=== PATIENT | male | born 1950 | race Caucasian/White ===

== ENCOUNTER → 2016-08-15 | Outpatient (CLI) | payer BC ==
[~2016-08-15] MED LIST: ALBU1AER9 INH; ALPR-411 PO; ASPI-435 PO; ATRINS NEB; ESOM40GR PO; FLUT50SP14 NAE; IPRA1AER2 INH; LEVA1NEB19 INH; MONT1TAB3 PO; OXGN; PARO1TAB29 PO; PSEU60TA80 PO; SYMIN160 INH; TIOTCAP INH
--- NOTE | 2016-08-15 16:12 | DIAGNOSTIC IMAGING REPORT ---
CHEST 2 VIEWS ROUTINE CLINICAL HISTORY: J44.9 COPD, very [id number] Chronic respiratory [id number] COMPARISON STUDY: 02/02/2016 FINDINGS: Emphysematous change. Mild chronic parenchymal fibrotic change. No acute infiltrate. IMPRESSION: Emphysematous and mild chronic fibrotic change. No acute process. Electronically signed by: Miguel Auguste M.D. 08/15/2016 4:11 PM Dictated Date/Time: 08/15/2016 4:10 PM
== END | disposition home or self-care (01) ==
LOC: C.RAD 15:43
PROVIDERS: ATTEND Physician Assistant
DX: J44.9 Chronic obstructive pulmonary disease, unspecified (principal); J96.10 Chronic respiratory failure, unspecified whether with hypoxia or hypercapnia

== ENCOUNTER → 2016-09-05 | Outpatient (CLI) | payer BC ==
--- NOTE | 2016-09-05 14:10 | DIAGNOSTIC IMAGING REPORT ---
CAROTID DOPPLER NECK ART HISTORY: I65.29 Carotid artery stenosis follow-up exam COMPARISON: Carotid Doppler 08/31/2015 TECHNIQUE: Multiple real time sonographic images of the carotid bifurcations were obtained assessing luong scale, color Doppler and spectral wave form appearance FINDINGS: RIGHT CAROTID: The peak systolic velocity measured 97.5 cm/sec. The end diastolic velocity measured 37.2 cm/sec. The ICA to CCA ratio measured 1.2 which correlates with a stenosis of 0-50%. There is mild degree of mixed plaquing within the right carotid bulb LEFT CAROTID: The peak systolic velocity measured 40.1 cm/sec. The end diastolic velocity measured 19.2 cm/sec. The ICA to CCA ratio measured 0.5 which correlates with a stenosis of 0-50%. There is a mild degree of mixed plaquing within the left carotid bulb. There is normal antegrade vertebral flow bilaterally. IMPRESSION: 1. Mild mixed plaquing of the bilateral carotid bulbs without hemodynamically significant stenosis. 2. Normal antegrade vertebral flow bilaterally. The above report was generated using voice recognition software. It may contain grammatical, syntax or spelling errors. Electronically signed by: Geronimo Hanna M.D. 09/05/2016 2:08 PM Dictated Date/Time: 09/05/2016 2:04 PM
== END | disposition home or self-care (01) ==
LOC: C.ULTR 13:16
PROVIDERS: ATTEND Surgery
DX: I65.23 Occlusion and stenosis of bilateral carotid arteries (principal)

== ENCOUNTER → 2016-11-10 | Outpatient (CLI) | payer BC ==
--- NOTE | 2016-11-10 15:27 | DIAGNOSTIC IMAGING REPORT ---
CT OF THE CHEST WITHOUT IV CONTRAST CLINICAL HISTORY: Pulmonary nodule. COMPARISON STUDY: Chest CT October 31, 2011 and October 04, 2015 and PET/CT December 14, 2014. CT DOSE: 245.51 mGycm TECHNIQUE: Axial images of the chest were obtained without IV contrast. Images were reviewed in the axial, sagittal, and coronal planes. IV contrast was not administered for this examination. A dose lowering technique was utilized adhering to the principles of ALARA. FINDINGS: No enlarged axillary, mediastinal or hilar lymph nodes are present. The size of the heart is normal. There is no pericardial effusion. No pneumothorax or pleural effusion is present. There is severe emphysema. There has been interval development of subpleural irregular opacity within the posterior segment of the right upper lobe and superior segment as well as the posterior basilar segment the right lower lobe since CT of October 04, 2015. A 6 cm noncalcified right lower lobe nodule shown image 191 of 371 is similar to chest CT of August 20, 2014. An adjacent centrally calcified nodule is unchanged and is benign. There are no new pulmonary nodules. The bony thorax and upper abdomen are unremarkable on this examination. There are calcified granulomas within the spleen. IMPRESSION: 1. Interval development of irregular subpleural opacities within the right upper and right lower lobes since chest CT of October 04, 2015. The findings favor an infectious process, possibly resolving. However, a follow-up chest CT in 3 months to ensure resolution is recommended to exclude the less likely possibility of a neoplasm. 2. No significant change in several pulmonary nodules since prior studies. These are likely benign. 3. Severe emphysema. Electronically signed by: Glenn Carrasquillo M.D. 11/10/2016 3:26 PM Dictated Date/Time: 11/10/2016 2:19 PM
== END | disposition home or self-care (01) ==
LOC: C.CTS 13:54
PROVIDERS: ATTEND Physician Assistant
DX: R91.8 Other nonspecific abnormal finding of lung field (principal); J43.9 Emphysema, unspecified

== ENCOUNTER → 2017-02-07 | Outpatient (CLI) | payer BC ==
--- NOTE | 2017-02-07 10:41 | DIAGNOSTIC IMAGING REPORT ---
(CHEST) THORAX WITHOUT CT DOSE: 245.95 mGy.cm HISTORY: Follow-up abnormal chest CT. J44.9 COPD, very [id number] scan TECHNIQUE: Multiaxial CT images of the chest were performed without contrast. A dose lowering technique was utilized adhering to the principles of ALARA. COMPARISON: Chest CT 11/10/2016. FINDINGS: Trace mucoid material within the trachea. The remaining central airways are patent. Severe emphysema is again noted. No pleural effusions. No pneumothorax. Dominant 6.3 cm bleb within the left lower lobe. A few scattered subcentimeter nodular densities remain unchanged and are considered to be benign. Calcified granuloma along the right major fissure remains unchanged. Peripheral airspace opacity seen within the right lower lobe and right upper lobe posteriorly have a most completely resolved in the interval. This is consistent with a resolving pneumonitis. No new focal lung consolidations. No suspicious lytic or blastic osseous lesions. No mediastinal or hilar lymphadenopathy. The heart is normal in size. Calcified granuloma seen within the liver and spleen. Healing right posterior 10th rib fracture. IMPRESSION: 1. Near complete resolution of the right lung peripheral airspace opacities. This is consistent with a resolving pneumonitis. 2. Severe emphysema. 3. Healing right posterior 10th rib fracture. Electronically signed by: Augusto Alcantar M.D. 02/07/2017 10:39 AM Dictated Date/Time: 02/07/2017 10:33 AM
== END | disposition home or self-care (01) ==
LOC: C.CTS 10:07
PROVIDERS: ATTEND Physician Assistant
DX: J44.9 Chronic obstructive pulmonary disease, unspecified (principal); R93.8 Abnormal findings on diagnostic imaging of other specified body structures; J43.9 Emphysema, unspecified; S22.31XD Fracture of one rib, right side, subsequent encounter for fracture with routine healing; X58.XXXD Exposure to other specified factors, subsequent encounter

== ENCOUNTER → 2017-02-14 | Outpatient (CLI) | payer BC ==
--- NOTE | 2017-02-14 11:32 | DIAGNOSTIC IMAGING REPORT ---
CHEST 2 VIEWS ROUTINE CLINICAL HISTORY: J43.9 Pulmonary [id number] dyspnea COMPARISON STUDY: 08/15/2016 FINDINGS: Stable chronic emphysematous and fibrotic change. No well-defined infiltrate. Moderate pulmonary hyperaeration stable. Diaphragmatic flattening also stable. IMPRESSION: Diffuse stable emphysematous change. No acute infiltrate. No change from the prior study. The above report was generated using voice recognition software. It may contain grammatical, syntax or spelling errors. Electronically signed by: Miguel Auguste M.D. 02/14/2017 11:30 AM Dictated Date/Time: 02/14/2017 11:29 AM
== END | disposition home or self-care (01) ==
LOC: C.RAD1850 10:53
PROVIDERS: ATTEND Physician Assistant
DX: J43.9 Emphysema, unspecified (principal)

== ENCOUNTER → 2017-03-21 | Outpatient (CLI) | payer OTHER | END | disposition home or self-care (01) | LOC: C.CPL 14:01 | PROVIDERS: ATTEND Physician Assistant | DX: R00.0 Tachycardia, unspecified (principal) ==

== ENCOUNTER → 2017-09-06 | Outpatient (CLI) | payer OTHER ==
--- NOTE | 2017-09-06 11:51 | DIAGNOSTIC IMAGING REPORT ---
BILATERAL CAROTID DOPPLER STUDY HISTORY: I65.29 Carotid artery stenosis Left carotid endarterectomy COMPARISON: Carotid Doppler 09/05/2016. TECHNIQUE: Real-time, grayscale, and color Doppler sonography of the carotid arteries was performed. Imaging reviewed in the transverse and longitudinal planes. All measurements were calculated based on NASCET criteria. FINDINGS: Antegrade flow is seen in the bilateral vertebral arteries. The brachial pressures are hemodynamically similar. Mild to moderate calcified plaque within the right carotid bifurcation. The peak systolic velocity within the right ICA is 100 cm/s. The right systolic ratio is 1.2. The peak systolic velocity within the left ICA is 48 cm/s. The left systolic ratio is 0.6. IMPRESSION: No hemodynamically significant stenosis seen within the carotid arteries. Electronically signed by: Augusto Alcantar M.D. 09/06/2017 11:50 AM Dictated Date/Time: 09/06/2017 11:49 AM
== END | disposition home or self-care (01) ==
LOC: C.ULTR 11:06
PROVIDERS: ATTEND Surgery
DX: I65.29 Occlusion and stenosis of unspecified carotid artery (principal)

== ENCOUNTER 2018-04-09 07:55 | Inpatient (IN) ==
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
[~2018-04-09 07:55] MED LIST changes: -ALBU1AER9 INH; -ALPR-411 PO; -ASPI-435 PO; -ATRINS NEB; +CEFAZOLIN 1000MG 1,000 MG/7.5 ML SYR IV SCH; -ESOM40GR PO; -FLUT50SP14 NAE; -IPRA1AER2 INH; -LEVA1NEB19 INH; +LR 15ML/HR IV SCH; -MONT1TAB3 PO; -OXGN; -PARO1TAB29 PO; -PSEU60TA80 PO; -SYMIN160 INH; -TIOTCAP INH
[2018-04-09 08:24] LABS: Hematocrit (blood only) 41.8 % (42-52); Hemoglobin 12.9 g/dL (14.0-18.0); Mean Corpuscular Volume 99.1 fL (80-100); Mean Platelet Volume 9.8 fL (7.4-10.4); Platelet Count 218 K/uL (130-400); RDW Coefficient of Variation 14.4 % (11.5-14.5); RDW Standard Deviation 51.7 fL (36.4-46.3); Red Blood Count 4.22 M/uL (4.7-6.1); White Blood Count 10.85 K/uL (4.8-10.8)
[2018-04-09 08:38] LABS: Mean Corpuscular Hgb Conc 30.9 g/dL (32-36)
[2018-04-09 08:39] LABS: BUN Creatinine Ratio 31.8 (10-20); Calcium 8.7 mg/dl (8.5-10.1); Creatinine Clr Calc Pharmacy 75.8 ml/min; Est GFR (Non-African American) 95.7
[2018-04-09] MEDS ORDERED: ALBUTEROL 0.083% NEBU SOLN 3 ML VIAL NEB STA (08:51)
[2018-04-09] MEDS ORDERED: CEFAZOLIN 1,000 MG/7.5 ML IV PUSH IV ONE (10:10)
[2018-04-09] MEDS ORDERED: MIDAZOLAM HCL 1 MG/ML 2ML VIAL ONE (10:39)
[2018-04-09] MEDS ORDERED: fentaNYL citrate 100 MCG/2 ML VIAL ONE (11:47)
[2018-04-09] MEDS ORDERED: KETAMINE HCL INJ 50 MG/ML 10 ML VIAL ONE (11:47)
[2018-04-09] MEDS ORDERED: BUPIVACAINE/EPINEPHRINE 0.5% MPF 1:200,000 30 ML VIAL ONE (12:06)
[2018-04-09] MEDS ORDERED: ALBUMIN HUMAN 5% 12.5 GM/250 ML VIAL IV ONE (12:07)
[2018-04-09] MEDS ORDERED: LIDOCAINE 2% JELLY 5 ML TUBE ONE (12:10)
--- NOTE | 2018-04-09 12:11 | History & Physical Bridge Note ---
Date of Service April 09, 2018 History & Physical Bridge Note I have examined the patient, reviewed the History & Physical and in the interval since the performance of the History & Physical I have noted the following changes of clinical significance: no changes noted
--- NOTE | 2018-04-09 12:37 | Communication Note ---
Date of Service: April 09, 2018 Patient oxygen saturation dropped to the 60s when laying flat due to his COPD. At this point we thought to be better to try and optimize his respiratory status prior to doing the surgery. He will be admitted today for optimization.
--- NOTE | 2018-04-09 13:08 | Anesthesiology Progress Note ---
Date of Service April 09, 2018 Patient case cancelled due to severe hypoxemia. SPO2 % 65% on oxygen. Pt unable to lie supine. Pt panics.D/W Dr Beck, he agrees that the pt should be admitted and optimized to the extent piossible. Pt is too high risk for GETA at this time. He may require postop mechanical ventilation in ICU indefinitely. Physical Exam Vital Signs Last Vital Signs Temp 36.6 C 04/09/18 08:39 Pulse 90 04/09/18 08:59 Resp 26 H 04/09/18 08:59 BP 97/57 L 04/09/18 08:39 Pulse Ox 96 04/09/18 08:59 Results & Data Medications Administered Lactated Ringer's (Lr) 1,000 mls @ 80 mls/hr IV .[id number] LITO Stop: 04/09/18 18:29 Last Infusion: 04/09/18 12:21 Dose: 0 mls/hr Admin: 04/09/18 08:45 Dose: 80 mls/hr
[2018-04-09] MEDS ORDERED: ARFORMOTEROL TART 15MCG/2ML VIAL INH PRN (14:42)
[2018-04-09] MEDS ORDERED: ALPRAZolam 0.25 MG TABLET PO PRN (14:42)
[2018-04-09] MEDS ORDERED: ALBUTEROL HFA 8 GM INHALER INH PRN (14:42)
[2018-04-09] MEDS: IPRATROPIUM BROMIDE/ALBUTEROL respimat INH INH SCH ×2 (16:11→19:12)
--- NOTE | 2018-04-09 17:33 | XRay Report ---
XR chest 2V routine HISTORY: copd, hypoxia COMPARISON: Chest 02/27/2018. FINDINGS: No pneumothorax. No pleural effusions. The heart is normal in size. Severe emphysema persis ts. Improved aeration within the right midlung zone linear density. No new focal lung consolidations. No evidence for edema. IMPRESSION: 1. Severe emphysema. 2. Near complete resolution of the right midlung zone linear density. Electronically signed by: Augusto Alcantar M.D. 04/09/2018 5:31 PM
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
[2018-04-09] MEDS: FLUTICASONE/SALMETEROL (ADVAIR) 500/50 INH 14 PUFF INH SCH (20:49)
[2018-04-09] MEDS: ATORVASTATIN 40 MG TAB PO SCH (20:50)
[2018-04-09] MEDS: guaiFENesin 600 MG TABCR PO SCH (20:50)
[2018-04-09] MEDS: MONTELUKAST SODIUM 10 MG TABLET PO SCH (20:51)
[2018-04-09] MEDS: CETIRIZINE HCL 10 MG TABLET PO SCH (20:52)
[2018-04-09] MEDS: ALBUT/IPRATROP 3MG/0.5MG NEB 3 ML VIAL NEB SCH (20:57)
[2018-04-09] MEDS ORDERED: PSEUDOEPHEDRINE HCL 30 MG TAB PO SCH (21:00)
[2018-04-09] MEDS ORDERED: MUPIROCIN 2% OINT 22 GM TUBE EXT PRN (21:00)
[2018-04-09] MEDS ORDERED: PSEUDOEPHEDRINE GUAIFENESIN PO SCH (21:00)
[2018-04-09] MEDS ORDERED: methylPREDNISolone 20 MG in SYRINGE 0 ML IV SCH (21:00)
[2018-04-09] MEDS: methylPREDNISolone 60 MG in SYRINGE 0 ML IV SCH (21:52)
[2018-04-10] MEDS: methylPREDNISolone 60 MG in SYRINGE 0 ML IV SCH ×3 (04:10→20:18)
[2018-04-10] MEDS: ALBUT/IPRATROP 3MG/0.5MG NEB 3 ML VIAL NEB SCH ×4 (07:21→18:50)
[2018-04-10] MEDS: guaiFENesin 600 MG TABCR PO SCH ×2 (07:59→20:18)
[2018-04-10] MEDS: ASPIRIN 81 MG ECTAB PO SCH (07:59)
[2018-04-10] MEDS: PARoxetine HCl 20 MG TAB PO SCH (07:59)
[2018-04-10] MEDS: FLUTICASONE/SALMETEROL (ADVAIR) 500/50 INH 14 PUFF INH SCH ×2 (08:00→20:17)
[2018-04-10] MEDS: PANTOprazole 40 MG TAB PO SCH (08:00)
[2018-04-10] MEDS: TIOTROPIUM BROMIDE 5 PUFF/90 MCG INH INH SCH (08:01)
--- NOTE | 2018-04-10 12:11 | Surgery Progress Note ---
Date of Service April 10, 2018 Assessment & Plan (1) AAA (abdominal aortic aneurysm) without rupture: We will plan on a endovascular repair of his abdominal aortic aneurysm under local with sedation if his respiratory status improves. (2) COPD (chronic obstructive pulmonary disease): This patient has exacerbation of his chronic obstructive lung disease. He is being seen and managed by medicine and pulmonary medicine. Subjective Patient claims he is feeling a little better today. He is still wheezing but is able to breathe better than what he did yesterday. Physical Exam 2 Vital Signs (Past 24 Hours): Last Vital Signs Temp 36.6 C 04/10/18 11:04 Pulse 91 H 04/10/18 11:04 Resp 18 04/10/18 11:04 BP 133/65 04/10/18 11:04 Pulse Ox 98 04/10/18 11:04 Patient is awake alert oriented x3. He is has bilateral wheezes. He does appear slightly short of breath.
--- NOTE | 2018-04-10 15:52 | Hospitalist Progress Note ---
Date of Service April 10, 2018 Assessment & Plan (1) AAA (abdominal aortic aneurysm) without rupture: No concern for AAA rupture. Planning for OR once pulm status is more situated. - Defer to vascular team for surgical planning (2) COPD (chronic obstructive pulmonary disease): Still wheezing on exam today, but agree with initial hospitalist that it is uncertain if wheezing is baseline. Patient stated he feels this was more of a panic attack, and reports he is pretty much at baseline. Currently breathing comfortably with his home 3L NC. - Continue methylprednisolone - Continue home Advair, Singular, and Spiriva inhalers - Continue DuoNebs standing - From medical standpoint, I think he would likely be stable for surgery in the next 1-2 days, but also defer to pulm as this is his main concern (3) Anxiety: Chronic issue; appears fairly severe. - Continue home meds - Could consider small dose of Ativan prior to going to surgery to help avert a panic attack that might delay surgery further (4) PUD (peptic ulcer disease): Continue home meds (5) Tobacco use disorder: Nicotine patch (6) DVT prophylaxis: As per vas surgery Thank you for the consult. We will follow along with any issues. Subjective 67yo M w/ hx of severe COPD who presented with shortness of breath prior to induction. Patient reports his breathing has improved today. He is still wheezing but is able to breathe better than what he did yesterday. Reports no fevers/chills, chest pain, abdominal pain, nausea, or vomiting. Physical Exam 2 Vital Signs (Past 24 Hours): Last Vital Signs Temp 36.6 C 04/10/18 11:04 Pulse 94 H 04/10/18 15:26 Resp 18 04/10/18 15:26 BP 133/65 04/10/18 11:04 Pulse Ox 97 04/10/18 15:26 Constitutional: WD/WN, vitals as above Eyes: + anicteric sclerae Neck: normal visual inspection and trachea midline Respiratory: normal respiratory effort and + prolonged expiratory phase; no respiratory distress and no labored breathing Auscultation: + wheezes ( expiratory and inspiratory) Cardiovascular: Rate/Rhythm: regular rate and regular rhythm Gastrointestinal (Abdomen): Inspection/Auscultation: abdomen not distended Percussion/Palpation: abdomen soft; abdomen nontender Musculoskeletal: Head/Neck/Chest: normocephalic and head atraumatic Skin: no rashes, warm and dry Neurologic: awake; not confused Speech / Cognition: normal speech Psychiatric: A+Ox3, euthymic affect
--- NOTE | 2018-04-10 19:27 | Pulmonology Progress Note ---
Date of Service April 10, 2018 Assessment & Plan (1) COPD (chronic obstructive pulmonary disease): Impression: 1. Severe COPD, with exacerbation, gold level 3, home O2 dependent. 2. Nicotine addiction. 3. AAA, preop eval for repair from pulmonary standpoint. Plan: 1. This patient with advanced COPD, currently in exacerbation, going for vascular procedure, place the patient at risk greater than 50% for sedation and 100% for general anesthesia by ATS criteria. His risk stratification is very high for intracavitary procedure. 2. Incentive spirometry. 3. Allow the patient adequate time on systemic steroids, which I will increase it to every 6 hours, prior to the procedure. Hopefully in the next 24-48 hours. 4. Oxygen and bronchodilators. Thank you, will follow. Subjective The patient continues to have increasing shortness of breath, persistent wheezing, is nonambulatory due to shortness of breath. No fever. Physical Exam 2 Vital Signs (Past 24 Hours): Last Vital Signs Temp 36.7 C 04/10/18 15:16 Pulse 102 H 04/10/18 18:50 Resp 22 04/10/18 18:50 BP 147/91 H 04/10/18 15:16 Pulse Ox 94 04/10/18 18:50 Physical Exam: Vital signs are stable, no fever, O2 saturation is 94% on 3 L, no JVP, bilateral wheezing, S1-S2, abdomen is benign, no edema. Cachectic. Results & Data Laboratory Results Labs were reviewed from yesterday, are at his baseline. Diagnostic Findings Imaging also were reviewed which showed advanced COPD. PFTs also were reviewed which showed gold level 3 with advanced COPD, space what 212%.
[2018-04-10] MEDS: ATORVASTATIN 40 MG TAB PO SCH (20:18)
[2018-04-10] MEDS: MONTELUKAST SODIUM 10 MG TABLET PO SCH (20:18)
[2018-04-10] MEDS: CETIRIZINE HCL 10 MG TABLET PO SCH (20:18)
[2018-04-11] MEDS: methylPREDNISolone 60 MG in SYRINGE 0 ML IV SCH ×3 (05:23→20:13)
[2018-04-11 06:47] LABS: Hematocrit (blood only) 34.8 % (42-52); Hemoglobin 11.1 g/dL (14.0-18.0); Mean Corpuscular Hgb Conc 31.9 g/dL (32-36); Mean Corpuscular Volume 96.1 fL (80-100); Mean Platelet Volume 9.5 fL (7.4-10.4); Platelet Count 181 K/uL (130-400); RDW Coefficient of Variation 14.1 % (11.5-14.5); RDW Standard Deviation 49.6 fL (36.4-46.3); Red Blood Count 3.62 M/uL (4.7-6.1); White Blood Count 9.69 K/uL (4.8-10.8)
[2018-04-11] MEDS: ALBUT/IPRATROP 3MG/0.5MG NEB 3 ML VIAL NEB SCH ×4 (07:01→19:12)
[2018-04-11 07:25] LABS: BUN Creatinine Ratio 34.5 (10-20); Calcium 8.5 mg/dl (8.5-10.1); Creatinine Clr Calc Pharmacy 110.2 ml/min; Est GFR (African American) 129.7; Est GFR (Non-African American) 111.9; Magnesium 2.2 mg/dl (1.8-2.4); Potassium 4.2 mmol/L (3.5-5.1)
[2018-04-11] MEDS: FLUTICASONE/SALMETEROL (ADVAIR) 500/50 INH 14 PUFF INH SCH ×2 (08:42→20:11)
[2018-04-11] MEDS: ASPIRIN 81 MG ECTAB PO SCH (08:44)
[2018-04-11] MEDS: PARoxetine HCl 20 MG TAB PO SCH (08:44)
[2018-04-11] MEDS: guaiFENesin 600 MG TABCR PO SCH ×2 (08:44→20:12)
[2018-04-11] MEDS: PANTOprazole 40 MG TAB PO SCH (08:45)
[2018-04-11] MEDS: TIOTROPIUM BROMIDE 5 PUFF/90 MCG INH INH SCH (08:45)
[2018-04-11] MEDS: ALBUTEROL HFA 8 GM INHALER INH PRN ×2 (08:49→13:42)
[2018-04-11] MEDS ORDERED: SODIUM CHLORIDE 0.9% 250 ML IV PRN (13:05)
--- NOTE | 2018-04-11 13:14 | Surgery Progress Note ---
Date of Service April 11, 2018 Assessment & Plan (1) AAA (abdominal aortic aneurysm) without rupture: We are planning to have him undergo a percutaneous endovascular repair of his abdominal aortic aneurysm tomorrow under local with sedation. (2) COPD (chronic obstructive pulmonary disease): He appears fairly stable from his COPD at this time on his steroid dose. Subjective Patient claims he is feeling a little better today. He is still wheezing slightly. He is able to lay flat with one pillow without any shortness of breath. Physical Exam 2 Vital Signs (Past 24 Hours): Last Vital Signs Temp 36.9 C 04/11/18 11:45 Pulse 99 H 04/11/18 11:45 Resp 16 04/11/18 11:45 BP 156/75 H 04/11/18 11:45 Pulse Ox 94 04/11/18 11:45 On exam he has distant breath sounds. There is still a small amount of wheezing present in both lung verma.
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
--- NOTE | 2018-04-11 16:27 | Hospitalist Progress Note ---
Date of Service April 11, 2018 Assessment & Plan (1) AAA (abdominal aortic aneurysm) without rupture: No concern for AAA rupture. Planning for OR once pulm status is more situated. - Defer to vascular team for surgical planning - Likely tomorrow (2) COPD (chronic obstructive pulmonary disease): Still wheezing on exam today, but improved. Agree with initial hospitalist that it is uncertain if wheezing is baseline. Patient stated he feels this was more of a panic attack, and reports he is pretty much at baseline. Currently breathing comfortably with his home 3L NC. - Continue methylprednisolone (increased by pulmonology on 04/10) - Continue home Advair, Singular, and Spiriva inhalers - Continue DuoNebs standing - From medical standpoint, I think he would likely be stable for surgery, but defer to pulm (3) COPD exacerbation: (4) Anxiety: Chronic issue; appears fairly severe. - Continue home meds - Could consider small dose of Ativan prior to going to surgery to help avert a panic attack that might delay surgery further (5) PUD (peptic ulcer disease): Continue home meds (6) Tobacco use disorder: Nicotine patch (7) Weight loss: Cachexia/underweight/moderate malnutrition Clinical Indicators: Noted pt with BMI of 17.4. Per carding machine feeder assessment, pt has moderate loss of muscle mass seen in the clavicle bone region. Has had a wt loss of 10 lb (7.6%) in the past 6 months and a reported overall wt loss of 100 lb in the last couple of years. - Provide high kcal/high protein snacks snacks bid btwn meals, liberalize regular diet, monitor oral intake, weights and labs (8) Chronic hypoxemic respiratory failure: Chronic hypoxic respiratory failure Clinical Indicators: 67 yo male presenting for AAA repair who became dyspenic when being prepared for surgery. Documentation indicates pt with severe COPD with chronic home O2 use. Treatment: chronic tx includes home O2 use, albuterol nebs, combivent, advair, brovana, singulair, spiriva (9) DVT prophylaxis: As per vas surgery Thank you for the consult. We will follow along with any issues. Subjective 67yo M w/ hx of severe COPD who presented with shortness of breath prior to induction. Patient reports his breathing has improved today. He's basically at baseline. No cough. Reports no fevers/chills, chest pain, abdominal pain, nausea, or vomiting. Physical Exam 2 Vital Signs (Past 24 Hours): Last Vital Signs Temp 36.9 C 04/11/18 11:45 Pulse 95 H 04/11/18 15:45 Resp 18 04/11/18 15:45 BP 156/75 H 04/11/18 11:45 Pulse Ox 97 04/11/18 15:45 Constitutional: WD/WN, vitals as above Eyes: normal visual verma by confrontation and + anicteric sclerae Neck: normal visual inspection and trachea midline Respiratory: normal respiratory effort and + prolonged expiratory phase; no respiratory distress and no labored breathing Auscultation: + wheezes ( expiratory and inspiratory) Cardiovascular: Rate/Rhythm: regular rate and regular rhythm Gastrointestinal (Abdomen): Inspection/Auscultation: abdomen not distended Percussion/Palpation: abdomen soft; abdomen nontender Musculoskeletal: Head/Neck/Chest: normocephalic and head atraumatic Skin: no rashes, warm and dry Neurologic: awake; not confused Speech / Cognition: normal speech Psychiatric: A+Ox3, euthymic affect
[2018-04-11] MEDS: ATORVASTATIN 40 MG TAB PO SCH (20:12)
[2018-04-11] MEDS: CETIRIZINE HCL 10 MG TABLET PO SCH (20:13)
[2018-04-11] MEDS: MONTELUKAST SODIUM 10 MG TABLET PO SCH (20:13)
--- NOTE | 2018-04-11 21:11 | Pulmonology Progress Note ---
Date of Service April 11, 2018 Assessment & Plan (1) COPD (chronic obstructive pulmonary disease): Impression: 1. Severe COPD, with exacerbation, gold level 3, home O2 dependent. 2. Nicotine addiction. 3. AAA, preop eval for repair from pulmonary standpoint. Plan: 1. This patient with advanced COPD, currently in exacerbation, going for vascular procedure, place the patient at risk greater than 50% for sedation and 100% for general anesthesia by ATS criteria. His risk stratification is high for intracavitary procedure. However, given the necessity of the procedure, the patient is medically clear from pulmonary standpoint to the procedure. Would be glad to take him after the procedure to the ICU. 2. Incentive spirometry. 3. Anxiety is playing a role in this patient, I will add Xanax twice daily. 4. Oxygen and bronchodilators. Thank you, will follow. Subjective He is feeling better, he continues to be anxious, concerned about the procedure he is having tomorrow, I assured him that we do not anticipate bad outcome. I will be glad to take him into the ICU after the procedure. Physical Exam 2 Vital Signs (Past 24 Hours): Last Vital Signs Temp 36.9 C 04/11/18 19:24 Pulse 108 H 04/11/18 19:24 Resp 22 04/11/18 19:24 BP 154/86 H 04/11/18 19:24 Pulse Ox 94 04/11/18 19:24 Physical Exam: Appeared to be apprehended, although his vital signs are stable , he is on 5 L of oxygen 94%. Slightly tachycardic. No JVP, does not use accessory muscles, wheezing is scattered, S1-S2 regular rate and rhythm, abdomen is benign, no edema, cold extremities. No rash. Results & Data Laboratory Results No leukocytosis, the rest of his labs has been stable. Diagnostic Findings No new imaging.
[2018-04-11] MEDS: ALPRAZolam 0.25 MG TABLET PO SCH (22:02)
[2018-04-12] MEDS: methylPREDNISolone 60 MG in SYRINGE 0 ML IV SCH ×2 (05:26→09:56)
[2018-04-12] MEDS ORDERED: CEFAZOLIN 1000MG 1,000 MG/7.5 ML SYR IV SCH (06:00)
[2018-04-12] MEDS ORDERED: HYDROCORTISONE SOD SUCCINATE 100 MG/2 ML VIAL IM SCH (06:00)
--- NOTE | 2018-04-12 07:00 | History & Physical Bridge Note ---
Date of Service April 12, 2018 History & Physical Bridge Note Patient for PEVAR of his AAA today under Mac anesthesia. I have discussed the risks options and benefits of the procedure with the patient. The patient understands the risks options and benefits and agrees to the procedure. I have examined the patient, reviewed the History & Physical and in the interval since the performance of the History & Physical I have noted the following changes of clinical significance: no changes noted
[2018-04-12 07:20] LABS: Hematocrit (blood only) 36.9 % (42-52); Hemoglobin 11.5 g/dL (14.0-18.0); Mean Corpuscular Hgb Conc 31.2 g/dL (32-36); Mean Corpuscular Volume 96.3 fL (80-100); Mean Platelet Volume 9.6 fL (7.4-10.4); Platelet Count 191 K/uL (130-400); RDW Coefficient of Variation 14.5 % (11.5-14.5); RDW Standard Deviation 51.6 fL (36.4-46.3); Red Blood Count 3.83 M/uL (4.7-6.1)
[2018-04-12] MEDS: ALBUT/IPRATROP 3MG/0.5MG NEB 3 ML VIAL NEB SCH ×4 (07:20→20:12)
[2018-04-12 07:46] LABS: BUN Creatinine Ratio 43.9 (10-20); Calcium 8.7 mg/dl (8.5-10.1); Creatinine Clr Calc Pharmacy 108.1 ml/min; Est GFR (African American) 128.7; Magnesium 2.2 mg/dl (1.8-2.4); Potassium 4.2 mmol/L (3.5-5.1)
[2018-04-12] MEDS: FLUTICASONE/SALMETEROL (ADVAIR) 500/50 INH 14 PUFF INH SCH ×2 (09:15→19:29)
[2018-04-12] MEDS: TIOTROPIUM BROMIDE 5 PUFF/90 MCG INH INH SCH (09:15)
[2018-04-12] MEDS ORDERED: LIDOCAINE/EPINEPHRINE 1% INJ 50 ML VIAL ONE (09:35)
[2018-04-12] MEDS ORDERED: LIDOCAINE 2% JELLY 5 ML TUBE ONE (09:49)
[2018-04-12] MEDS ORDERED: HYDROCORTISONE SOD SUCCINATE 100 MG/2 ML VIAL ONE (09:51)
[2018-04-12] MEDS ORDERED: HYDROCORTISONE SOD SUCCINATE 100 MG/2 ML VIAL IV SCH (10:15)
--- NOTE | 2018-04-12 11:51 | Post Operative Brief Note ---
Immediate Post Op Note v1 Date of Surgery April 12, 2018 Pre & Post Diagnosis Operation Date: 04/09/18 10:20 <No data on this case meets the specified criteria> Operation Date: 04/12/18 10:40 Pre-Op Diagnosis: Abdominal Aortic Aneurysm Post-Op Diagnosis: Abdominal Aortic Aneurysm Procedure Operation Date: 04/09/18 10:20 Actual Procedures p Percutaneous Endovascular Aneurysm Repair - Evan Beck MD Operation Date: 04/12/18 10:40 Actual Procedures p Percutaneous Endovascular Aneurysm Repair(Bilateral) - Evan Beck MD Surgeon Evan Beck MD Supervisor Corduroy Cutting NONE Estimated Blood Loss 100 Findings Consistent with Post-Op Diagnosis Drains Mejia Catheter (16 Turk[place] 10 cc balloon inserted at 1048 by Federico Lowry RN without difficulty) Anesthesia Type MAC Complications none Disposition Accompanied Patient To Recovery: No Disposition: Recovery Room
[2018-04-12] MEDS ORDERED: ARISTA ABSORBABLE HEMOSTAT 3GM TOP ONE (11:58)
[2018-04-12] MEDS ORDERED: VISIPAQUE IV PRN (11:58)
[2018-04-12] MEDS ORDERED: ALBUTEROL 0.083% NEBU SOLN 3 ML VIAL INH PRN (12:09)
[2018-04-12] MEDS ORDERED: ONDANSETRON INJ 2 MG/ML 2 ML VIAL IV PRN (12:09)
[2018-04-12] MEDS ORDERED: LABETALOL HCL IV 5 MG/ML 20ML IV PRN (12:09)
[2018-04-12] MEDS ORDERED: ATROPINE SULFATE 0.1 MG/ML 10ML SYR IV PRN (12:09)
[2018-04-12] MEDS ORDERED: PROMETHAZINE HCL 12.5 MG in SODIUM CHLORIDE 0.9% 50 ML IV PRN (12:09)
[2018-04-12] MEDS ORDERED: NALOXONE HCL 0.4 MG/1 ML VIAL/CARP IV PRN (12:09)
[2018-04-12] MEDS ORDERED: ePHEDrine sulfate 50 MG/ML AMP IV PRN (12:09)
--- NOTE | 2018-04-12 12:23 | Operative Report ---
Post Operative Report Pre & Post Diagnosis Operation Date: 04/09/18 10:20 <No data on this case meets the specified criteria> Operation Date: 04/12/18 10:40 Pre-Op Diagnosis: Abdominal Aortic Aneurysm Post-Op Diagnosis: Abdominal Aortic Aneurysm Procedure Operation Date: 04/09/18 10:20 Actual Procedures p Percutaneous Endovascular Aneurysm Repair - Evan Beck MD Operation Date: 04/12/18 10:40 Actual Procedures p Percutaneous Endovascular Aneurysm Repair, Bilateral percutaneous femoral artery closures, ultrasound guidance for left femoral artery puncture - Evan Beck MD Surgeon Evan Beck MD Rail Layer NONE Estimated Blood Loss 100 Findings Consistent with Post-Op Diagnosis Specimens None Anesthesia Type MAC Complications none Disposition Accompanied Patient To Recovery: No Disposition: Recovery Room Indications This patient is a 67-year-old gentleman with an enlarging abdominal aortic aneurysm. Is now 5.5 cm in size. He has severe COPD. An endovascular repair under local with sedation was recommended. He is not a candidate for an open repair. I have discussed the risks options and benefits of the procedure with the patient. The patient understands the risks options and benefits and agrees to the procedure. Description of Procedure The patient was taken to the operating room placed in the supine position. After both groins were prepped and draped in a sterile manner local anesthetic was administered to the right groin. A percutaneous puncture was made of the right common femoral artery. Wire was inserted a 5 [place] sheath was inserted over the wire. An injection done at that time showed the sheath to be in the distal common femoral artery. We therefore re-poked the common femoral artery higher up. This was in the main common femoral artery in the midportion. We then preclosed it with 2 Perclose devices. We then inserted an 8 [place] sheath. 035 Glidewire was inserted and passed up to the super renal aorta. A Kumpe catheter was inserted and the wire was exchanged to a Marquez wire. A [place] sheath was then exchanged to a 12 [place] sheath. We then anesthetized the left groin. An attempt was made to percutaneous puncture of the left common femoral artery. Artery could not be entered. We then used ultrasound to image the artery. The artery was patent. We then used ultrasound guidance to puncture the artery and the midportion. A wire was inserted. 5 [place] sheath was then inserted over the wire. An injection then showed this puncture to be in the common femoral artery on the left side. The puncture was then pre-closed with 3 Perclose devices. We then passed an 035 wire into the suprarenal aorta. Kumpe catheter was then used to exchange this wire to a Marquez wire. The puncture was then dilated with a 12 [place] dilator followed by 16 [place] dilator. We then inserted an 18 [place] sheath. A pigtail was inserted up the right groin over the Marquez wire. A 28 x 14-1/2 x 16 excluder device was inserted through the left sheath. It was passed up to the infrarenal aorta. The Marquez wire was removed from the pigtail and an injection was then performed. Aortogram showed where the renal arteries were. The graft was then positioned just below the renal arteries. The main body was then opened proximally. Another injection was done to confirm the positioning. It was positioned just below the renal arteries. We then deployed the hooks. The 18 [place] sheath had been pulled down below the gait prior to deploying the main body. We then pulled the 12 [place] sheath down into the iliac. 035 wire was inserted through the pigtail and the pigtail was removed. We then inserted a Kumpe catheter. Using a Kumpe catheter and an 035 Glidewire the the gait was cannulated. The Kumpe was passed up into the main body. Wire was pulled back and the Kumpe spun easily. We then remove the 035 wire and inserted a Marquez wire. The pigtail was then inserted. 12 [place] sheath was pulled back down into the external iliac. An injection was then performed which showed the internal iliac artery origin. Using a marker pig was decided to use a 14 x 12 contralateral limb. The pigtail was removed. Using the 12 [place] dilator from the sheath the sheath was advanced into the gate. Dilator was then removed. The 14 x 12 contralateral limb was inserted. It was placed in appropriate position. The 12 [place] sheath was pulled downward and the limb was deployed. Using a Q50 balloon up the right side the main body and contralateral limb were approximated to the wall. Both proximal distal ends of the overlaps were ballooned with the Q50 balloon. This was then removed. It was passed up the left groin and the contralateral limb was then ballooned to approximate the distal end. Balloon was then removed. Pigtail was reinserted. A final arteriogram was done showing the proximal distal ends of the graft without any type I endoleak. No type II endoleak's or type III endoleak's were visualized. There was a kink in the external iliac on the left side. We then pulled the sheath down slightly as well as the wire and reinjected. Once the external iliac return to its normal curvature the artery was widely patent with no narrowing seen. We then reinserted the 035 wire through the pigtail with the pigtail. The 12 [place] sheath was then pulled and the Perclose was tied without difficulty. Adequate hemostasis was noted of the right side. We then reinserted the wire through the 5 [place] sheath and this was closed using a Star closure device. The left side was then addressed. The sheath was pulled from the left side all 3 Perclose were were tied. Adequate hemostasis was seen in the left side. Shant was used in the puncture sites. Sterile dressings were applied to the wounds.The patient left the operation room in satisfactory condition and tolerated the procedure well. All needle and sponge counts were correct at the end of the procedure. I attest to the content of the Intraoperative Record and any orders documented therein. Any exceptions are noted below.
--- NOTE | 2018-04-12 13:15 | Anesthesiology Progress Note ---
Date of Service April 12, 2018 Anesthesia Post Procedure Vital Signs Vital Signs: Temp Pulse Pulse Pulse Resp BP Pulse Ox 04/12/18 13:10 84 15 117/73 95 04/12/18 13:00 84 20 149/85 H 95 04/12/18 12:50 37.0 C 84 18 144/82 H 100 04/12/18 12:40 86 20 156/89 H 100 04/12/18 12:30 85 18 152/88 H 100 04/12/18 12:20 91 H 18 150/81 H 100 04/12/18 12:12 36.3 C L 94 H 19 157/78 H 100 04/12/18 10:03 37.3 C 92 H 22 146/87 H 04/12/18 07:23 88 16 96 04/12/18 07:12 36.3 C L 106 H 19 141/75 H 94 04/12/18 03:32 36.5 C 97 H 19 126/75 95 04/12/18 00:00 95 H 04/11/18 23:13 36.7 C 102 H 18 144/84 H 95 04/11/18 19:24 36.9 C 108 H 22 154/86 H 94 04/11/18 19:12 101 H 16 98 04/11/18 16:44 109 H 04/11/18 16:31 36.5 C 95 H 24 137/69 94 04/11/18 15:45 95 H 18 97 04/11/18 15:25 36.7 C 95 H 18 136/76 97 Pain Intensity Bilateral Groin: Pain Intensity: 0 Notes Mental Status: alert / awake / arousable Patient Amnestic to Procedure: Yes Nausea / Vomiting: adequately controlled Pain: adequately controlled Airway Patency, RR, SpO2: stable & adequate BP & HR: stable & adequate Hydration State: stable & adequate Anesthetic Complications: no major complications apparent
[2018-04-12] MEDS ORDERED: OXYCODONE/ACETAMINOPHEN 5mg/325mg TAB PO PRN (14:20)
[2018-04-12] MEDS: guaiFENesin 600 MG TABCR PO SCH ×2 (14:39→19:30)
[2018-04-12] MEDS: PARoxetine HCl 20 MG TAB PO SCH (14:39)
[2018-04-12] MEDS: PANTOprazole 40 MG TAB PO SCH (14:39)
[2018-04-12] MEDS: ASPIRIN 81 MG ECTAB PO SCH (14:39)
[2018-04-12] MEDS: ALPRAZolam 0.25 MG TABLET PO SCH ×2 (14:40→19:33)
[2018-04-12] MEDS: D5W AND 1/2NSS 1,000 ML IV SCH (14:42)
--- NOTE | 2018-04-12 15:49 | Hospitalist Progress Note ---
Date of Service April 12, 2018 Assessment & Plan (1) AAA (abdominal aortic aneurysm) without rupture: No concern for AAA rupture. - S/p endovascular AAA repair with Dr. Beck on 04/12 - Follow up per primary team (2) COPD (chronic obstructive pulmonary disease): Still mild wheezing on exam today, but improved. Agree with initial hospitalist that it is uncertain if wheezing is baseline. Currently breathing comfortably with his home 3L NC. - Continue methylprednisolone (increased by pulmonology on 04/10) - Continue home Advair, Singular, and Spiriva inhalers - Continue DuoNebs standing - From medical standpoint, he is stable for discharge with a steroid taper and outpatient PCP or pulmonology follow up (3) COPD exacerbation: (4) Anxiety: Chronic issue; appears fairly severe. - Continue home meds (5) PUD (peptic ulcer disease): Continue home meds (6) Tobacco use disorder: Nicotine patch (7) Weight loss: Cachexia/underweight/moderate malnutrition Clinical Indicators: Noted pt with BMI of 17.4. Per food service manager assessment, pt has moderate loss of muscle mass seen in the clavicle bone region. Has had a wt loss of 10 lb (7.6%) in the past 6 months and a reported overall wt loss of 100 lb in the last couple of years. - Provide high kcal/high protein snacks snacks bid btwn meals, liberalize regular diet, monitor oral intake, weights and labs (8) Chronic hypoxemic respiratory failure: Chronic hypoxic respiratory failure Clinical Indicators: 67 yo male presenting for AAA repair who became dyspenic when being prepared for surgery. Documentation indicates pt with severe COPD with chronic home O2 use. Treatment: chronic tx includes home O2 use, albuterol nebs, combivent, advair, brovana, singulair, spiriva (9) DVT prophylaxis: As per [facility] surgery Given medical stability, Hospital Medicine team will sign off. Please re- consult with any questions or concerns. Thank you for letting us assist in the care of this patient! Subjective 67yo M w/ hx of severe COPD who presented with shortness of breath prior to induction. Patient reports his breathing has is at baseline. Happy procedure is done. Reports no fevers/chills, chest pain, abdominal pain, nausea, or vomiting. Physical Exam 2 Vital Signs (Past 24 Hours): Last Vital Signs Temp 36.8 C 04/12/18 13:50 Pulse 86 04/12/18 15:15 Resp 31 H 04/12/18 15:15 BP 152/90 H 04/12/18 15:01 Pulse Ox 95 04/12/18 15:15 Constitutional: WD/WN, vitals as above Eyes: normal visual verma by confrontation and + anicteric sclerae Neck: normal visual inspection and trachea midline Respiratory: normal respiratory effort and + prolonged expiratory phase; no respiratory distress and no labored breathing Auscultation: + wheezes ( expiratory and inspiratory) Cardiovascular: Rate/Rhythm: regular rate and regular rhythm Gastrointestinal (Abdomen): Inspection/Auscultation: abdomen not distended Percussion/Palpation: abdomen soft; abdomen nontender Musculoskeletal: Head/Neck/Chest: normocephalic and head atraumatic Skin: no rashes, warm and dry Neurologic: awake; not confused Speech / Cognition: normal speech Psychiatric: A+Ox3, euthymic affect
[2018-04-12] MEDS: CEFAZOLIN 1000MG 1,000 MG/7.5 ML SYR IV SCH (17:46)
--- NOTE | 2018-04-12 18:17 | Pulmonology Progress Note ---
Date of Service April 12, 2018 Assessment & Plan (1) COPD (chronic obstructive pulmonary disease): Impression: 1. Severe COPD, with exacerbation, gold level 3, home O2 dependent. 2. Nicotine addiction. 3. AAA, status post PEVAR. Plan: 1. I will change his steroids to 40 mg IV was. 2. Incentive spirometry. 3. Change Xanax to 0.25 at bedtime. 4. Oxygen and bronchodilators. 5. Hopefully the next 24 hours will be able to bridge him to prednisone 40 mg p.o. twice daily. 6. Oral intake. 7. DVT prophylaxis. 8. We will monitor in the ICU. 9. Discussed with Dr. Beck, appreciate his input. Thank you, will follow. Subjective The patient underwent PEVAR, has been doing well, no events during the procedure. Now he is sitting and eating his dinner. Denies any chest pain, no shortness of breath, anxious at baseline. Physical Exam 2 Vital Signs (Past 24 Hours): Last Vital Signs Temp 36.8 C 04/12/18 16:00 Pulse 90 04/12/18 18:01 Resp 23 04/12/18 18:01 BP 134/82 04/12/18 18:00 Pulse Ox 94 04/12/18 18:01 Physical Exam: Vital signs are stable, S1-S2 regular rate and rhythm, O2 saturation 94% on 3 L, scattered wheezing bilaterally, abdomen is benign, no edema, pedal pulses are faint but palpable. Neurologically he is anxious. No oral thrush or skin lesion. Results & Data Laboratory Results Labs were reviewed, leukocytosis was noted. BUN and creatinine 23 and 0.5. Diagnostic Findings No new imaging.
[2018-04-12] MEDS: methylPREDNISolone 40 MG in SYRINGE 0 ML IV SCH (18:38)
[2018-04-12] MEDS: ATORVASTATIN 40 MG TAB PO SCH (19:29)
[2018-04-12] MEDS: CETIRIZINE HCL 10 MG TABLET PO SCH (19:30)
[2018-04-12] MEDS: MONTELUKAST SODIUM 10 MG TABLET PO SCH (19:30)
[2018-04-12] MEDS ORDERED: ALPRAZolam 0.25 MG TABLET PO SCH (21:00)
[2018-04-13] MEDS: methylPREDNISolone 40 MG in SYRINGE 0 ML IV SCH ×2 (00:01→05:17)
[2018-04-13] MEDS: CEFAZOLIN 1000MG 1,000 MG/7.5 ML SYR IV SCH (02:15)
[2018-04-13] MEDS: D5W AND 1/2NSS 1,000 ML IV SCH (04:33)
[2018-04-13 04:57] LABS: Hematocrit (blood only) 33.5 % (42-52); Hemoglobin 10.6 g/dL (14.0-18.0); Immature Granulocytes # (auto) 0.03 K/uL (0.00-0.02); Immature Granulocytes % (auto) 0.2 %; Lymphocytes # (auto) 0.31 K/uL (1.2-3.4); Lymphocytes % (auto) 2.4 %; Mean Corpuscular Hgb Conc 31.6 g/dL (32-36); Mean Corpuscular Volume 97.1 fL (80-100); Mean Platelet Volume 9.5 fL (7.4-10.4); Monocytes # (auto) 0.52 K/uL (0.11-0.59); Neutrophils # (auto) 12.14 K/uL (1.4-6.5); Neutrophils % (auto) 93.4 %; Platelet Count 153 K/uL (130-400); RDW Coefficient of Variation 14.7 % (11.5-14.5); Red Blood Count 3.45 M/uL (4.7-6.1)
[2018-04-13 04:59] LABS: BUN Creatinine Ratio 42.7 (10-20); Calcium 8.1 mg/dl (8.5-10.1); Creatinine Clr Calc Pharmacy 104.2 ml/min; Est GFR (African American) 126.7; Est GFR (Non-African American) 109.4; Potassium 4.3 mmol/L (3.5-5.1)
[2018-04-13] MEDS: ALBUT/IPRATROP 3MG/0.5MG NEB 3 ML VIAL NEB SCH (07:08)
--- NOTE | 2018-04-13 08:30 | Surgery Progress Note ---
Date of Service April 13, 2018 Assessment & Plan (1) AAA (abdominal aortic aneurysm) without rupture: This is postoperative day 1 after endovascular repair of his abdominal aortic aneurysm. He is doing extremely well. We will transfer him to the floor today. He should be ready to be discharged tomorrow if cleared by medicine. I appreciated medicine could comment on a tapering dose for his steroids once discharged. (2) COPD (chronic obstructive pulmonary disease): He appears fairly stable from his COPD at this time on his steroid dose. Subjective Patient with no complaints. He denies any difficulty with his breathing other than his normal shortness of breath. Physical Exam 2 Vital Signs (Past 24 Hours): Last Vital Signs Temp 36.7 C 04/12/18 20:00 Pulse 87 04/13/18 07:10 Resp 18 04/13/18 07:10 BP 145/80 H 04/13/18 04:00 Pulse Ox 94 04/13/18 07:10 on exam he still has occasional wheezing both lung verma. Abdominal exam is benign. Groin puncture sites are soft without any significant hematomas. He has good distal flow in both lower extremities.
[2018-04-13] MEDS ORDERED: SODIUM CHLORIDE 0.65% NA SOLN 45 ML (OCEAN) ONE (08:38)
[2018-04-13] MEDS: ALPRAZolam 0.25 MG TABLET PO SCH ×3 (08:47→21:44)
[2018-04-13] MEDS: guaiFENesin 600 MG TABCR PO SCH ×2 (08:48→19:25)
[2018-04-13] MEDS: PANTOprazole 40 MG TAB PO SCH (08:48)
[2018-04-13] MEDS: ASPIRIN 81 MG ECTAB PO SCH (08:48)
[2018-04-13] MEDS: PARoxetine HCl 20 MG TAB PO SCH (08:48)
[2018-04-13] MEDS: FLUTICASONE/SALMETEROL (ADVAIR) 500/50 INH 14 PUFF INH SCH ×2 (08:48→19:22)
[2018-04-13] MEDS: TIOTROPIUM BROMIDE 5 PUFF/90 MCG INH INH SCH (08:49)
--- NOTE | 2018-04-13 13:32 | Pulmonology Progress Note ---
Date of Service April 13, 2018 Assessment & Plan (1) COPD (chronic obstructive pulmonary disease): Impression: 1. Severe COPD, with exacerbation, gold level 3, home O2 dependent. 2. Nicotine addiction. 3. AAA, status post PEVAR. Plan: 1. I will change his steroids prednisone 40 mg p.o. twice daily. 2. Incentive spirometry. 3. Change Xanax to 0.25 milligrams 3 times daily. He seems to tolerate very well and his anxiety is better controlled. 4. Oxygen and bronchodilators. 5. Transfer to regular floor, appreciate Dr. Beck acceptance. 6. Oral intake. 7. DVT prophylaxis. 8. Smoking cessation counseling. 9. He needs to follow-up with pulmonary as an outpatient. 10. Discussed with the staff on rounds and details. 11. Agree with disposition plan to home in the morning. Thank you, will follow as needed. Subjective The patient has been improving from respiratory standpoint, he is feeling better , he responded very well to Xanax overnight, no events overnight. Physical Exam 2 Vital Signs (Past 24 Hours): Last Vital Signs Temp 36.6 C 04/13/18 08:01 Pulse 90 04/13/18 13:12 Resp 27 H 04/13/18 10:00 BP 139/77 04/13/18 10:00 Pulse Ox 91 04/13/18 10:00 Physical Exam: Vital signs are stable, 91% on 4 L, no JVP, S1-S2 regular rate and rhythm, no wheezing to my exam, abdomen is benign, no edema, pedal pulses are positive. Neurologically he is anxious, no oral thrush. No skin rash. Results & Data Laboratory Results Labs were reviewed which showed leukocytosis secondary to steroids, the rest of his labs are within acceptable limits. Including BUN and creatinine. Glucose is controlled. Diagnostic Findings No new imaging.
[2018-04-13] MEDS: ALBUTEROL 0.5% NEB SOLN 2.5 MG/0.5 ML VIAL NEB SCH ×2 (14:04→20:21)
[2018-04-13] MEDS: predniSONE 20 MG TAB PO SCH (19:26)
[2018-04-13] MEDS: ATORVASTATIN 40 MG TAB PO SCH (19:26)
[2018-04-13] MEDS: CETIRIZINE HCL 10 MG TABLET PO SCH (19:26)
[2018-04-13] MEDS: MONTELUKAST SODIUM 10 MG TABLET PO SCH (19:27)
[2018-04-14] MEDS: ALBUTEROL 0.5% NEB SOLN 2.5 MG/0.5 ML VIAL NEB SCH ×2 (02:19→07:05)
[2018-04-14] MEDS: ALPRAZolam 0.25 MG TABLET PO SCH (06:03)
[2018-04-14] MEDS: PANTOprazole 40 MG TAB PO SCH (08:03)
[2018-04-14] MEDS: FLUTICASONE/SALMETEROL (ADVAIR) 500/50 INH 14 PUFF INH SCH (08:03)
[2018-04-14] MEDS: PARoxetine HCl 20 MG TAB PO SCH (08:03)
[2018-04-14] MEDS: predniSONE 20 MG TAB PO SCH (08:03)
[2018-04-14] MEDS: guaiFENesin 600 MG TABCR PO SCH (08:04)
[2018-04-14] MEDS: TIOTROPIUM BROMIDE 5 PUFF/90 MCG INH INH SCH (08:04)
[2018-04-14] MEDS: ASPIRIN 81 MG ECTAB PO SCH (08:04)
--- NOTE | 2018-04-14 08:48 | Surgery Progress Note ---
Date of Service April 14, 2018 Assessment & Plan (1) AAA (abdominal aortic aneurysm) without rupture: Doing well. D/C today (2) COPD (chronic obstructive pulmonary disease): He appears fairly stable from his COPD. Subjective Patient with no complaints. He denies any difficulty with his breathing other than his normal shortness of breath. Physical Exam 2 Vital Signs (Past 24 Hours): Last Vital Signs Temp 36.5 C 04/14/18 06:53 Pulse 75 04/14/18 07:00 Resp 16 04/14/18 07:00 BP 131/81 04/14/18 06:53 Pulse Ox 96 04/14/18 07:00 Patient is awake oriented x3. He is in no acute distress. Puncture sites are healed nicely. He is got good distal flow in both lower extremities.Patient is awake oriented x3. He is in no acute distress. Puncture sites are healed nicely. He is got good distal flow in both lower extremities.
--- NOTE | 2018-04-16 09:14 | Discharge Summary ---
Date of Service April 16, 2018 Admission HPI Per Admitting Provider We had the pleasure of seeing Mr. Jose Enrique Morataya today in the [facility] Surgery [facility] for followup regarding his abdominal aortic aneurysm. As you recall, he is a very pleasant 67-year-old male, whom we have been following for a known abdominal aortic aneurysm. We last saw him in clinic on January 21, 2018 for continued surveillance, at that time, he underwent an ultrasound, which demonstrated his aneurysm to be 5.1 x 5.3 cm. This was slightly increased from his previous ultrasound 6 months ago, at which time it measured 5.0 x 5.0 cm. We requested the patient undergo CTA of abdomen and pelvis for better delineation of his aneurysm and for surgical planning. The patient underwent a CTA, which demonstrated the aneurysm to be 5.3 cm in greatest dimension. On interview today, he is here to discuss surgical intervention. He has no new complaints at this time. Continues to require 4 L of oxygen around the clock for his severe COPD, however, has not had any further deterioration in his health. He does admit to having exertional dyspnea, however, that has been unchanged. Recommended pt undergo PEVAR d/t risk of rupture, and was was agreeable. Upon arrival to [facility] for surgery, however, pt was noted to be hypoxic with Oxygen sats in the 60% range, while lying on operating table, so procedure was postponed pending medical optimization and rescheduled for a few days later. Pt admitted for medical optimization of his severe COPD. Admission Exam Per Admitting Provider Vital signs prior to examination are as follows; blood pressure 96/60, heart rate 95, saturating 88% on 4 L. Pain is 0/10. In general, the patient is a thin, chronically ill-appearing gentleman, in no acute distress, sitting comfortably on examination table. Head is normocephalic and atraumatic. Mucous membranes are moist. Neck is supple and trachea is midline. Pupils are equal and round. Lungs are clear to auscultation bilaterally. Heart rate is regular with a regular rhythm. Pulses are 2+ in radials bilaterally. Abdomen is soft, nontender. Pulsatile mass palpable, approx 5-6 cm. Femoral pulses +3 , distal pulses nonpalpable. Neuro exam reveals no focal deficits. Principal Diagnosis 1. s/p Percutaneous Endovascular Aneurysm Repair (PEVAR) 2. AAA 3. Severe COPD Discharge Exam Constitutional WD/WN, vitals as above well developed, + ill appearing (chronically) and + thin; not in distress Eyes PERRL, conjunctivae normal, anicteric sclerae Respiratory + uses accessory muscles and + prolonged expiratory phase Auscultation: + diminished lung sounds and + wheezes (coarse breath sounds) Cardiovascular RRR, no murmur, no edema Gastrointestinal (Abdomen) normal bowel sounds, soft, nontender, no hepatosplenomegaly Musculoskeletal no cyanosis or clubbing, extremities motor strength 5/5 (BL femoral punctures C/ D/I, mild local tenderness and edema, no large hematoma noted. ) Neurologic awake; no focal motor deficits and not confused Psychiatric A+Ox3, euthymic affect Discharge Data Allergies Allergy/AdvReac Type Severity Reaction Status Date / Time house dust mite AdvReac Unknown Sneezing Verified 04/09/18 08:20 methadone AdvReac Unknown Anxiety Verified 04/09/18 08:19 propoxyphene AdvReac Unknown hallucinati Verified 04/09/18 08:19 on ragweed pollen AdvReac Unknown Sneezing Verified 04/09/18 08:20 Consultations 04/09/18 14:42 Consult Hospitalist Routine Consult Pulmonology Routine 04/12/18 14:20 Consult Fur Finisher Routine Procedures Performed Operation Date: 04/09/18 10:20 Actual Procedures p Percutaneous Endovascular Aneurysm Repair - Evan Beck MD Operation Date: 04/12/18 10:40 Actual Procedures p Percutaneous Endovascular Aneurysm Repair, Mechanical Closure Bilateral Femoral Arteries(Bilateral) - Evan Beck MD Ordered Studies 04/09/18 07:32 US guide vascular access Routine 04/12/18 09:45 EV AAA repair aorta only Routine US guide vascular access Routine Hospital Course (1) AAA (abdominal aortic aneurysm) without rupture: Doing well post op from uneventful PEVAR. D/C today, POD # 2 (2) COPD (chronic obstructive pulmonary disease): He appears fairly stable from his COPD, oxygenating well on routine 4L O2. Total Time Total Time Spent Total Time Spent (In Minutes): 20 minutes Total Time Includes: Examination of the Patient, Discharge Planning and Medication Reconciliation Discharge Plan Discharge Items Patient Disposition: Home - Self-Care Reason For Visit: Abdominal Aortic Aneurysm Discharge Diagnosis: Abdominal aortic aneurysm Discharge Goals: Therapeutic intervention Activity: Per 'Additional Instructions' section Non-emergency contact: Surgeon Call non-emergency contact if: you have any medication questions, your symptoms worsen, your pain is not controlled, your pain is worsening, your pain is unusual for you, your pain is concerning for you, your temperature is above 101.5, your wound has increased redness, your wound has increased drainage and your wound pain has increased Follow-up/Referrals: Lachelle Wong MD [Primary Care Provider] - Diet: Heart Healthy Addtl Provider Instructions: For your COPD exacerbation, please take the steroid taper as follows: 40mg (4 tablets) x 3 days, then 30mg (3 tablets) x 3 days, then 20mg (2 tablets) x 3 days, then 10mg (1 tablet) x 3 days. The prescription has been sent to [facility] in [place]. Please follow up with your PCP and supervisor paste mixing for follow up of your COPD. SPECIAL CARE INSTRUCTIONS: Medications: * Continue to take your medications as directed. Incision/Puncture Site Care: * You will have an incision or puncture in each of your groins. Liquid glue will be used to seal your incisions/puncture site. This will lift off as the incisions/puncture sites heal. * If Liquid glue is not used, there will be small dressings covering your incisions. After you get home, you may remove the dressings and shower - allowing the warm soapy water to run over it. * Be sure to dry the sites well and keep them dry. * DO NOT SOAK IN A TUB/POOL/etc. UNTIL ALL SURGICAL SITES ARE HEALED. DO NOT REMOVE THE GLUE UNTIL THE INCISIONS HEAL. Restrictions: * Limit yourself to solar systems designer activity for the first week. * You may walk and go up and down steps. * Avoid excessive bending or movement at the level of the incisions or punctures. Risks and Possible Complications: * Infection/Drainage/Bleeding - Drainage or bleeding from the incisions/ puncture site should be minimal. If you have excessive bleeding or drainage, call our office ([phone]) right away. * Pain/Numbness - You may experience some mild pain or soreness at your incision sites. You may also have some numbness around the incisions or into the insides of your thighs. Bruising is normal and should resolve within 2 weeks. * Changes in Appetite or Bowel Habits - Mostly related to anesthesia and pain medication, some patients have reported decreased appetite and/or problems with constipation. These symptoms usually improve over a few weeks. Remembering to take an [id number] stool softener, as directed, will help you to avoid constipation. Call our office and seek emergent treatment if you develop: * Fever or chills * Have a temperature greater than 101 degrees F * Any redness or purulent drainage from your incisions or punctures * Severe abdominal, chest or back pain SKIN IRRITATION: * You may experience some redness and/or swelling in the area where radiation was administered. If any skin irritation occurs, please contact your family physician. You will be receiving a call from the Vascular Surgery Nurse after you are discharged. FOLLOW UP VISIT: It is important for you to keep your follow up appointments with your medical provider. Keep any scheduled doctor appointments. Call [phone] to schedule a follow up appointment if one not already scheduled. Prescriptions: New prednisone 10 mg tablet 40 mg PO DAILY Qty: 30 RF: 0 Continue aspirin [Aspir-81] 81 mg Tablet,Delayed Release (Dr/Ec) 81 mg PO QAM RF: 0 alprazolam [Xanax] 0.25 mg Tablet 0.25 mg PO Q8H PRN (Reason: Anxiety) RF: 0 albuterol sulfate 90 mcg/actuation Hfa Aerosol Inhaler 2 puff INHALATION Q6H PRN (Reason: Wheezing) RF: 0 esomeprazole magnesium [Nexium] 40 mg Capsule,Delayed Release(Dr/Ec) 40 mg PO QAM RF: 0 mupirocin 2 % Ointment 1 applic TOPICAL TID PRN (Reason: Dry Skin) RF: 0 pseudoephedrine-guaifenesin [Mucinex D] 60-600 mg Tablet Extended Release 12 Hr 1 tab PO BID RF: 0 paroxetine HCl 40 mg Tablet 40 mg PO QAM RF: 0 tiotropium bromide [Spiriva with HandiHaler] 18 mcg Capsule, W/Inhalation Device 1 cap INHALATION QAM RF: 0 montelukast [Singulair] 10 mg Tablet 10 mg PO HS RF: 0 ipratropium-albuterol [Combivent Respimat] 20-100 mcg/actuation Mist 1 puff INHALATION QID RF: 0 fluticasone-salmeterol [Advair Diskus] 500-50 mcg/dose Blister With Device 1 inh INHALATION BID RF: 0 atorvastatin 40 mg Tablet 40 mg PO HS RF: 0 cetirizine 10 mg Tablet,Disintegrating 10 mg PO HS RF: 0 arformoterol [Brovana] 15 mcg/2 mL Solution For Nebulization 15 mcg INHALATION QID PRN (Reason: Shortness Of Breath Or Wheezing) RF: 0 Stand-Alone Forms: [facility] Discharge Orders: Discharge Order (Routine); Ordered 04/14/18 Ordered By: Evan Beck Admission Data Admit Date/Time: 04/09/18 14:30 Attending Provider: Evan Beck Admit Provider: Evan Beck Primary Care Provider: Lachelle Wong Other Providers: Bradly Saez ; Orlando Hernández ; Gertrudis Stover ; Mirella Black ; Bobbi Vicente ; Arnaud Meneses ; George Zepeda ; Izaiah King ; Elyse Banuelos ; Rolan Vela ; Georgia Lebron ; Parmjit Godfrey ; Glenn Cavanaugh ; Tristen Parnell ; Sam Slaughter ; Roland Sharpe ; Katerin Nolan ; Cee Singleton ; Trisha Toth ; Gustavo Cardenas ; Kaitlyn Painting ; Forrest Benton. ; Andrea Feliz ; Kimmy Ovalle ; Melita Maynard ; Zora Nuno ; Lexi Flowers ; Simon Crespo ; Moriah Xie ; Leila Elizabeth ; Nasir Edmond ; Sean Freeman ; Tavares Partida ; Yoli Berman ; Georgia Eubanks ; Oskar Chin ; Mariam Haines ; Era Perez ; Zeus Bacon ; Antwan Díaz ; Joseph Espitia ; Carol Sung ; Kim Conn Service: Telemetry Other Interventions: Discharge Summary Assessment (RN) Last Done: 04/14/18 09:25 DC Date/Time DO NOT enter until pt leaves facility: 04/14/18 11:39
== END 2018-04-14 11:39 | disposition home or self-care (01) | DRG 269 ==
LOC: ASU 07:55 → 2S 14:30 → 1E 04-12 13:56 → 2E 04-13 12:54
DX: Z68.1 Body mass index [BMI] 19.9 or less, adult; I71.4 Abdominal aortic aneurysm, without rupture; K21.9 Gastro-esophageal reflux disease without esophagitis; G47.30 Sleep apnea, unspecified; Z79.82 Long term (current) use of aspirin; R64 Cachexia; Z83.3 Family history of diabetes mellitus; Z88.8 Allergy status to other drugs, medicaments and biological substances; Z99.81 Dependence on supplemental oxygen; F41.9 Anxiety disorder, unspecified; E44.0 Moderate protein-calorie malnutrition; K27.9 Peptic ulcer, site unspecified, unspecified as acute or chronic, without hemorrhage or perforation; Z87.891 Personal history of nicotine dependence; E78.5 Hyperlipidemia, unspecified; J44.1 Chronic obstructive pulmonary disease with (acute) exacerbation; J96.11 Chronic respiratory failure with hypoxia

== ENCOUNTER 2018-10-16 00:38 | Inpatient (IN) ==
[2018-10-16] MEDS ORDERED: MAGNESIUM SULFATE / D5W 1 GM/100 ML BAG IV ONE (00:58)
[2018-10-16] MEDS ORDERED: ALBUT/IPRATROP 3MG/0.5MG NEB 3 ML VIAL NEB ONE ×2 (00:58→03:41)
[2018-10-16] MEDS ORDERED: methylPREDNISolone 125 MG in SYRINGE 0 ML IV STA (00:58)
[2018-10-16] MEDS ORDERED: methylPREDNISolone 125 MG/2 ML VIAL ONE (01:14)
[2018-10-16 01:24] LABS: Basophils # (auto) 0.03 K/uL (0-0.2); Basophils % (auto) 0.4 %; Eosinophils # (auto) 0.03 K/uL (0-0.5); Eosinophils % (auto) 0.4 %; Hematocrit (blood only) 42.4 % (42-52); Hemoglobin 12.9 g/dL (14.0-18.0); Immature Granulocytes # (auto) 0.01 K/uL (0.00-0.02); Immature Granulocytes % (auto) 0.1 %; Lymphocytes % (auto) 9.7 %; Mean Corpuscular Hemoglobin 30.5 pg (25-34); Mean Corpuscular Hgb Conc 30.4 g/dL (32-36); Mean Corpuscular Volume 100.2 fL (80-100); Mean Platelet Volume 9.8 fL (7.4-10.4); Monocytes # (auto) 0.33 K/uL (0.11-0.59); Neutrophils # (auto) 7.07 K/uL (1.4-6.5); Neutrophils % (auto) 85.4 %; Platelet Count 176 K/uL (130-400); RDW Coefficient of Variation 14.2 % (11.5-14.5); RDW Standard Deviation 52.6 fL (36.4-46.3); Red Blood Count 4.23 M/uL (4.7-6.1); White Blood Count 8.27 K/uL (4.8-10.8)
[2018-10-16 01:50] LABS: Alanine Aminotransferase 33 U/L (12-78); Albumin Level 3.8 gm/dl (3.4-5.0); Aspartate Aminotransferase 35 U/L (15-37); BUN Creatinine Ratio 26.4 (10-20); Blood Urea Nitrogen 22 mg/dl (7-18); Calcium 9.2 mg/dl (8.5-10.1); Carbon Dioxide 39 mmol/L (21-32); Chloride 99 mmol/L (98-107); Est GFR (Non-African American) 91.4; Glucose 119 mg/dl (70-99); Lipase 117 U/L (73-393); Magnesium 2.3 mg/dl (1.8-2.4); Potassium 4.4 mmol/L (3.5-5.1); Sodium 143 mmol/L (136-145)
[2018-10-16 01:53] LABS: Albumin Globulin Ratio 0.9 (0.9-2); Alkaline Phosphatase 80 U/L (45-117); Bilirubin,Total 0.3 mg/dl (0.2-1); Globulin 4.4 gm/dl (2.5-4.0); NT Pro B Type Natriuretic Pept 224 pg/ml (0-900); Total Protein 8.2 gm/dl (6.4-8.2); Troponin I < 0.015 ng/ml (0-0.045)
[2018-10-16] MEDS ORDERED: CEFEPIME 2,000 MG/20 ML VIAL IV STA (02:44)
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
[2018-10-16] MEDS ORDERED: ACETAMINOPHEN 325 MG TAB PO PRN (06:06)
[2018-10-16] MEDS ORDERED: AZITHROMYCIN 500 MG in DEXTROSE 5% 250 ML IV ONE (06:15)
[2018-10-16] MEDS ORDERED: MUPIROCIN 2% OINT 22 GM TUBE EXT PRN (06:15)
--- NOTE | 2018-10-16 06:21 | XRay Report ---
XR chest 1V portable CLINICAL HISTORY: sob dyspnea COMPARISON STUDY: 04/09/2018 FINDINGS: Diffuse emphysematous change. Chronic pleural and parenchymal changes in both lung bases. N o focal infiltrate. No cardiac enlargement. IMPRESSION: Emphysematous change. No acute process. The above report was generated using voice recognition software. It may contain grammatical, syntax or spelling errors. Electronically signed by: Miguel Auguste M.D. 10/16/2018 6:19 AM
[2018-10-16] MEDS: methylPREDNISolone 60 MG in SYRINGE 0 ML IV SCH ×3 (06:53→23:05)
[2018-10-16] MEDS: ALBUT/IPRATROP 3MG/0.5MG NEB 3 ML VIAL NEB SCH ×3 (07:00→15:40)
[2018-10-16 07:19] LABS: INR 1.1 (0.9-1.1); Prothrombin Time 10.9 Seconds (9.0-12.0)
[2018-10-16] MEDS: FLUTICASONE/SALMETEROL (ADVAIR) 500/50 INH 14 PUFF INH SCH ×2 (07:55→20:13)
[2018-10-16] MEDS: PANTOprazole 40 MG TAB PO SCH (07:59)
[2018-10-16] MEDS: ASPIRIN 81 MG ECTAB PO SCH (07:59)
[2018-10-16] MEDS: PARoxetine HCl 10 MG TAB PO SCH (07:59)
[2018-10-16] MEDS: ENOXAPARIN INJ 40 MG/0.4 ML SYR SQ SCH (08:02)
--- NOTE | 2018-10-16 10:54 | Family Medicine Progress Note ---
Date of Service October 16, 2018 Assessment & Plan (1) COPD exacerbation: 67-year-old male with history of end-stage COPD, chronically on 3 L O2, DEVEN on cpap (non-compliant), HLD, AAA status post PEVAR in March 2018, bilateral carotid stenosis (R ICA 50 to 69% stenosis, LICA less than 30% status post endarterectomy), tobacco use, PUD and anxiety who presented with worsening dyspnea x2 days. Currently being treated for a an acute COPD exacerbation. COPD exacerbation -Chest x-ray: Severe emphysema -Received mag sulfate, methylpred 125 mg, 1 hour DuoNeb x2, cefepime in the ED -continue azithromycin, Solumedrol 60mg q8h, scheduled duonebs q4h -continue home Advair, singulair Chronic respiratory failure -continue supplemental O2, and wean as tolerated. Baseline of 3 L at home. Hyperlipidemia/atherosclerosis Continue home aspirin and atorvastatin PUD Continue home PPI Anxiety Continue home alprazolam as needed and paroxetine Anemia Hemoglobin stable No concern for acute GI bleed FEN/GI: Heart healthy diet DVT prophylaxis: Lovenox 40 mg subcu daily Code: Full Disposition: Discharge pending improvement to baseline (2) COPD (chronic obstructive pulmonary disease): (3) Tobacco use disorder: (4) PUD (peptic ulcer disease): (5) Anxiety: (6) AAA (abdominal aortic aneurysm) without rupture: (7) Carotid stenosis, right: Supervising Physician Co-Signing Physician Notes Resident Physician Supervision Note: I independently interviewed and examined the patient and verified the mitchell history and physical, reviewed labs and image studies, discussed the case with the resident Dr. Bhat and agree with the findings and care plan. Subjective Mr. Morataya states he's doing much better but still not back to his baseline. Was resting in bed comfortably. Denies TODD, SOB currently, chest pain, palps, diarrhea or constipation. Review of Systems Review of Systems: All systems reviewed & are unremarkable except as noted in HPI & below Physical Exam Physical Exam: General: Alert, oriented. Nasal Cannula in nares HEENT: NC/AT, PERRLA, EOMI, oropharynx moist. Chest: Nontender to palpation. CV: RRR, Normal s1, s2. No murmurs appreciated Resp: Expiratory wheezes present bilaterally, some abd increased effort of breathing. Abdomen: Soft, nontender, nondistended. Extremities: No edema in lower extremities bilaterally. Results & Data Vital Signs (Past 12 Hours) Vital Signs Temp Pulse Pulse Resp BP BP Pulse Ox 10/16/18 07:00 106 H 22 94 10/16/18 05:45 37.2 C 99 H 30 H 129/65 92 10/16/18 05:17 97 H 24 136/70 97 10/16/18 04:30 92 H 24 132/79 95 10/16/18 04:04 87 18 93 10/16/18 04:01 89 26 H 139/75 90 10/16/18 03:31 89 17 92 10/16/18 03:30 88 17 161/86 H 94 10/16/18 03:00 91 H 20 135/87 99 10/16/18 02:30 86 22 128/69 100 10/16/18 02:00 85 20 140/79 100 10/16/18 01:30 83 23 149/80 H 97 10/16/18 01:28 91 H 24 100 10/16/18 00:57 108/84 10/16/18 00:44 36.3 C L 91 H 28 H 94 Laboratory Results Laboratory Results - last 24 hr 10/16/18 10/16/18 10/16/18 01:16 01:16 06:39 WBC 8.27 RBC 4.23 L Hgb 12.9 L Hct 42.4 MCV 100.2 H MCH 30.5 MCHC 30.4 L RDW Std Deviation 52.6 H RDW Coeff of Cherrie 14.2 Plt Count 176 MPV 9.8 Immature Gran % (Auto) 0.1 Neut % (Auto) 85.4 Lymph % (Auto) 9.7 [place] % (Auto) 4.0 Eos % (Auto) 0.4 Baso % (Auto) 0.4 Immature Gran # (Auto) 0.01 Neut # (Auto) 7.07 H Lymph # (Auto) 0.80 L [place] # (Auto) 0.33 Eos # (Auto) 0.03 Baso # (Auto) 0.03 PT 10.9 INR 1.1 Sodium 143 Potassium 4.4 Chloride 99 Carbon Dioxide 39 H Anion Gap 5.0 BUN 22 H Creatinine 0.85 Est Cr Clr Drug Dosing 70.0 Est GFR ( Amer) 106.0 Est GFR (Non-Af Amer) 91.4 BUN/Creatinine Ratio 26.4 H Glucose 119 H Calcium 9.2 Magnesium 2.3 Total Bilirubin 0.3 AST 35 ALT 33 Alkaline Phosphatase 80 Troponin I < 0.015 NT-Pro-B Natriuret Pep 224 Total Protein 8.2 Albumin 3.8 Globulin 4.4 H Albumin/Globulin Ratio 0.9 Lipase 117 Medications Administered Home Medications Combivent Respimat 1 puff INHALATION QID 02/14/18 [History Confirmed 10/16/18] Spiriva with HandiHaler 1 cap INHALATION QAM 02/14/18 [History Confirmed 10/16/18] albuterol sulfate 2 puff INHALATION Q6H PRN 02/14/18 [History Confirmed 10/16/18] aspirin [Aspir-81] 81 mg PO QAM 02/14/18 [History Confirmed 10/16/18] atorvastatin 40 mg PO HS 02/14/18 [History Confirmed 10/16/18] cetirizine 10 mg PO HS 02/14/18 [History Confirmed 10/16/18] esomeprazole magnesium [Nexium] 40 mg PO QAM 02/14/18 [History Confirmed 10/16/18] fluticasone propion-salmeterol [Advair Diskus] 1 inh INHALATION BID 02/14/18 [History Confirmed 10/16/18] mupirocin 1 applic TOPICAL TID PRN 02/14/18 [History Confirmed 10/16/18] pseudoephedrine-guaifenesin [Mucinex D] 1 tab PO BID 02/14/18 [History Confirmed 10/16/18] Brovana 15 mcg INHALATION QID PRN 04/09/18 [History Confirmed 10/16/18] alprazolam 0.5 mg tablet 0.5 mg PO TID PRN #90 tab 08/14/18 [Rx Confirmed 10/16/18] paroxetine 30 mg tablet 30 mg PO DAILY #90 tab 08/14/18 [Rx Confirmed 10/16/18] montelukast 10 mg tablet 10 mg PO HS #30 tab 10/10/18 [Rx Confirmed 10/16/18] Active Medications Acetaminophen (Tylenol) 650 mg PO Q4H PRN PRN Reason: pain/fever Stop: 11/15/18 06:05 Albuterol (Duoneb) 3 ml NEB Q4R [facility] Stop: 11/15/18 06:59 Last Admin: 10/16/18 11:07 Dose: 3 ml Documented by: Alprazolam (Xanax) 0.5 mg PO TID PRN PRN Reason: Anxiety Stop: 11/15/18 06:05 Aspirin (Ecotrin Ectab) 81 mg PO QAM [facility] Stop: 11/15/18 08:59 Last Admin: 10/16/18 07:59 Dose: 81 mg Documented by: Atorvastatin Calcium (Lipitor) 40 mg PO HS [facility] Stop: 11/15/18 20:59 Cetirizine HCl (Zyrtec) 10 mg PO HS [facility] Stop: 11/15/18 20:59 Enoxaparin Sodium (Lovenox) 40 mg SQ Q24H [facility] Stop: 11/15/18 08:59 Last Admin: 10/16/18 08:02 Dose: 40 mg Documented by: Azithromycin 250 mg/ Dextrose 252.5 mls @ 125 mls/hr IV DAILY@0700 [facility] Stop: 10/24/18 06:59 Methylprednisolone 60 mg/ (Syringe) 0.96 mls @ 1.5 mls/min IV Q8H [facility] Stop: 11/15/18 06:59 Last Admin: 10/16/18 06:53 Dose: 1.5 mls/min Documented by: Miscellaneous (Order Awaiting Action) 1 ea N/A QS [facility] Stop: 11/15/18 07:59 Last Admin: 10/16/18 07:55 Dose: Not Given Documented by: Montelukast Sodium (Singulair) 10 mg PO [facility] Stop: 11/15/18 20:59 Mupirocin (Bactroban 2%) 1 appln EXT TID PRN PRN Reason: DRY SKIN Stop: 11/15/18 06:14 Pantoprazole Sodium (Protonix) 40 mg PO QAM [facility]; Protocol Stop: 11/15/18 08:59 Last Admin: 10/16/18 07:59 Dose: 40 mg Documented by: Paroxetine HCl (Paroxetine Hcl) 30 mg PO DAILY [facility] Stop: 11/15/18 08:59 Last Admin: 10/16/18 07:59 Dose: 30 mg Documented by: Fluticasone/Salmeterol (Advair Diskus 500/50) 1 puffs INH BID [facility] Stop: 11/15/18 08:59 Last Admin: 10/16/18 07:55 Dose: 1 puffs Documented by: PG Care Time/CCT Total # of Minutes Spent Total Time Spent with Patient: Total time spent is greater than 50% in coordination of care (as documented) at patient's floor/unit and/or counseling patient: Resident Activity Tracking Resident Involvement: Resident Care Provided Care Provided: Adult Hospital Medicine
[2018-10-16] MEDS ORDERED: guaiFENesin 600 MG TABCR PO PRN (15:58)
[2018-10-16] MEDS: IPRATROPIUM BROMIDE/ALBUTEROL respimat INH INH SCH ×2 (18:07→20:14)
[2018-10-16] MEDS ORDERED: ALBUT/IPRATROP 3MG/0.5MG NEB 3 ML VIAL NEB PRN (19:14)
[2018-10-16] MEDS: ATORVASTATIN 40 MG TAB PO SCH (20:13)
[2018-10-16] MEDS: MONTELUKAST SODIUM 10 MG TABLET PO SCH (20:13)
[2018-10-16] MEDS: CETIRIZINE HCL 10 MG TABLET PO SCH (20:14)
[2018-10-16] MEDS: ALPRAZolam 0.5 MG TABLET PO PRN (20:19)
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
[2018-10-17] MEDS: ALPRAZolam 0.5 MG TABLET PO PRN ×2 (05:05→20:50)
[2018-10-17] MEDS: methylPREDNISolone 60 MG in SYRINGE 0 ML IV SCH ×3 (06:28→23:00)
[2018-10-17] MEDS: AZITHROMYCIN 250 MG in DEXTROSE 5% 250 ML IV SCH (06:30)
[2018-10-17 07:03] LABS: BUN Creatinine Ratio 41.1 (10-20); Calcium 8.3 mg/dl (8.5-10.1); Creatinine Clr Calc Pharmacy 100.3 ml/min; Est GFR (African American) 125.8; Est GFR (Non-African American) 108.5; Potassium 4.5 mmol/L (3.5-5.1)
[2018-10-17] MEDS: IPRATROPIUM BROMIDE/ALBUTEROL respimat INH INH SCH ×4 (07:42→20:46)
[2018-10-17] MEDS: ASPIRIN 81 MG ECTAB PO SCH (07:42)
[2018-10-17] MEDS: FLUTICASONE/SALMETEROL (ADVAIR) 500/50 INH 14 PUFF INH SCH ×2 (07:42→20:46)
[2018-10-17] MEDS: ENOXAPARIN INJ 40 MG/0.4 ML SYR SQ SCH (07:43)
[2018-10-17] MEDS: PANTOprazole 40 MG TAB PO SCH (07:43)
[2018-10-17] MEDS: PARoxetine HCl 10 MG TAB PO SCH (07:43)
[2018-10-17 08:50] LABS: Base Excess ABG 12.2 mEq/L (-9-1.8); HCO3 ABG 41 mmol/L (19-24); PCO2 ABG 76 mmHg (35-46); PO2 ABG 90 mm/Hg (80-95); pH ABG 7.35 (7.35-7.45)
[2018-10-17 08:53] LABS: Allen Test Pos (Pos)
--- NOTE | 2018-10-17 10:39 | Family Medicine Progress Note ---
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 Currently being treated for an acute COPD exacerbation. Acute on chronic hypoxic/hypercapneic resp failure -ABG with CO2 retention -placed on bipap with improvement in symptoms. -on home O2 - 3L Metabolic Encephalopathy -mentation declined overnight; POC CO2 elevated -improved after placing on bipap COPD exacerbation -Chest x-ray: Severe emphysema -continue azithromycin, Solumedrol 60mg q8h, scheduled duonebs q4h -continue home Advair, singulair -continue to monitor Hyperlipidemia/atherosclerosis Continue home aspirin and atorvastatin PUD Continue home PPI Anxiety Continue home alprazolam as needed and paroxetine Anemia Hemoglobin stable No concern for acute GI bleed FEN/GI: Heart healthy diet DVT prophylaxis: Lovenox 40 mg subcu daily Code: Full Disposition: Discharge pending improvement to baseline Supervising Physician Co-Signing Physician Notes Resident Physician Supervision Note: I independently interviewed and examined the patient and verified the mitchell history and physical, reviewed labs and image studies, discussed the case with the resident Dr. Bhat and agree with the findings and care plan. Subjective Mr. Morataya was AAOx2. Had increased CO2 retention this AM and per nursing was a bit confused. Currently denies TODD, blurry vision, sore throat, cough, runny nose, chest pain, SOB, palps, diarrhea, constipation. Review of Systems Review of Systems: All systems reviewed & are unremarkable except as noted in HPI & below Physical Exam Physical Exam: General: Alert, orientedx1. HEENT: NC/AT, PERRLA, EOMI, oropharynx moist. Chest: Nontender to palpation. CV: RRR, Normal s1, s2. No murmurs appreciated Resp: Expiratory wheezes present bilaterally, some abd increased effort of breathing. Abdomen: Soft, nontender, nondistended. Extremities: No edema in lower extremities bilaterally. Results & Data Vital Signs (Past 12 Hours) Vital Signs Temp Pulse Resp BP Pulse Ox 08/29/19 08:05 36.8 C 80 20 133/72 93 10/16/18 23:20 36.8 C 98 H 18 156/77 H 95 Laboratory Results Laboratory Results - last 24 hr 10/17/18 10/17/18 10/17/18 06:10 08:18 08:40 ABG pH Cancelled 7.35 ABG pCO2 Cancelled 76 H ABG pO2 Cancelled 90 ABG HCO3 Cancelled 41 H ABG O2 Saturation Cancelled 96.0 H ABG Base Excess Cancelled 12.2 H [place] Test Cancelled Pos Barometric Pressure Cancelled 732.1 Oxygen Given Cancelled 6L Sodium 135 L D Potassium 4.5 Chloride 91 L Carbon Dioxide 40 H Anion Gap 4.0 BUN 23 H Creatinine 0.56 L Est Cr Clr Drug Dosing 100.3 Est GFR ( Amer) 125.8 Est GFR (Non-Af Amer) 108.5 BUN/Creatinine Ratio 41.1 H Glucose 118 H Calcium 8.3 L Medications Administered Home Medications Combivent Respimat 1 puff INHALATION QID 02/14/18 [History Confirmed 10/16/18] Spiriva with HandiHaler 1 cap INHALATION QAM 02/14/18 [History Confirmed 10/16/18] albuterol sulfate 2 puff INHALATION Q6H PRN 02/14/18 [History Confirmed 10/16/18] aspirin [Aspir-81] 81 mg PO QAM 02/14/18 [History Confirmed 10/16/18] atorvastatin 40 mg PO HS 02/14/18 [History Confirmed 10/16/18] cetirizine 10 mg PO HS 02/14/18 [History Confirmed 10/16/18] esomeprazole magnesium [Nexium] 40 mg PO QAM 02/14/18 [History Confirmed 10/16/18] fluticasone propion-salmeterol [Advair Diskus] 1 inh INHALATION BID 02/14/18 [History Confirmed 10/16/18] mupirocin 1 applic TOPICAL TID PRN 02/14/18 [History Confirmed 10/16/18] pseudoephedrine-guaifenesin [Mucinex D] 1 tab PO BID 02/14/18 [History Confirmed 10/16/18] Brovana 15 mcg INHALATION QID PRN 04/09/18 [History Confirmed 10/16/18] alprazolam 0.5 mg tablet 0.5 mg PO TID PRN #90 tab 08/14/18 [Rx Confirmed 10/16/18] paroxetine 30 mg tablet 30 mg PO DAILY #90 tab 08/14/18 [Rx Confirmed 10/16/18] montelukast 10 mg tablet 10 mg PO HS #90 tab 10/17/18 [Rx] Active Medications Acetaminophen (Tylenol) 650 mg PO Q4H PRN PRN Reason: pain/fever Stop: 11/15/18 06:05 Albuterol (Combivent Respimat) 1 puffs INH QID [facility] Stop: 11/15/18 16:59 Last Admin: 10/17/18 12:55 Dose: 1 puffs Documented by: Albuterol (Duoneb) 3 ml NEB Q2H PRN PRN Reason: sob Stop: 11/15/18 19:14 Alprazolam (Xanax) 0.5 mg PO TID PRN PRN Reason: Anxiety Stop: 11/15/18 06:05 Last Admin: 10/17/18 05:05 Dose: 0.5 mg Documented by: Aspirin (Ecotrin Ectab) [facility] [place]: 11/15/18 08:59 Last Admin: 10/17/18 07:42 Dose: 81 mg Documented by: Atorvastatin Calcium (Lipitor) 40 mg PO [facility] Stop: 11/15/18 20:59 Last Admin: 10/16/18 20:13 Dose: 40 mg Documented by: Cetirizine HCl (Zyrtec) 10 mg PO [facility] Stop: 11/15/18 20:59 Last Admin: 10/16/18 20:14 Dose: 10 mg Documented by: Enoxaparin Sodium (Lovenox) 40 mg SQ Q24H [facility] Stop: 11/15/18 08:59 Last Admin: 10/17/18 07:43 Dose: 40 mg Documented by: Guaifenesin (Mucinex) 600 mg PO Q12 PRN PRN Reason: Congestion Stop: 11/15/18 20:59 Azithromycin 250 mg/ Dextrose 252.5 mls @ 125 mls/hr IV DAILY@0700 [facility] Stop: 10/24/18 06:59 Last Infusion: 10/17/18 08:57 Dose: Infused Documented by: Methylprednisolone 60 mg/ (Syringe) 0.96 mls @ 1.5 mls/min IV Q8H [facility] Stop: 11/15/18 06:59 Last Admin: 10/17/18 15:08 Dose: 1.5 mls/min Documented by: Montelukast Sodium (Singulair) 10 mg PO HS [facility] Stop: 11/15/18 20:59 Last Admin: 10/16/18 20:13 Dose: 10 mg Documented by: Mupirocin (Bactroban 2%) 1 appln EXT TID PRN PRN Reason: DRY SKIN Stop: 11/15/18 06:14 Pantoprazole Sodium (Protonix) 40 mg PO QAM [facility]; Protocol Stop: 11/15/18 08:59 Last Admin: 10/17/18 07:43 Dose: 40 mg Documented by: Paroxetine HCl (Paroxetine Hcl) 30 mg PO DAILY [facility] Stop: 11/15/18 08:59 Last Admin: 10/17/18 07:43 Dose: 30 mg Documented by: Fluticasone/Salmeterol (Advair Diskus 500/50) 1 puffs INH BID [facility] Stop: 11/15/18 08:59 Last Admin: 10/17/18 07:42 Dose: 1 puffs Documented by: PG Care Time/CCT Total # of Minutes Spent Total Time Spent with Patient: Total time spent is greater than 50% in coordination of care (as documented) at patient's floor/unit and/or counseling patient: Resident Activity Tracking Resident Involvement: Resident Care Provided Care Provided: Adult Hospital Medicine
[2018-10-17] MEDS: MONTELUKAST SODIUM 10 MG TABLET PO SCH (20:47)
[2018-10-17] MEDS: ATORVASTATIN 40 MG TAB PO SCH (20:47)
[2018-10-17] MEDS: CETIRIZINE HCL 10 MG TABLET PO SCH (20:48)
[2018-10-18 06:26] LABS: BUN Creatinine Ratio 33.7 (10-20); Calcium 9.1 mg/dl (8.5-10.1); Creatinine Clr Calc Pharmacy 90.6 ml/min; Est GFR (African American) 120.7; Est GFR (Non-African American) 104.1; Potassium 4.4 mmol/L (3.5-5.1)
[2018-10-18] MEDS: methylPREDNISolone 60 MG in SYRINGE 0 ML IV SCH ×3 (06:38→23:31)
[2018-10-18] MEDS: AZITHROMYCIN 250 MG in DEXTROSE 5% 250 ML IV SCH (06:38)
[2018-10-18 08:25] LABS: Base Excess ABG 14.1 mEq/L (-9-1.8); HCO3 ABG 43 mmol/L (19-24); Oxygen Saturation ABG 97.4 % (90-95); PCO2 ABG 78 mmHg (35-46); PO2 ABG 106 mm/Hg (80-95); pH ABG 7.35 (7.35-7.45)
[2018-10-18 08:26] LABS: Allen Test Pos (Pos)
[2018-10-18] MEDS: FLUTICASONE/SALMETEROL (ADVAIR) 500/50 INH 14 PUFF INH SCH ×2 (08:29→21:19)
[2018-10-18] MEDS: ASPIRIN 81 MG ECTAB PO SCH (08:30)
[2018-10-18] MEDS: IPRATROPIUM BROMIDE/ALBUTEROL respimat INH INH SCH ×4 (08:30→21:19)
[2018-10-18] MEDS: ENOXAPARIN INJ 40 MG/0.4 ML SYR SQ SCH (08:30)
[2018-10-18] MEDS: PANTOprazole 40 MG TAB PO SCH (08:31)
[2018-10-18] MEDS: PARoxetine HCl 10 MG TAB PO SCH (08:31)
--- NOTE | 2018-10-18 16:01 | Family Medicine Progress Note ---
Date of Service October 18, 2018 Assessment & Plan (1) COPD exacerbation: 67-year-old male with a PMHx significant for end-stage COPD, chronically on 3 L O2, DEVEN on cpap (non-compliant), HLD, AAA status post PEVAR in March 2018, bilateral carotid stenosis (R ICA 50 to 69% stenosis, LICA less than 30% status post endarterectomy), tobacco use, PUD and anxiety who presented with worsening dyspnea x2 days. Currently being treated for an acute COPD exacerbation. Acute on chronic hypoxic/hypercapneic resp failure -ABG with CO2 retention -Pt noncompliant with bipap at night even while hospitalized -currently has [employer] mask fitting scheduled urgently by CM once he's discharged home. Has also been set up with home health. -placed on bipap while hospitalized with improvement in symptoms, once he's compliant. -on home O2 - 3L--currently at baseline. Metabolic Encephalopathy -mentation declined overnight; POC CO2 elevated -improved after placing on bipap -continue encouraging compliance especially at night. COPD exacerbation -Chest x-ray: Severe emphysema -continue azithromycin, Solumedrol 60mg q8h, scheduled inhaled albuterol q4h -of note pt prefers inhaler to duonebs. -continue home Advair, singulair -continue to monitor Hyperlipidemia/atherosclerosis Continue home aspirin and atorvastatin PUD Continue home PPI Anxiety Continue home alprazolam as needed and paroxetine Anemia Hemoglobin stable No concern for acute GI bleed FEN/GI: Heart healthy diet DVT prophylaxis: Lovenox 40 mg subcu daily Code: Full Disposition: Discharge pending improvement to baseline Supervising Physician Co-Signing Physician Notes Resident Physician Supervision Note: I independently interviewed and examined the patient and verified the mitchell history and physical, reviewed labs and image studies, discussed the case with the resident Dr. Bhat and agree with the findings and care plan. Subjective Mr. Morataya states he's doing much better. Is not able to keep the bipap on his face at night and often is confused in the AM. However, he was AAOx3 this AM. Denies fevers, chills, night sweats, TODD, blurry vision, chest pain, palps, N/V, diarrhea or constipation. Review of Systems Review of Systems: All systems reviewed & are unremarkable except as noted in HPI & below Results & Data Vital Signs (Past 12 Hours) Vital Signs Temp Pulse Resp BP Pulse Ox 10/18/18 15:37 36.4 C L 85 20 152/93 H 97 10/18/18 13:09 94 10/18/18 07:53 36.3 C L 77 20 123/77 95 Laboratory Results Laboratory Results - last 24 hr 10/18/18 10/18/18 05:19 08:04 ABG pH 7.35 ABG pCO2 78 H ABG pO2 106 H ABG HCO3 43 H ABG O2 Saturation 97.4 H ABG Base Excess 14.1 H [place] Test Pos Barometric Pressure 732.4 Oxygen Given 5L Sodium 139 Potassium 4.4 Chloride 95 L Carbon Dioxide 43 H* Anion Gap 2.0 L BUN 21 H Creatinine 0.62 Est Cr Clr Drug Dosing 90.6 Est GFR ( Amer) 120.7 Est GFR (Non-Af Amer) 104.1 BUN/Creatinine Ratio 33.7 H Glucose 131 H Calcium 9.1 Medications Administered Home Medications Combivent Respimat 1 puff INHALATION QID 02/14/18 [History Confirmed 10/16/18] Spiriva with HandiHaler 1 cap INHALATION QAM 02/14/18 [History Confirmed 10/16/18] albuterol sulfate 2 puff INHALATION Q6H PRN 02/14/18 [History Confirmed 10/16/18] aspirin [Aspir-81] 81 mg PO QAM 02/14/18 [History Confirmed 10/16/18] atorvastatin 40 mg PO HS 02/14/18 [History Confirmed 10/16/18] cetirizine 10 mg PO HS 02/14/18 [History Confirmed 10/16/18] esomeprazole magnesium [Nexium] 40 mg PO QAM 02/14/18 [History Confirmed 10/16/18] fluticasone propion-salmeterol [Advair Diskus] 1 inh INHALATION BID 02/14/18 [History Confirmed 10/16/18] mupirocin 1 applic TOPICAL TID PRN 02/14/18 [History Confirmed 10/16/18] pseudoephedrine-guaifenesin [Mucinex D] 1 tab PO BID 02/14/18 [History Confirmed 10/16/18] Brovana 15 mcg INHALATION QID PRN 04/09/18 [History Confirmed 10/16/18] alprazolam 0.5 mg tablet 0.5 mg PO TID PRN #90 tab 08/14/18 [Rx Confirmed 10/16/18] paroxetine 30 mg tablet 30 mg PO DAILY #90 tab 08/14/18 [Rx Confirmed 10/16/18] montelukast 10 mg tablet 10 mg PO HS #90 tab 10/17/18 [Rx] Active Medications Acetaminophen (Tylenol) 650 mg PO Q4H PRN PRN Reason: pain/fever Stop: 11/15/18 06:05 Albuterol (Combivent Respimat) 1 puffs INH QID [facility] Stop: 11/15/18 16:59 Last Admin: 10/18/18 13:04 Dose: 1 puffs Documented by: Albuterol (Duoneb) 3 ml NEB Q2H PRN PRN Reason: sob Stop: 11/15/18 19:14 Alprazolam (Xanax) 0.5 mg PO TID PRN PRN Reason: Anxiety Stop: 11/15/18 06:05 Last Admin: 10/17/18 20:50 Dose: 0.5 mg Documented by: Aspirin (Ecotrin Ectab) 81 mg PO QAM [facility] Stop: 11/15/18 08:59 Last Admin: 10/18/18 08:30 Dose: 81 mg Documented by: Atorvastatin Calcium (Lipitor) 40 mg PO HS [facility] Stop: 11/15/18 20:59 Last Admin: 10/17/18 20:47 Dose: 40 mg Documented by: Cetirizine HCl (Zyrtec) 10 mg PO HS [facility] Stop: 11/15/18 20:59 Last Admin: 10/17/18 20:48 Dose: 10 mg Documented by: Enoxaparin Sodium (Lovenox) 40 mg SQ Q24H [facility] Stop: 11/15/18 08:59 Last Admin: 10/18/18 08:30 Dose: 40 mg Documented by: Guaifenesin (Mucinex) 600 mg PO Q12 PRN PRN Reason: Congestion Stop: 11/15/18 20:59 Azithromycin 250 mg/ Dextrose 252.5 mls @ 125 mls/hr IV DAILY@0700 [facility] Stop: 10/24/18 06:59 Last Infusion: 10/18/18 08:55 Dose: Infused Documented by: Methylprednisolone 60 mg/ (Syringe) 0.96 mls @ 1.5 mls/min IV Q8H [facility] Stop: 11/15/18 06:59 Last Admin: 10/18/18 14:29 Dose: 1.5 mls/min Documented by: Montelukast Sodium (Singulair) 10 mg PO HS [facility] Stop: 11/15/18 20:59 Last Admin: 10/17/18 20:47 Dose: 10 mg Documented by: Mupirocin (Bactroban 2%) 1 appln EXT TID PRN PRN Reason: DRY SKIN Stop: 11/15/18 06:14 Pantoprazole Sodium (Protonix) 40 mg PO QAM [facility]; Protocol Stop: 11/15/18 08:59 Last Admin: 10/18/18 08:31 Dose: 40 mg Documented by: Paroxetine HCl (Paroxetine Hcl) 30 mg PO DAILY [facility] Stop: 11/15/18 08:59 Last Admin: 10/18/18 08:31 Dose: 30 mg Documented by: Fluticasone/Salmeterol (Advair Diskus 500/50) 1 puffs INH BID [facility] Stop: 11/15/18 08:59 Last Admin: 10/18/18 08:29 Dose: 1 puffs Documented by: PG Care Time/CCT Total # of Minutes Spent Total Time Spent with Patient: Total time spent is greater than 50% in coordination of care (as documented) at patient's floor/unit and/or counseling patient: Resident Activity Tracking Resident Involvement: Resident Care Provided Care Provided: Adult Hospital Medicine
[2018-10-18] MEDS: MONTELUKAST SODIUM 10 MG TABLET PO SCH (21:19)
[2018-10-18] MEDS: ATORVASTATIN 40 MG TAB PO SCH (21:19)
[2018-10-18] MEDS: CETIRIZINE HCL 10 MG TABLET PO SCH (21:20)
[2018-10-19] MEDS: AZITHROMYCIN 250 MG in DEXTROSE 5% 250 ML IV SCH (05:36)
[2018-10-19] MEDS: methylPREDNISolone 60 MG in SYRINGE 0 ML IV SCH ×3 (05:37→22:28)
[2018-10-19 06:38] LABS: Hematocrit (blood only) 35.6 % (42-52); Hemoglobin 10.9 g/dL (14.0-18.0); Mean Corpuscular Hemoglobin 29.1 pg (25-34); Mean Corpuscular Hgb Conc 30.6 g/dL (32-36); Mean Corpuscular Volume 94.9 fL (80-100); Mean Platelet Volume 9.2 fL (7.4-10.4); Platelet Count 158 K/uL (130-400); RDW Coefficient of Variation 14.3 % (11.5-14.5); RDW Standard Deviation 49.3 fL (36.4-46.3); Red Blood Count 3.75 M/uL (4.7-6.1); White Blood Count 7.72 K/uL (4.8-10.8)
[2018-10-19 06:53] LABS: BUN Creatinine Ratio 44.1 (10-20); Calcium 8.6 mg/dl (8.5-10.1); Est GFR (African American) 129.7; Est GFR (Non-African American) 111.9; Potassium 4.2 mmol/L (3.5-5.1)
[2018-10-19] MEDS: FLUTICASONE/SALMETEROL (ADVAIR) 500/50 INH 14 PUFF INH SCH ×2 (07:53→20:50)
[2018-10-19] MEDS: ASPIRIN 81 MG ECTAB PO SCH (07:53)
[2018-10-19] MEDS: IPRATROPIUM BROMIDE/ALBUTEROL respimat INH INH SCH ×4 (07:53→20:51)
[2018-10-19] MEDS: ENOXAPARIN INJ 40 MG/0.4 ML SYR SQ SCH (07:53)
[2018-10-19] MEDS: PANTOprazole 40 MG TAB PO SCH (07:54)
[2018-10-19] MEDS: PARoxetine HCl 10 MG TAB PO SCH (07:54)
[2018-10-19] MEDS: ALPRAZolam 0.5 MG TABLET PO PRN ×2 (12:51→22:32)
--- NOTE | 2018-10-19 14:55 | Family Medicine Progress Note ---
Date of Service October 19, 2018 Assessment & Plan (1) COPD exacerbation: 67-year-old male with a PMHx significant for end-stage COPD, chronically on 3 L O2, DEVEN on cpap (non-compliant), HLD, AAA status post PEVAR in March 2018 who presented with worsening dyspnea x2 days. Currently being treated for an acute COPD exacerbation. Acute on chronic hypoxic/hypercapneic resp failure Patient having to be more compliant with BiPAP overnight, used for 5 hoursOvernight -currently has [employer] mask fitting scheduled urgently by CM once he's discharged home. Has also been set up with home health. -placed on bipap while hospitalized with improvement in symptoms Still requiring 4 L Supplemental oxygen only requiring 3 L at home Metabolic Encephalopathy Mentating well per who is present at bedside today, patient is at baseline awake alert oriented to person place time and situation. No confusion apparent COPD exacerbation -Chest x-ray: No evidence of pneumonia -continue azithromycin, Solumedrol 60mg q8h, scheduled inhaled albuterol q4h -of note pt prefers inhaler to duonebs. -continue home Advair, singulair Strength and mobility Patient having a lot of trouble with physical activity: Regular been going to bathroom We will get PT OT evaluation and determine whether or not patient needs inpatient rehabilitation placement Hyperlipidemia/atherosclerosis Continue home aspirin and atorvastatin PUD Continue home PPI Anxiety Continue home alprazolam as needed and paroxetine Anemia Hemoglobin stable No concern for acute GI bleed FEN/GI: Heart healthy diet DVT prophylaxis: Lovenox 40 mg subcu daily Code: Full Disposition: Discharge pending improvement to baseline Supervising Physician Co-Signing Physician Notes I personally examined the patient and verified all mitchell points of history and exam, discussed case, and agree with decision making with Dr Moreno. Feeling better, but not back to baseline. Is not quite feeling where he feels like he would be safe at home, corroborates. The biggest issue seems to be weakness and/or dyspnea on exertion. Vitals noted, in general he is awake and alert pleasant no distress. Breathing is unlabored but very quiet no accessory muscle use, no rales or rhonchi, right lung shows a faint end expiratory wheeze. Skin shows no rashes no pallor or icterus. Acute on chronic hypoxic and hypercapnic respiratory failure related to a COPD exacerbationimproving, encouraged to increase activity, PT/OT eval and treat. Continue current care otherwise. DVT prophylaxisLovenox Subjective Jose Enrique Morataya doing better today, tells me he feels mildly short of breath, but close to his baseline. He does not endorse any other concerning symptoms and has been able to ambulate a little bit. Tells me he is trying to use the CPAP and in fact used it for five hours at least last night. Review of Systems Review of Systems: All systems reviewed & are unremarkable except as noted in HPI & below Physical Exam Constitutional: Well-appearing, quite tremulous though no acute distress. Calm comfortable and cooperative Eyes: Pupils equal round reactive to light, anicteric sclerae extraocular m uscle motions intact bilaterally Respiratory: Chest expansion symmetric lung sounds diminished globally, very prolonged expiratory phase, wheezing globally end expiratory Cardiovascular: Regular rate regular rhythm, no murmurs rubs skips or gallops, distal pulses intact Gastrointestinal (Abdomen): Abdomen soft nontender, no masses no hepatomegaly Skin: No lesions Neurologic: Awake oriented to person place time situation, no gross motor abnormalities no dysarthria no dysphasia Results & Data Vital Signs (Past 12 Hours) Vital Signs Temp Pulse Resp BP Pulse Ox 10/19/18 07:32 36.6 C 75 16 101/47 L 98 10/19/18 07:18 36.4 C L 89 18 133/77 95 PG Care Time/CCT Total # of Minutes Spent Total Time Spent with Patient: Total time spent is greater than 50% in coordination of care (as documented) at patient's floor/unit and/or counseling patient: Resident Activity Tracking Resident Involvement: Resident Care Provided Care Provided: Adult Hospital Medicine
[2018-10-19] MEDS: MONTELUKAST SODIUM 10 MG TABLET PO SCH (20:52)
[2018-10-19] MEDS: CETIRIZINE HCL 10 MG TABLET PO SCH (20:52)
[2018-10-19] MEDS: guaiFENesin 600 MG TABCR PO SCH (20:52)
[2018-10-19] MEDS: ATORVASTATIN 40 MG TAB PO SCH (20:52)
[2018-10-20] MEDS: methylPREDNISolone 60 MG in SYRINGE 0 ML IV SCH ×2 (05:55→14:09)
[2018-10-20 06:53] LABS: Calcium 8.5 mg/dl (8.5-10.1); Creatinine Clr Calc Pharmacy 93.6 ml/min; Est GFR (African American) 122.3; Est GFR (Non-African American) 105.5; Potassium 4.6 mmol/L (3.5-5.1)
[2018-10-20] MEDS: FLUTICASONE/SALMETEROL (ADVAIR) 500/50 INH 14 PUFF INH SCH ×2 (08:17→20:35)
[2018-10-20] MEDS: ASPIRIN 81 MG ECTAB PO SCH (08:17)
[2018-10-20] MEDS: IPRATROPIUM BROMIDE/ALBUTEROL respimat INH INH SCH ×4 (08:17→20:36)
[2018-10-20] MEDS: PARoxetine HCl 10 MG TAB PO SCH (08:18)
[2018-10-20] MEDS: guaiFENesin 600 MG TABCR PO SCH ×2 (08:18→20:38)
[2018-10-20] MEDS: ENOXAPARIN INJ 40 MG/0.4 ML SYR SQ SCH (08:18)
[2018-10-20] MEDS: AZITHROMYCIN 250 MG TAB PO SCH (08:18)
[2018-10-20] MEDS: PANTOprazole 40 MG TAB PO SCH (08:18)
--- NOTE | 2018-10-20 12:21 | Family Medicine Progress Note ---
Date of Service October 20, 2018 Assessment & Plan (1) COPD exacerbation: 67-year-old male with a PMHx significant for end-stage COPD, chronically on 3 L O2, DEVEN on cpap (non-compliant), HLD, AAA status post PEVAR in March 2018 who presented with worsening dyspnea x2 days. Currently being treated for an acute COPD exacerbation. Acute on chronic hypoxic/hypercapneic resp failure Patient needs to be more compliant with CPAP overnight did not use at all last night. -currently has [employer] mask fitting scheduled urgently by CM once he's discharged home. Has also been set up with home health. Still requiring 4 L Supplemental oxygen only requiring 3 L at home Metabolic Encephalopathy Mentating well AAOx4 No encephalopathy apparent COPD exacerbation -Chest x-ray: No evidence of pneumonia -continue azithromycin, Will transition patient to oral pred taper 60 mg PO tomorrow -of note pt prefers inhaler to duonebs. -continue home Advair, singulair Strength and mobility Patient having a lot of trouble with physical activity: Regular been going to bathroom We will get PT OT evaluation and determine whether or not patient needs inpatient rehabilitation placement Hyperlipidemia/atherosclerosis Continue home aspirin and atorvastatin PUD Continue home PPI Anxiety Continue home alprazolam as needed and paroxetine Anemia Hemoglobin stable No concern for acute GI bleed FEN/GI: Heart healthy diet DVT prophylaxis: Lovenox 40 mg subcu daily Code: Full Disposition: Discharge pending improvement to baseline and PT/OT eval Supervising Physician Co-Signing Physician Notes I personally examined the patient and verified all mitchell points of history and exam, discussed case, and agree with decision making with Dr Moreno. still not really getting around well. Vitals noted, in general he is awake and alert pleasant no distress. Breathing is unlabored no accessory muscles good effort. Skin shows no rashes no pallor or icterus. Acute on chronic hypoxic and hypercapnic respiratory failure related to a COPD exacerbationimproving slowly, await PT/OTbut may need rehab. Continue current care otherwise. DVT prophylaxisLovenox Subjective Mr Morataya feels like he's doing well today, breathing maybe slightly improved from yesterday. Still had some trouble with getting up and getting himself cleaned off in the bathroom. Review of Systems Review of Systems: All systems reviewed & are unremarkable except as noted in HPI & below Physical Exam Constitutional: well developed, well nourished, cooperative and comfortable Respiratory: + labored breathing, + uses accessory muscles and able to speak in complete sentences Auscultation: + diminished lung sounds, + wheezes (End expiratory wheeze) and + abnormal I/E ratio (Prolonged expiratory phase) Cardiovascular: RRR, no murmur, no edema Gastrointestinal (Abdomen): normal bowel sounds, soft, nontender, no hepatosplenomegaly Results & Data Vital Signs (Past 12 Hours) Vital Signs Temp Pulse Resp BP BP Pulse Ox 10/20/18 08:32 82 137/84 10/20/18 08:10 36.5 C 80 20 193/104 H 96 PG Care Time/CCT Total # of Minutes Spent Total Time Spent with Patient: Total time spent is greater than 50% in coordination of care (as documented) at patient's floor/unit and/or counseling patient: Resident Activity Tracking Resident Involvement: Resident Care Provided Care Provided: Adult Hospital Medicine
[2018-10-20] MEDS: ATORVASTATIN 40 MG TAB PO SCH (20:38)
[2018-10-20] MEDS: MONTELUKAST SODIUM 10 MG TABLET PO SCH (20:38)
[2018-10-20] MEDS: CETIRIZINE HCL 10 MG TABLET PO SCH (20:38)
[2018-10-20] MEDS: ALPRAZolam 0.5 MG TABLET PO PRN (21:23)
[2018-10-21 06:47] LABS: BUN Creatinine Ratio 48.2 (10-20); Calcium 8.2 mg/dl (8.5-10.1); Creatinine Clr Calc Pharmacy 122.1 ml/min; Est GFR (African American) 136.4; Est GFR (Non-African American) 117.7; Potassium 4.1 mmol/L (3.5-5.1)
[2018-10-21] MEDS: IPRATROPIUM BROMIDE/ALBUTEROL respimat INH INH SCH ×2 (08:41→12:36)
[2018-10-21] MEDS: FLUTICASONE/SALMETEROL (ADVAIR) 500/50 INH 14 PUFF INH SCH (08:41)
[2018-10-21] MEDS: guaiFENesin 600 MG TABCR PO SCH (08:42)
[2018-10-21] MEDS: ASPIRIN 81 MG ECTAB PO SCH (08:42)
[2018-10-21] MEDS: PANTOprazole 40 MG TAB PO SCH (08:42)
[2018-10-21] MEDS: AZITHROMYCIN 250 MG TAB PO SCH (08:42)
[2018-10-21] MEDS: PARoxetine HCl 10 MG TAB PO SCH (08:42)
[2018-10-21] MEDS: ENOXAPARIN INJ 40 MG/0.4 ML SYR SQ SCH (08:44)
[2018-10-21] MEDS ORDERED: predniSONE 20 MG TAB PO SCH (09:00)
--- NOTE | 2018-10-21 12:11 | Family Medicine Progress Note ---
Date of Service October 21, 2018 Assessment & Plan (1) COPD exacerbation: 67-year-old male with a PMHx significant for end-stage COPD, chronically on 3 L O2, DEVEN on cpap (non-compliant), HLD, AAA status post PEVAR in March 2018 who presented with worsening dyspnea x2 days. Currently being treated for an acute COPD exacerbation. Acute on chronic hypoxic/hypercapneic resp failure -Pt with issue of overnight CPAP/Bipap compliance. -To help, currently has [employer] mask fitting scheduled urgently by case management once he's discharged home. Has also been set up with home health. Still requiring 4 L Supplemental oxygen only requiring 3 L at home Metabolic Encephalopathy Mentating well AAOx4 No encephalopathy apparent COPD exacerbation -Chest x-ray: No evidence of pneumonia -continue azithromycin, Will transition patient to oral pred taper 60 mg PO tomorrow -of note pt prefers inhaler to duonebs. -continue home Advair, singulair Strength and mobility Patient having a lot of trouble with physical activity: Regular been going to bathroom We will get PT OT evaluation and determine whether or not patient needs inpatient rehabilitation placement Hyperlipidemia/atherosclerosis Continue home aspirin and atorvastatin PUD Continue home PPI Anxiety Continue home alprazolam as needed and paroxetine Anemia Hemoglobin stable No concern for acute GI bleed FEN/GI: Heart healthy diet DVT prophylaxis: Lovenox 40 mg subcu daily Code: Full Disposition: Discharge pending improvement to baseline and PT/OT eval Subjective Mr. Morataya states he's doing well today. Was not able to use his CPAP overnight. However denies TODD, blurry vision, SOB, chest pain, palpitations, N/V, abd pain, swelling in hands or feet. Review of Systems Review of Systems: All systems reviewed & are unremarkable except as noted in HPI & below Physical Exam Physical Exam: General: Alert, oriented. No acute distress. Nasal cannula in nares. HEENT: NC/AT, PERRLA, EOMI, oropharynx moist. Chest: Nontender to palpation. CV: RRR, Normal s1, s2. No murmurs appreciated Resp: No increased effort of breathing. Decreased breath sounds with expiratory wheezes. Abdomen: Soft, nontender, nondistended. No guarding. No organomegaly appreciated. Extremities: No edema in lower extremities bilaterally. Results & Data Vital Signs (Past 12 Hours) Vital Signs Temp Pulse Resp BP Pulse Ox Pulse Ox Pulse Ox 10/21/18 11:31 129/76 10/21/18 10:13 94 10/21/18 10:11 94 94 10/21/18 07:36 36.4 C L 69 18 180/94 H 98 Pulse Ox 10/21/18 11:31 10/21/18 10:13 10/21/18 10:11 92 10/21/18 07:36 Laboratory Results Laboratory Results - last 24 hr 10/21/18 05:45 Sodium 141 Potassium 4.1 Chloride 99 Carbon Dioxide 41 H* Anion Gap 1.0 L BUN 22 H Creatinine 0.46 L Est Cr Clr Drug Dosing 122.1 Est GFR ( Amer) 136.4 Est GFR (Non-Af Amer) 117.7 BUN/Creatinine Ratio 48.2 H Glucose 90 Calcium 8.2 L Medications Administered Home Medications Combivent Respimat 1 puff INHALATION QID 02/14/18 [History Confirmed 10/16/18] Spiriva with HandiHaler 1 cap INHALATION QAM 02/14/18 [History Confirmed 10/16/18] albuterol sulfate 2 puff INHALATION Q6H PRN 02/14/18 [History Confirmed 10/16/18] aspirin [Aspir-81] 81 mg PO QAM 02/14/18 [History Confirmed 10/16/18] atorvastatin 40 mg PO HS 02/14/18 [History Confirmed 10/16/18] cetirizine 10 mg PO HS 02/14/18 [History Confirmed 10/16/18] esomeprazole magnesium [Nexium] 40 mg PO QAM 02/14/18 [History Confirmed 10/16/18] fluticasone propion-salmeterol [Advair Diskus] 1 inh INHALATION BID 02/14/18 [History Confirmed 10/16/18] mupirocin 1 applic TOPICAL TID PRN 02/14/18 [History Confirmed 10/16/18] pseudoephedrine-guaifenesin [Mucinex D] 1 tab PO BID 02/14/18 [History Confirmed 10/16/18] Brovana 15 mcg INHALATION QID PRN 04/09/18 [History Confirmed 10/16/18] alprazolam 0.5 mg tablet 0.5 mg PO TID PRN #90 tab 08/14/18 [Rx Confirmed 10/16/18] paroxetine 30 mg tablet 30 mg PO DAILY #90 tab 08/14/18 [Rx Confirmed 10/16/18] montelukast 10 mg tablet 10 mg PO HS #90 tab 10/17/18 [Rx] Active Medications Acetaminophen (Tylenol) 650 mg PO Q4H PRN PRN Reason: pain/fever Stop: 11/15/18 06:05 Albuterol (Combivent Respimat) 1 puffs INH QID [facility] Stop: 11/15/18 16:59 Last Admin: 10/21/18 08:41 Dose: 1 puffs Documented by: Albuterol (Duoneb) 3 ml NEB Q2H PRN PRN Reason: sob Stop: 11/15/18 19:14 Alprazolam (Xanax) 0.5 mg PO TID PRN PRN Reason: Anxiety Stop: 11/15/18 06:05 Last Admin: 10/20/18 21:23 Dose: 0.5 mg Documented by: Aspirin (Ecotrin Ectab) 81 mg PO QAM [facility] Stop: 11/15/18 08:59 Last Admin: 10/21/18 08:42 Dose: 81 mg Documented by: Atorvastatin Calcium (Lipitor) 40 mg PO HS [facility] Stop: 11/15/18 20:59 Last Admin: 10/20/18 20:38 Dose: 40 mg Documented by: Azithromycin (Zithromax) 250 mg PO DAILY [facility]; Protocol Stop: 10/23/18 08:59 Last Admin: 10/21/18 08:42 Dose: 250 mg Documented by: Cetirizine HCl (Zyrtec) 10 mg PO HS [facility] Stop: 11/15/18 20:59 Last Admin: 10/20/18 20:38 Dose: 10 mg Documented by: Enoxaparin Sodium (Lovenox) 40 mg SQ Q24H [facility] Stop: 11/15/18 08:59 Last Admin: 10/21/18 08:44 Dose: 40 mg Documented by: Guaifenesin (Mucinex) 600 mg PO Q12 [facility] Stop: 11/18/18 20:59 Last Admin: 10/21/18 08:42 Dose: 600 mg Documented by: Montelukast Sodium (Singulair) 10 mg PO HS [facility] Stop: 11/15/18 20:59 Last Admin: 10/20/18 20:38 Dose: 10 mg Documented by: Mupirocin (Bactroban 2%) 1 appln EXT TID PRN PRN Reason: DRY SKIN Stop: 11/15/18 06:14 Pantoprazole Sodium (Protonix) 40 mg PO QAM [facility]; Protocol Stop: 11/15/18 08:59 Last Admin: 10/21/18 08:42 Dose: 40 mg Documented by: Paroxetine HCl (Paroxetine Hcl) 30 mg PO DAILY [facility] Stop: 11/15/18 08:59 Last Admin: 10/21/18 08:42 Dose: 30 mg Documented by: Prednisone (Prednisone) 60 mg PO DAILY [facility] Stop: 11/20/18 08:59 Last Admin: 10/21/18 08:42 Dose: 60 mg Documented by: Fluticasone/Salmeterol (Advair Diskus 500/50) 1 puffs INH BID [facility] Stop: 11/15/18 08:59 Last Admin: 10/21/18 08:41 Dose: 1 puffs Documented by: PG Care Time/CCT Total # of Minutes Spent Total Time Spent with Patient: Total time spent is greater than 50% in coordination of care (as documented) at patient's floor/unit and/or counseling patient:
[2018-10-21] MEDS: ALPRAZolam 0.5 MG TABLET PO PRN (12:39)
--- NOTE | 2018-10-21 14:17 | Discharge Summary ---
Date of Service October 21, 2018 Admission HPI Per Admitting Provider 67-year-old male with history of severe COPD end-stage on 3 L O2 [id number], DEVNE on cpap (non-complaint), HLD, AAA status post PEVAR in March 2018, bilateral carotid stenosis (R ICA 50 to 69% stenosis, LICA less than 30% status post endarterectomy), tobacco use, PUD, anxiety presents with worsening dyspnea x2 days. Associated with sweating and chills. Reports triggered by weather was sitting on the porch when it was raining and also took dog out which bothered him. Denies increased productive cough from baseline. Denies any fever, headache, lightheadedness, chest pain, abdominal pain, nausea, vomiting, diarrhea, constipation, dysuria. Reports normal bowel movement yesterday. Smoking: smoking since age 11 at one point 3 ppd then 2ppd and now 1 pack Q2 days, reports drinks 1 beer to half a case sometimes, reports going without it and denies any withdrawal symptoms or seizures Admission Exam Per Admitting Provider General: In NAD, cachectic Neuro: A&O x 4 Pulm: Diminished breath sounds, diffuse wheezing appreciated CV: RRR, no m/r/g Abdomen:+BS, no TTP in all quadrants, non-distended LE: no LE edema, no calf TTP Principal Diagnosis COPD Exacerbation Discharge Exam General: Alert, oriented. No acute distress. Nasal cannula in nares. HEENT: NC/AT, PERRLA, EOMI, oropharynx moist. Chest: Nontender to palpation. CV: RRR, Normal s1, s2. No murmurs appreciated Resp: No increased effort of breathing. Decreased breath sounds with expiratory wheezes. Abdomen: Soft, nontender, nondistended. No guarding. No organomegaly appreciated. Extremities: No edema in lower extremities bilaterally. Discharge Data Allergies Allergy/AdvReac Type Severity Reaction Status Date / Time house dust mite AdvReac Unknown Sneezing Verified 10/16/18 01:17 methadone AdvReac Unknown Anxiety Verified 10/16/18 01:17 propoxyphene AdvReac Unknown hallucinati Verified 10/16/18 01:17 on ragweed pollen AdvReac Unknown Sneezing Verified 10/16/18 01:17 Consultations 10/16/18 04:16 ED Decision to Admit Stat Hospital Course (1) COPD exacerbation: 67-year-old male with a PMHx significant for end-stage COPD, chronically on 3 L O2, DEVEN on cpap (non-compliant), HLD, AAA status post PEVAR in March 2018 who presented with worsening dyspnea x2 days. Was treated for an acute COPD exacerbation. Admitted on 10/16/18 and discharged on 10/21/18. Acute on chronic hypoxic/hypercapneic resp failure -Pt with issue of overnight CPAP/Bipap compliance. States he does not like keeping it on his face overnight. -would recurrently have an elevated pCO2 in the AM, >70. -To help with compliance, on discharge pt currently has [employer] mask fitting scheduled by case management. Has also been set up with home health. -Still requiring 4 L Supplemental oxygen on discharge (previous baseline of 3 L at home). Might be new baseline. -close PCP followup recommended. Metabolic Encephalopathy Mentating well AAOx4 on discharge. Had episodes of confusion after nights of noncompliance with overnight bipap/cpap COPD exacerbation -Chest x-ray: No evidence of pneumonia -completed course of azithromycin while hospitalized -Transitioned patient from IV Pred to oral pred taper 60 mg PO on discharge. -of note pt prefers albuterol inhaler to duonebs;inhaler administered while hospitalized. -continue home Symbicort, combivent, Advair, singulair -close PCP followup recommended. Strength and mobility/Conditioning Difficulty with ambulation to bathroom noted PT/OT eval--Pt at baseline; no acute rehab needed. Close PCP followup recommended. Hyperlipidemia/atherosclerosis Continue home aspirin and atorvastatin PUD Continue home PPI Anxiety Continue home alprazolam as needed and paroxetine Anemia Hemoglobin stable No concern for acute GI bleed Total Time Total Time Spent Total Time Spent (In Minutes): <30 Discharge Plan Discharge Items Patient Disposition: Home - Self-Care Reason For Visit: DYSPNEA Discharge Diagnosis: COPD Exacerbation Discharge Goals: Decrease discomfort, Improve disease control and Improve function Activity: Per 'Additional Instructions' section Non-emergency contact: Primary Care Provider Call non-emergency contact if: your symptoms worsen and you have a fever Follow-up/Referrals: Lachelle Wong MD [Primary Care Provider] - Diet: Heart Healthy Addtl Provider Instructions: Mr. Morataya, you were admitted and treated for a COPD Exacerbation. We treated you with antibiotics and steroids and your symptoms improved. -Please continue taking the steroids at home as directed. Take 3 tabs for the next 3 days starting tomorrow 10/22/18 , then 2 tabs for the next 4 days and then 1 tab for the final 4 days. -You completed your course of antibiotics in the hospital so no antibiotics are currently needed at home. -Please continue to take your home Spiriva everyday. -Please continue to take your home Advair two times a day. -Please continue to take your home Combivent as much as you need to. -Please continue taking your home Singulair everyday. -Please continue to use your home CPAP machine during the night. It helps with your breathing and mental status in the morning. We have arranged for it to be fitted in a better manner to your face. -Please seek emergent medical care should you suddenly find that you are struggling to breather as before even with the use of your inhalers or you are severely confused, or your symptoms that brought you in to the hospital return. It was a pleasure taking care of you during your stay here! Prescriptions: New prednisone 20 mg tablet See Rx Instructions .ROUTE .COMPLEX 11 Days Qty: 21 RF: 0 Continued paroxetine HCl 30 mg tablet 30 mg PO DAILY Qty: 90 RF: 1 alprazolam 0.5 mg tablet 0.5 mg PO TID PRN (Reason: Anxiety) Qty: 90 RF: 0 montelukast [Singulair] 10 mg tablet 10 mg PO HS Qty: 90 RF: 3 aspirin [Aspir-81] 81 mg Tablet,Delayed Release (Dr/Ec) 81 mg PO QAM RF: 0 albuterol sulfate 90 mcg/actuation Hfa Aerosol Inhaler 2 puff INHALATION Q6H PRN (Reason: Wheezing) RF: 0 esomeprazole magnesium [Nexium] 40 mg Capsule,Delayed Release(Dr/Ec) 40 mg PO QAM RF: 0 mupirocin 2 % Ointment 1 applic TOPICAL TID PRN (Reason: Dry Skin) RF: 0 pseudoephedrine-guaifenesin [Mucinex D] 60-600 mg Tablet Extended Release 12 Hr 1 tab PO BID RF: 0 Spiriva with HandiHaler 18 mcg Capsule, W/Inhalation Device 1 cap INHALATION QAM RF: 0 Combivent Respimat 20-100 mcg/actuation Mist 1 puff INHALATION QID RF: 0 fluticasone propion-salmeterol [Advair Diskus] 500-50 mcg/dose Blister With Device 1 inh INHALATION BID RF: 0 atorvastatin 40 mg Tablet 40 mg PO HS RF: 0 cetirizine 10 mg Tablet,Disintegrating 10 mg PO HS RF: 0 Brovana 15 mcg/2 mL Solution For Nebulization 15 mcg INHALATION QID PRN (Reason: Shortness Of Breath Or Wheezing) RF: 0 Stand-Alone Forms: [facility] Discharge Orders: Discharge Order (Routine); Ordered 10/21/18 Ordered By: Caren Bhat Admission Data Admit Date/Time: 10/17/18 13:20 Attending Provider: Glenn Cavanaugh Admit Provider: Kaitlyn Painting Primary Care Provider: Lachelle Wong Other Providers: Kaitlyn Painting ; Leila Elizabeth Service: Medical Other Interventions: Discharge Summary Assessment (RN) Last Done: 10/21/18 14:03 DC Date/Time DO NOT enter until pt leaves facility: 10/21/18 14:40 Supervising Physician Co-Signing Physician Notes I personally examined the patient and verified all mitchell points of history and exam, discussed case, and agree with decision making with Dr Bhat. Breathing feeling about the same, did well with PT and OT. Discussed with patient and , and they both feel that he will be able to do okay at home. We also had an extensive discussion on using his CPAP at night, discussing that his COPD causes him to hyperventilate, and that separately obstructive sleep apnea causes people to hyperventilate, and that without treating his sleep apnea he certainly putting himself at significant risk for at least morbidity if not mortality. expressed good understanding more so than the patient, but both expressed understanding. Vitals noted, in general he is awake and alert pleasant no distress. Breathing is unlabored no accessory muscles good effort. Skin shows no rashes no pallor or icterus. Acute on chronic hypoxic and hypercapnic respiratory failure related to a COPD exacerbationimproving slowly, at this point he has been transitioned to entirely oral and inhaler regimens, is doing well enough that keeping him in the hospital longer appears to focus more of a risk of a healthcare associated infection or deconditioning. Patient and expressed good understanding. Stable for home. Close PCP follow-up. Otherwise as above. DVT prophylaxisLovenox utilized during his stay Resident Activity Tracking Resident Involvement: Resident Care Provided Care Provided: Adult [facility]
== END 2018-10-21 14:40 | disposition home health service (06) | DRG 208 ==
LOC: ED 00:38 → 4W 00:38 → SUATTDRO 05:15 → 4W 05:27 → SUATTDRO 10-17 13:20

== ENCOUNTER 2018-11-03 02:25 | Inpatient (IN) ==
[2018-11-03] MEDS ORDERED: methylPREDNISolone 125 MG/2 ML VIAL IV STA (02:31)
[2018-11-03] MEDS ORDERED: ALBUT/IPRATROP 3MG/0.5MG NEB 3 ML VIAL NEB ONE (02:31)
[2018-11-03] MEDS ORDERED: MAGNESIUM SULFATE / D5W 1 GM/100 ML BAG IV ONE (02:31)
[2018-11-03 02:46] LABS: Hematocrit (blood only) 36.7 % (42-52); Hemoglobin 11.1 g/dL (14.0-18.0); Mean Corpuscular Hemoglobin 29.8 pg (25-34); Mean Corpuscular Hgb Conc 30.2 g/dL (32-36); Mean Corpuscular Volume 98.7 fL (80-100); Mean Platelet Volume 8.9 fL (7.4-10.4); Platelet Count 136 K/uL (130-400); RDW Coefficient of Variation 15.1 % (11.5-14.5); RDW Standard Deviation 54.4 fL (36.4-46.3); Red Blood Count 3.72 M/uL (4.7-6.1); White Blood Count 4.55 K/uL (4.8-10.8)
[2018-11-03 03:05] LABS: Alanine Aminotransferase 125 U/L (12-78); Albumin Level 2.4 gm/dl (3.4-5.0); Aspartate Aminotransferase 36 U/L (15-37); BUN Creatinine Ratio 39.2 (10-20); Blood Urea Nitrogen 22 mg/dl (7-18); Calcium 8.3 mg/dl (8.5-10.1); Carbon Dioxide 36 mmol/L (21-32); Chloride 104 mmol/L (98-107); Creatinine Clr Calc Pharmacy 123.5 ml/min; Est GFR (African American) 126.7; Est GFR (Non-African American) 109.4; Glucose 97 mg/dl (70-99); Lipase 54 U/L (73-393); Magnesium 2.1 mg/dl (1.8-2.4); Potassium 4.8 mmol/L (3.5-5.1); Sodium 142 mmol/L (136-145)
[2018-11-03 03:06] LABS: iSTAT Arterial Blood Gas HCO3 36 meg/L (19-24); iSTAT Arterial Blood Gas pCO2 99 mmHg (35-46); iSTAT Arterial Blood Gas pH 7.17 (7.35-7.45); iSTAT Arterial Blood Gas pO2 73 mmHg (80-95); iSTAT Carbon Dioxide 39 mEq/l (24-31)
[2018-11-03 03:10] LABS: Albumin Globulin Ratio 0.6 (0.9-2); Alkaline Phosphatase 95 U/L (45-117); Bilirubin,Total 0.8 mg/dl (0.2-1); Globulin 4.1 gm/dl (2.5-4.0); NT Pro B Type Natriuretic Pept 704 pg/ml (0-900); Total Protein 6.5 gm/dl (6.4-8.2); Troponin I < 0.015 ng/ml (0-0.045)
[2018-11-03] MEDS: SODIUM CHLORIDE 0.9% 1000ML 1,000 ML IV SCH ×3 (03:12→17:55)
[2018-11-03 03:13] LABS: D Dimer 4100 ug/L FEU (0-500)
[2018-11-03] MEDS ORDERED: CEFEPIME 2,000 MG/20 ML VIAL IV STA (03:33)
[2018-11-03] MEDS ORDERED: VANCOMYCIN CONSULT ACTIVE ONE (03:33)
[2018-11-03] MEDS ORDERED: VANCOMYCIN CONSULT ACTIVE PRN (03:33)
[2018-11-03] MEDS ORDERED: VANCOMYCIN HCL 1,250 MG in SODIUM CHLORIDE 0.9% 500 ML IV ONE (03:33)
[2018-11-03] MEDS ORDERED: AZITHROMYCIN 500 MG in DEXTROSE 5% 250 ML IV STA (03:35)
[2018-11-03 03:40] LABS: Basophils # (auto) 0.01 K/uL (0-0.2); Basophils % (auto) 0.2 %; Dohle Bodies 2+; Eosinophils # (auto) 0.08 K/uL (0-0.5); Eosinophils % (auto) 1.8 %; Immature Granulocytes # (auto) 0.05 K/uL (0.00-0.02); Immature Granulocytes % (auto) 1.1 %; Lymphocytes # (auto) 0.34 K/uL (1.2-3.4); Lymphocytes % (auto) 7.5 %; Monocytes # (auto) 0.71 K/uL (0.11-0.59); Monocytes % (auto) 15.6 %; Neutrophils # (auto) 3.36 K/uL (1.4-6.5); Neutrophils % (auto) 73.8 %; Toxic Granulation 2+; Toxic Vacuolation 1+
[2018-11-03 04:13] LABS: iSTAT Arterial Blood Gas HCO3 35 meg/L (19-24); iSTAT Arterial Blood Gas pCO2 96 mmHg (35-46); iSTAT Arterial Blood Gas pH 7.17 (7.35-7.45); iSTAT Arterial Blood Gas pO2 79 mmHg (80-95); iSTAT Carbon Dioxide 38 mEq/l (24-31)
[2018-11-03] MEDS ORDERED: PROPOFOL IV EMULSION 10 MG/ML 100 ML VIAL IV ONE (04:20)
[2018-11-03] MEDS ORDERED: RAPID SEQUENCE INDUCTION BAG ONE (04:21)
[2018-11-03 05:08] LABS: iSTAT Arterial Blood Gas HCO3 36 meg/L (19-24); iSTAT Arterial Blood Gas pCO2 93 mmHg (35-46); iSTAT Arterial Blood Gas pH 7.19 (7.35-7.45); iSTAT Arterial Blood Gas pO2 76 mmHg (80-95); iSTAT Carbon Dioxide 38 mEq/l (24-31)
[2018-11-03] MEDS: PROPOFOL 1,000 MG/100 ML VIAL IV SCH ×3 (05:10→05:59)
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
[2018-11-03] MEDS ORDERED: OPTIRAY 320 125ml IV PRN (05:48)
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
[2018-11-03] MEDS ORDERED: PROPOFOL 1,000 MG/100 ML VIAL IV SCH (06:57)
[2018-11-03] MEDS ORDERED: ICU PROTOCOL FOR HYPERGLYCEMIA PRN (06:57)
[2018-11-03] MEDS ORDERED: fentaNYL citrate 100 MCG/2 ML VIAL IV PRN (06:57)
[2018-11-03] MEDS ORDERED: ACETAMINOPHEN 650 MG SUPP PR PRN (06:57)
[2018-11-03] MEDS ORDERED: SODIUM CHLORIDE 0.9% 500 ML IV SCH (06:57)
--- NOTE | 2018-11-03 07:08 | CT Scan Report ---
CT ANGIOGRAPHY OF THE CHEST, PULMONARY EMBOLUS PROTOCOL CLINICAL HISTORY: Respiratory distress. COMPARISON STUDY: Chest CT May 06, 2018. Chest radiograph November 03, 2018. TECHNIQUE: Following IV administration of 90 mL of Optiray-320, helical axial images of the chest wer e obtained utilizing the pulmonary embolus protocol. Maximal intensity projections and sagittal and coronal reformats were viewed on an independent 3D workstation. IV contrast was administered without complication. Automated exposure control was utilized for the study. A dose lowering technique was utilized adhering to the principles of ALARA. CT DOSE: 345.57 mGy.cm FINDINGS: Endotracheal tube is satisfactorily positioned. There is no pulmonary embolus. There is no evidence for thoracic aortic dissection. The size of the heart is normal. No pericardial effusion is noted. Secretions within the airways are noted. Prominent AP window lymph node is probably benign. S evere emphysema is noted. Trace right pleural effusion is noted. Multifocal airspace opacities within the lungs are noted. These are most confluent within the right lower lobe. Bony thorax and upper abd omen are unremarkable. IMPRESSION: 1. No pulmonary emboli identified. 2. Multifocal bilateral airspace opacities which favor pneumonia. Pulmonary edema could appear simila r although is considered less likely. Trace right pleural effusion. 3. Severe emphysema. Electronically signed by: Glenn Carrasquillo M.D. 11/03/2018 7:07 AM
--- NOTE | 2018-11-03 07:25 | XRay Report ---
XR chest 1V portable CLINICAL HISTORY: tube placement COMPARISON STUDY: Chest radiograph November 03, 2018 at 2:41 AM. FINDINGS: Tip of endotracheal tube is 7.8 cm above the gina. There is no pneumothorax or pleural ef fusion. There are severe emphysema. Bilateral airspace opacities are noted. Cardiomediastinal silhoue tte is normal. IMPRESSION: 1. Satisfactory positioning of the endotracheal tube. 2. Bilateral airspace opacities which favor pneumonia. Pulmonary edema could appear similar but is co nsidered less likely. 3. Severe emphysema. Electronically signed by: Glenn Carrasquillo M.D. 11/03/2018 7:24 AM
[2018-11-03] MEDS: ALBUT/IPRATROP 3MG/0.5MG NEB 3 ML VIAL INH SCH ×3 (07:58→19:40)
--- NOTE | 2018-11-03 08:19 | XRay Report ---
XR chest 1V portable CLINICAL HISTORY: sob COMPARISON STUDY: Chest radiograph October 16, 2018. FINDINGS: There is severe emphysema. No pneumothorax or pleural effusion is noted. Multifocal bilater al airspace opacities have developed since chest radiograph October 16, 2018. Cardiac size is normal. Mediastinal contours are normal. IMPRESSION: 1. Interval development of multifocal bilateral airspace opacities which favor pneumonia. Pulmonary e gigner could appear similar although is considered less likely. 2. Severe emphysema. Electronically signed by: Glenn Carrasquillo M.D. 11/03/2018 8:17 AM
[2018-11-03] MEDS: ENOXAPARIN INJ 40 MG/0.4 ML SYR SQ SCH (08:25)
[2018-11-03] MEDS: methylPREDNISolone 40 MG in SYRINGE 0 ML IV SCH ×3 (08:26→21:12)
[2018-11-03] MEDS: FAMOTIDINE 20 MG in SYRINGE 3 ML IV SCH ×2 (08:28→21:12)
[2018-11-03] MEDS ORDERED: SUCCINYLCHOLINE CHLORIDE 20 MG/ML 10 ML VIAL IV ONE (09:29)
[2018-11-03] MEDS ORDERED: ETOMIDATE 2 MG/ML 20 ML VIAL IV ONE (09:29)
[2018-11-03] MEDS: MIDAZOLAM HCL 125 MG/250 ML BAG IV SCH (10:08)
--- NOTE | 2018-11-03 10:38 | Pharmacy Report ---
Pharmacy Abx Initial Consult - Date of Service November 03, 2018 - Pharmacy Dosing Scope Date of Consult: 11/03/18 Consultation requested by: Dr. Duron Pharmacy is consulted to initiate vancomycin IV dosing therapy, order appropriate labs and adjust drug dose/frequency. - Subjective The patient is a 67 year old M admitted on 11/03/18 06:19. - Objective Height: 5 ft 10 in Weight: 59.5 kg Vital Signs (Past 12hrs): Vital Signs Temp Pulse Pulse Resp BP BP Pulse Ox 11/03/18 08:45 88 97 11/03/18 08:30 87 98 11/03/18 08:15 85 98 11/03/18 08:12 84 99/61 L 96 11/03/18 08:00 82 76/52 L 94 11/03/18 07:45 84 95 11/03/18 07:30 82 97 11/03/18 07:18 37.5 C 81 20 100/55 L 97 11/03/18 07:15 84 97 11/03/18 07:10 85 100/55 L 97 11/03/18 07:00 87 20 93 11/03/18 06:30 86 21 121/70 97 11/03/18 06:15 87 20 105/59 L 97 11/03/18 06:05 88 18 113/68 97 11/03/18 06:00 88 20 109/66 97 11/03/18 05:54 88 18 102/65 96 11/03/18 05:50 88 20 95 11/03/18 05:15 88 20 96 11/03/18 05:07 95 11/03/18 05:00 96 H 38 H 135/75 94 11/03/18 04:45 100 H 24 92 11/03/18 04:34 30 H 135/79 92 11/03/18 04:00 106 H 38 H 142/74 H 92 11/03/18 03:55 107 H 37 H 149/85 H 92 11/03/18 03:50 109 H 29 H 151/87 H 93 11/03/18 03:45 105 H 33 H 135/84 96 11/03/18 03:40 106 H 38 H 148/91 H 96 11/03/18 03:35 106 H 37 H 150/89 H 97 11/03/18 03:30 106 H 35 H 146/85 H 97 11/03/18 03:25 107 H 37 H 159/85 H 97 11/03/18 03:20 107 H 35 H 151/93 H 97 11/03/18 03:15 108 H 35 H 151/85 H 97 11/03/18 03:10 109 H 37 H 154/95 H 96 11/03/18 03:05 107 H 34 H 155/87 H 96 11/03/18 03:00 113 H 114 H 37 H 166/93 H 96 11/03/18 02:58 114 H 30 H 94 11/03/18 02:57 115 H 35 H 118/86 94 11/03/18 02:56 116 H 118/86 92 11/03/18 02:50 111 H 29 H 155/84 H 92 11/03/18 02:45 111 H 32 H 147/88 H 91 11/03/18 02:40 112 H 40 H 149/79 H 92 11/03/18 02:30 112 H 33 H 159/86 H 74 L Lab Results (24hrs): Laboratory Tests (24 Hours) 11/03/18 11/03/18 11/03/18 02:40 02:40 02:40 WBC 4.55 L Neut # (Auto) 3.36 Creatinine 0.55 L Est Cr Clr Drug Dosing 123.5 Procalcitonin 1.13 H Micro Results: 11/03/18 03:52 Aerobic Blood Culture - Pending Blood Anaerobic Blood Culture - Pending 11/03/18 03:33 Aerobic Blood Culture - Pending Blood Anaerobic Blood Culture - Pending - Risk Factors for Resistance * Hospitalization for 48 hours or more within the past 90 days * Antimicrobial use within the last 90 days - Assessment & Plan Assessment * 67 year old M who presented to [facility] with cough and SOB * PMH includes end stage COPD for which the pt uses chronic home O2 * CXR consistent with PNA * Given patient's recent hospitalization/completion of antibiotics for pneumonia, we are treating as HCAP * MRSA nasal swab negative; Blood cultures obtained and pending * Pt on triple therapy with azithromycin x2 days, cefepime, and vancomycin Plan Vancomycin IV * Estimated PK Parameters: Vd 0.7 L/kg, Arturo 0.083 hr-1, t1/2 8 hr * Loading dose: 1250 mg (20 mg/kg) * Maintenance dose: 1000 mg IV (16.8 mg/kg) every 10 hours * Goal trough level: 15 to 20 mcg/mL * Trough level ordered for 11/04/18 at 1730 Cefepime * 2g IV q12h * Not a pharmacy consult but would recommend q8h dosing based on pt's pulmonary history and CrCl >120 ml/min Pharmacy will continue to follow and will adjust dose/frequency as necessary. Thank you.
--- NOTE | 2018-11-03 10:46 | Procedure Note ---
Procedure Note Date of Service November 03, 2018 Procedure date: Noted above Procedure: Radial artery cannulation Pre-procedure Diagnosis: Need for invasive monitoring, frequent blood draws Post-procedure Diagnosis: same as above Prior to Procedure: Informed Consent: The risks, benefits, indications, potential complications, and alternatives were explained to the patient's via telephone and informed consent obtained. Attending Staff: Nena Díaz DO Skin Prep: Chlorhexidine Anesthesia: 3 mL 1% lidocaine without epinephrine The identity of the patient was confirmed and a bedside time out was performed. Description of Procedure: After sterile prep and sterile drape utilizing standard sterile technique the superficial skin of the right radial artery was anesthetized. The target artery was identified via dynamic ultrasound guidance and entered with a 20-gauge arrow Angiocath. Pulsatile bright red blood return was noted. Via modified Seldinger technique the self-contained guidewire was advanced and the Angiocath advanced over the guidewire. The guidewire was removed and brisk arterial blood return was noted. The pressure monitor was connected, and the arterial line was secured via commercial securement device. A sterile dressing was then applied. Complications: None Estimated blood loss: Trace Patient tolerated the procedure well. Procedure Date: November 03, 2018 Procedure: Procedural Ultrasound Indication: Arterial access for invasive monitoring Attending: Nena Díaz DO Artery visualized: Yes Pulsatility of artery: Yes Artery patent: Yes Line confirmed in artery with ultrasound: Yes Impression: Successful arterial cannulation Images obtained are saved for permanent record Coding CPT Codes Tubes, Drains, and Vasc Access - Tubes, Drains, and Vasc Access: Insertion Catheter, Artery ([id number]) Tubes, Drains, and Vasc Access - Tubes, Drains, and Vasc Access: Ultrasound Guidance For Vascular ([id number])
--- NOTE | 2018-11-03 11:26 | Procedure Note ---
Procedure Note Date of Service November 03, 2018 Procedure date: Noted above Procedure: fiberoptic bronchoscopy Pre-procedure indication: Pulmonary infiltrate Post-procedure Diagnosis: same as above Prior to Procedure: Informed Consent: The risks, benefits, indications, potential complications, and alternatives were explained to the patient's via telephone and informed consent obtained. Attending Staff: Nena Díaz DO Resident/APC: Not applicable Skin Prep: Not applicable Anesthesia: Continuous infusion The identity of the patient was confirmed and a bedside time out was performed. Description of Procedure: Fiberoptic bronchoscopy was performed via endotracheal tube. Bronchioalveolar lavage right middle lobe was performed. Findings included: Thick creamy white-yellowish secretions through the main proximal airways extending down into all lobes. Complications: None Specimens: Bronchial washings sent for culture and Gram stain, cytology, fungal elements, and AFB stain and culture. Estimated blood loss: Zero Coding CPT Codes Pulmonary/Thoracic - Pulmonary and Thoracic: Dx bronchoscopy/wash ([id number])
[2018-11-03 11:57] LABS: iSTAT Art Bld Gas pCO2 Correct 75 mmHg (35-46); iSTAT Art Bld Gas pH Corrected 7.239 (7.35-7.45); iSTAT Arterial Blood Gas HCO3 32 meg/L (19-24); iSTAT Arterial Blood Gas pCO2 73 mmHg (35-46); iSTAT Arterial Blood Gas pH 7.25 (7.35-7.45); iSTAT Arterial Blood Gas pO2 143 mmHg (80-95); iSTAT Arterial Blood Gas pO2 C 146; iSTAT Carbon Dioxide 34 mEq/l (24-31); iSTAT Site Art Line
[2018-11-03] MEDS: VANCOMYCIN HCL 1,000 MG in SODIUM CHLORIDE 0.9% 250 ML IV SCH ×2 (12:03→21:13)
[2018-11-03 12:34] LABS: Influenza A virus by PCR Neg for Influ A (Neg); Influenza B virus by PCR Neg for Influ B (Neg)
--- NOTE | 2018-11-03 12:34 | XRay Report ---
[facility] CLINICAL HISTORY: Coresafe COMPARISON STUDY: CT of the abdomen and pelvis June 18, 2018. FINDINGS: Emphysema and airspace opacities are noted within visualized portions of the lungs. Bifurca cindy aortoiliac stent graft is noted. The bowel gas pattern is normal. Tip of Coresafe is within the g astric fundus. IMPRESSION: Tip of Coresafe within the gastric fundus. Electronically signed by: Glenn Carrasquillo M.D. 11/03/2018 12:33 PM
[2018-11-03] MEDS: PEPTAMEN INTENSE VHP 1.0 CAL 1,000 ML BAG GT SCH (12:48)
[2018-11-03 13:25] LABS: Fluid Mono/Macrophage 4 %; Lymphocyte Body Fluid Man 1 %; Neutrophil Body Fluid Man 95 %
[2018-11-03] MEDS: CEFEPIME 2,000 MG in SYRINGE 7.5 ML IV SCH (15:20)
--- NOTE | 2018-11-03 15:34 | Progress Note ---
Date of Service November 03, 2018 Assessment & Plan (1) Respiratory failure: PM update: 67-year-old male with a history of COPD, tobacco abuse, recent admission for COPD exacerbation pneumonia presents in respiratory failure. Following along with ICU team. Current management plan is mechanical ventilation, IV steroids, IV antibioticsincluding azithromycin, cefepime, vancomycin. CODE STATUS changed to DNR/DNI, consulting palliative. I saw the patient at bedside this morningthe patient was intubated/sedated, trachea is midline, breath sounds heard throughout lung verma Chronicity: unspecified Respiratory failure complication: hypoxia Qualified Code(s): J96.91 - Respiratory failure, unspecified with hypoxia (2) COPD exacerbation: (3) Pneumonia: Laterality: unspecified laterality Lung location: unspecified part of lung Pneumonia type: due to unspecified organism Qualified Code(s): J18.9 - Pneumonia, unspecified organism Supervising Physician Co-Signing Physician Notes I saw the patient separately from the resident physician and confirmed mitchell portion history and physical exam. The patient was admitted earlier today and also seen and evaluated by the critical care team. Results & Data Vital Signs (Past 12 Hours) Vital Signs Temp Pulse Pulse Resp BP BP Pulse Ox 11/03/18 14:15 86 95 11/03/18 14:00 85 96/59 L 94 11/03/18 13:45 87 95 11/03/18 13:30 80 22 95 11/03/18 13:15 78 95 11/03/18 13:00 81 91/55 L 95 11/03/18 12:45 80 94 11/03/18 12:30 85 93 11/03/18 12:15 87 93 11/03/18 12:00 88 96/57 L 94 11/03/18 11:45 89 96 11/03/18 11:30 89 97 11/03/18 11:15 83 100 11/03/18 11:10 79 20 96 11/03/18 11:00 82 80/55 L 95 11/03/18 10:45 79 94 11/03/18 10:43 81 69/48 L 94 11/03/18 10:30 82 96 11/03/18 10:15 83 97 11/03/18 10:00 84 94/58 L 96 11/03/18 09:45 83 97 11/03/18 09:30 83 97 11/03/18 09:15 85 96 11/03/18 09:00 85 93/56 L 97 11/03/18 08:45 88 97 11/03/18 08:30 87 98 11/03/18 08:15 85 98 11/03/18 08:12 84 99/61 L 96 11/03/18 08:00 82 76/52 L 94 11/03/18 07:45 84 95 11/03/18 07:30 82 97 11/03/18 07:18 37.5 C 81 20 100/55 L 97 11/03/18 07:15 84 97 11/03/18 07:10 85 100/55 L 97 11/03/18 07:00 87 20 93 11/03/18 06:30 86 21 121/70 97 11/03/18 06:15 87 20 105/59 L 97 11/03/18 06:05 88 18 113/68 97 11/03/18 06:00 88 20 109/66 97 11/03/18 05:54 88 18 102/65 96 11/03/18 05:50 88 20 95 11/03/18 05:15 88 20 96 11/03/18 05:07 95 11/03/18 05:00 96 H 38 H 135/75 94 11/03/18 04:45 100 H 24 92 11/03/18 04:34 30 H 135/79 92 11/03/18 04:00 106 H 38 H 142/74 H 92 11/03/18 03:55 107 H 37 H 149/85 H 92 11/03/18 03:50 109 H 29 H 151/87 H 93 11/03/18 03:45 105 H 33 H 135/84 96 11/03/18 03:40 106 H 38 H 148/91 H 96 11/03/18 03:35 106 H 37 H 150/89 H 97 11/03/18 03:30 106 H 35 H 146/85 H 97 PG Care Time/CCT Total # of Minutes Spent Total Time Spent with Patient: Total time spent is greater than 50% in coordinat ion of care (as documented) at patient's floor/unit and/or counseling patient:
[2018-11-04] MEDS: ALBUT/IPRATROP 3MG/0.5MG NEB 3 ML VIAL INH SCH ×4 (01:00→19:35)
[2018-11-04] MEDS: fentaNYL citrate 100 MCG/2 ML VIAL IV PRN ×3 (01:37→22:05)
[2018-11-04] MEDS: methylPREDNISolone 40 MG in SYRINGE 0 ML IV SCH ×3 (01:42→20:13)
[2018-11-04] MEDS: SODIUM CHLORIDE 0.9% 1000ML 1,000 ML IV SCH (01:44)
[2018-11-04] MEDS: CEFEPIME 2,000 MG in SYRINGE 7.5 ML IV SCH ×2 (03:56→16:00)
[2018-11-04 04:46] LABS: Hematocrit (blood only) 26.6 % (42-52); Hemoglobin 8.4 g/dL (14.0-18.0); Mean Corpuscular Hemoglobin 30.1 pg (25-34); Mean Corpuscular Hgb Conc 31.6 g/dL (32-36); Mean Corpuscular Volume 95.3 fL (80-100); Mean Platelet Volume 9.5 fL (7.4-10.4); Platelet Count 111 K/uL (130-400); RDW Standard Deviation 52.5 fL (36.4-46.3); Red Blood Count 2.79 M/uL (4.7-6.1); White Blood Count 3.68 K/uL (4.8-10.8)
[2018-11-04 05:16] LABS: BUN Creatinine Ratio 87.4 (10-20); Calcium 7.4 mg/dl (8.5-10.1); Creatinine Clr Calc Pharmacy 147.6 ml/min; Est GFR (African American) 141.6; Est GFR (Non-African American) 122.2; Magnesium 2.4 mg/dl (1.8-2.4); Phosphorus 2.8 mg/dl (2.5-4.9)
[2018-11-04 05:32] LABS: iSTAT Art Bld Gas pCO2 Correct 51 mmHg (35-46); iSTAT Art Bld Gas pH Corrected 7.357 (7.35-7.45); iSTAT Arterial Blood Gas HCO3 29 meg/L (19-24); iSTAT Arterial Blood Gas pCO2 52 mmHg (35-46); iSTAT Arterial Blood Gas pH 7.35 (7.35-7.45); iSTAT Arterial Blood Gas pO2 72 mmHg (80-95); iSTAT Arterial Blood Gas pO2 C 70; iSTAT Carbon Dioxide 30 mEq/l (24-31); iSTAT Site Art Line
[2018-11-04 05:41] LABS: Dohle Bodies 1+; Immature Granulocytes # (auto) 0.02 K/uL (0.00-0.02); Immature Granulocytes % (auto) 0.5 %; Lymphocytes # (auto) 0.22 K/uL (1.2-3.4); Monocytes # (auto) 0.31 K/uL (0.11-0.59); Monocytes % (auto) 8.4 %; Neutrophils # (auto) 3.13 K/uL (1.4-6.5); Neutrophils % (auto) 85.1 %; Toxic Granulation 2+
[2018-11-04] MEDS ORDERED: AZITHROMYCIN 500 MG in DEXTROSE 5% 250 ML IV ONE (07:00)
[2018-11-04] MEDS: ENOXAPARIN INJ 40 MG/0.4 ML SYR SQ SCH (07:58)
[2018-11-04] MEDS: FAMOTIDINE 20 MG in SYRINGE 3 ML IV SCH ×2 (07:59→20:12)
[2018-11-04] MEDS: VANCOMYCIN HCL 1,000 MG in SODIUM CHLORIDE 0.9% 250 ML IV SCH (07:59)
--- NOTE | 2018-11-04 08:09 | Emergency Department Note ---
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 Sat 90.0 90.0 (90-95) % Sodium (136-145) mmol/L Potassium (3.5-5.1) mmol/L Chloride (98-107) mmol/L Carbon Dioxide (21-32) mmol/L Anion Gap (3-11) BUN (7-18) mg/dl Creatinine (0.6-1.4) mg/dl Est Cr Clr Drug Dosing ml/min Est GFR ( Amer) Est GFR (Non-Af Amer) BUN/Creatinine Ratio (10-20) Glucose (70-99) mg/dl POC Lactic Acid Lc (0.90-1.70) mmol/L Calcium (8.5-10.1) mg/dl Magnesium (1.8-2.4) mg/dl Total Bilirubin (0.2-1) mg/dl AST (15-37) U/L ALT (12-78) U/L Alkaline Phosphatase (45-117) U/L Troponin I (0-0.045) ng/ml NT-Pro-B Natriuret Pep (0-900) pg/ml Total Protein (6.4-8.2) gm/dl Albumin (3.4-5.0) gm/dl Globulin (2.5-4.0) gm/dl Albumin/Globulin Ratio (0.9-2) Lipase (73-393) U/L Procalcitonin (0-0.5) ng/ml Imaging Data My Impression: Chest X-Ray 1 View Portable Stat: No cardiomegaly. No effusions. Multiple scattered infiltrates. Questionable chronic fibrotic changes. No acute pulmonary edema. Repeat Chest X-Ray: ET tube in place. No other change from prior. Radiologist's Impression: Radiology results as stated below per my review and the radiologist's interpretation: CTA CHEST: No evidence of pulmonary embolism. Extensive centrilobular emphysematous changes with hyperexpansion and bullous disease, most notable involving the left anterior basal segment and upper lobes. Interlobular septal thickening noted diffusely. Findings suggest pulmonary edema pattern. In addition, there are subsegmental consolidative changes involving the dependent aspect of the right lower lobe. This may represent asymmetric dependent edema. However, infection is also a consideration. Subsegmental changes in the posterior left lower lobe and left upper lobe are presumed dependent atelectasis. The endotracheal tube is identified with the tip proximally 5.3 cm from the gina. The thoracic aorta and cardiac chambers demonstrate no significant acute abnormality. Pericardial effusion. Prominent AP window lymph node measuring 12 mm short axis and left hilar lymph nodes are presumed reactive. Radiologist: Jarod Quigley MD Study ready at 05:55 and initial results transmitted at 06:24 ECG Data Attestation: I personally reviewed and interpreted this ECG as follows: Indication: SOB/dyspnea Rate (beats per minute): 117 Rhythm: sinus tachycardia Findings: + other (normal intervals, normal axis) and + PAC; no acute ischemic change Blood Pressure Blood Pressure Findings: Normal blood pressure Blood Pressure Disposition: further management by hospitalist MDM Narrative Patient presented with significant respiratory distress and long-standing history COPD as well as recent hospitalization. Patient initially placed on BiPAP with improvement of oxygenation, however patient found to be significant Christian hypercarbic. Adjustments in BiPAP made while other treatments were also being started and patient monitored for an hour. At that time a repeat blood gas was drawn which did not show any significant improvement. At this time I began to speak with the patient's family regarding possible need for additional aggressive intervention. Patient was started on IV antibiotics to cover for possible healthcare associated pneumonia given the recent admission. Patient's chest x-ray appeared consistent with a multifocal pneumonia. Other lab abnormalities were noted. I do not feel patient was stable at this time to go to CT for angiography of the chest. After additional discussion and another ABG, decision made with family's permission to intubate the patient. Patient intubated successfully. Repeat chest x-ray confirmed ET tube placement. Patient then sent for CT angiography of the chest. Case discussed with hospitalist as well as software asset management analyst for additional inpatient management. Impression & Plan Respiratory failure, COPD exacerbation, Pneumonia, Anemia, Thrombocytopenia Critical Care Time Critical Care Time: Yes Total Critical Care Time: 90 I have personally spent 90 minutes of critical care time in the direct management of this patient. This includes bedside care, interpretation of d iagnostic studies, and testing, discussion with consultants, patient, and family members, and other required patient management activities. This 90 minutes is in excess of all separately billable procedures. Discharge Plan Visit Data *Final* Discharge Date/Time: 11/03/18 06:36 Chief Complaint: Shortness of Breath/Dyspnea Stated Complaint: breathing difficulty ED Provider: Carol Martini Discharge Problem: Respiratory failure, COPD exacerbation, Pneumonia, Anemia, Thrombocytopenia Patient Disposition: Admitted As Inpatient Condition: Critical Discharge Instructions Interventions: ED Discharge Assessment Last Done: 11/03/18 06:36 The scribe's documentation has been prepared under my direction and personally reviewed by me in its entirety. I confirm that the note above accurately reflects all work, treatment, procedures, and medical decision making performed by me.
[2018-11-04] MEDS: fentaNYL DRIP 1,250 MCG/250 ML BAG IV SCH (09:24)
[2018-11-04] MEDS: MIDAZOLAM HCL 125 MG/250 ML BAG IV SCH (10:15)
[2018-11-04 10:34] LABS: Hematocrit (blood only) 27.1 % (42-52); Hemoglobin 8.5 g/dL (14.0-18.0)
[2018-11-04 11:04] LABS: Ferritin 1021.9 ng/ml (8-388)
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
--- NOTE | 2018-11-04 12:17 | Critical Care Progress Note ---
Date of Service November 04, 2018 Assessment & Plan (1) Admitted to intensive care unit: Reason Critically Ill: 67-year-old male here for acute on chronic COPD exacerbation. 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 Cardiac: -Hemodynamically stable Respiratory: Acute on chronic COPD exacerbation Patient is a lengthy history of smoking, and is now entered end-stage COPD. Normally he is on chronic oxygen 3 L at home. Family reports patient has recently completed antibiotic and steroid taper from last hospital admission, family reports recently the patient has had worsening mental status and increased confusion. The patient is also experienced difficulty maintaining oxygen saturation as he is self titrated himself up to 5 L of oxygen. When EMS arrived to the patient's house he was satting 70% on 5 L O2, and nonrebreather mask was placed and the patient was emergently transferred to [facility]. Upon arrival he was evaluated, and the emergency department attendings did everything possible to avoid intubation. However the patient's mental status continued to decline, and his ABG became increasingly worse. After javy conversation with the family about intubation and how the patient would likely be difficult to wean, the patient was subsequently intubated. The ICU team was consulted for transfer to the ICU. Currently intubated, DC'd Versed started fentanyl for pain management and sedation -Sedation vacations ordered IV Solu-Medrol 40 mix every 12 hours Duo nebs every 6 hours Albuterol nebs every 2 as needed -Palliative consult placed -Per family patient would not want prolonged intubation or tracheostomy, will continue with 48 hours of aggressive therapy and reassess at that point. -Patient is now DNR HCAP Pneumonia Patient's recent clinical history of worsening ability to oxygenate, poor mentation, and chronic cough are all indicative of pneumonia. It is highly unusual that the patient would develop a pneumonia imaging upon admission demonstrated diffuse groundglass opacities throughout all lung verma highly suggestive of pneumonia, official read is pending. There are no air-fluid levels present. Physical exam does not demonstrate significant wheezes, rales, rhonchi however. It is difficult to appreciate secondary to intubation. Given patient's frequent hospitalizations, and recent completion of antibiotics, will be treating this is H CAP. Patient does have an elevated procalcitonin to 1.13 lactate depressed to 0.58. However the patient does not have a white count currently, no fever, no chills and hypertensive on admission. -Blood cultures obtained follow-up results. White count trending down -Bronc washings demonstrate probable Haemophilus species -Trend CBC -Modified antibiotic therapy -DC'd azithromycin -Continue cefepime -dc'd Vancomycin -Else as above Acute on chronic respiratory failure with hypoxia and hypercapnia See above GI: -N.p.o. RENAL/LYTES: -No significant electrolyte derangement. -Replace lytes as needed. -BUN trending up however creatinine stable ?Secondary to tube feedings : - No concerns at this time. boyer in place ENDO: -No concerns at present HEME: Hemoglobin has been trending downward with no clear etiology 11.1 on admission now stable at 8.5 iron labs demonstrate decrease iron decreased TIBC decreased transferrin and extremely elevated ferritin with a normal MCV this is likely indicative of an inflammatory marker. In the remainder of his iron labs were depressed likely from anemia of chronic disease versus acute anemia. Unclear as to why his hemoglobin dropped so profoundly we will continue to trend ID: HCAP pneumonia -See above -Monitor fever curve. INTEGUMENTARY: -No acute concerns at present LINES/IV ACCESS: -PIVs x 3 intact. DVT PROPHYLAXIS: -SCDs and Lovenox 40 mg every 6 hours Dispo: ICU Thank you for allowing us to be part of this patient's care. Please refer to Dr. Moreno's documentation for any further recommendations. (2) Acute on chronic respiratory failure with hypoxia and hypercapnia: (3) Anemia: (4) Acute pneumonia: (5) Moderate protein-energy malnutrition: (6) Respiratory failure: Supervising Physician Co-Signing Physician Notes 67-year-old gentleman with essentially end-stage COPD on chronic oxygen. FEV1 was 11% predicted in 2016. We are treating him for multifocal pneumonia. He underwent a bronchoscopy yesterday and results are pending for the bronchoscopy. He is currently on cefepime and azithromycin. hIS mrsa screen was negative and thus vancomycin has been discontinued. His procalcitonin was elevated to 1.13 on the 15. We will recheck a procalcitonin tomorrow to make sure we are heading in the right direction. He continues to require ventilatory support. I reduced his tidal volumes to 450 mL's. He will need a repeat blood gas tomorrow since he was borderline acidotic from a respiratory standpoint today. We have stopped the Versed. We will continue the fentanyl infusion and titrate upwards as needed. Should he needed sedative, we can use Precedex. I had a lengthy discussion with the family regarding his goals of care. Palliative care was there to assist in the conversation. The family indicated that he would not want to be on a ventilator for prolonged period of time. We are in agreement that we will go ahead with a time-limited trial of 48 to 72 hours and if he is not able to be extubated, we will likely transition towards a more palliative approach. If he does get extubated, he will need to be extubated to a BiPAP. He is at very high risk for reintubation. Of note, his hemoglobin is trending down and this may be related to hemodilution. His repeat CBC at 10:26AM appears to have stabilized. I have stopped his Lovenox for today and will continue DVT prophylaxis with sequential compression devices alone. His overall prognosis is very poor. Subjective Unable to obtain history secondary to patient's intubated status. Per nursing patient did well overnight, no acute concerns or events. Patient is making urine, stooling, tolerating tube feeds, sedated. No acute concerns at present all questions answered. Physical Exam Physical Exam: General: Elderly gentleman pale appearing, cachectic, intubated HEENT: Normocephalic atraumatic Neck: Normal to visual inspection, trachea midline, did not appreciate significant JVD Cardiac:Regular rate and rhythm, extremities warm well perfused, normal S1, normal S2, did not appreciate any gallops, negative pedal edema, Respiratory: Difficult exam secondary to intubation, ET tube in place, otherwise clear to auscultation bilaterally GI: Bowel sounds present, nondistended MSK: Deferred Skin: Normal visual inspection Neuro: Sedated Psych: Sedated Results & Data Vital Signs (Past 12 Hours) Vital Signs Pulse Resp BP Pulse Ox 11/04/18 07:20 73 22 100 11/04/18 06:00 68 118/65 98 11/04/18 05:45 69 97 11/04/18 05:30 71 97 11/04/18 05:15 72 11/04/18 05:05 76 122/66 100 11/04/18 05:00 78 96 11/04/18 04:58 80 22 96 11/04/18 04:45 74 100 11/04/18 04:30 75 95 11/04/18 04:15 78 96 11/04/18 04:00 78 132/71 100 11/04/18 03:45 74 97 11/04/18 03:30 74 96 11/04/18 03:15 75 96 11/04/18 03:00 77 114/59 L 95 11/04/18 02:30 79 95 11/04/18 02:00 81 104/56 L 96 11/04/18 01:30 87 96 11/04/18 01:15 82 96 11/04/18 01:00 74 22 102/59 L 94 11/04/18 00:45 75 94 11/04/18 00:30 75 94 11/04/18 00:15 75 94 11/04/18 00:00 77 95/61 L 93 11/03/18 23:45 76 96 11/03/18 23:30 78 98 11/03/18 23:15 76 95 11/03/18 23:00 81 98/56 L 94 11/03/18 22:45 77 93 11/03/18 22:30 80 93 11/03/18 22:00 82 97/71 L 95 11/03/18 21:55 82 22 97 11/03/18 21:30 82 96 11/03/18 21:00 88 97/59 L 96 Laboratory Results 11/04/18 11/04/18 11/04/18 Range/Units 11:57 10:26 10:26 WBC (4.8-10.8) K/uL RBC (4.7-6.1) M/uL Hgb (14.0-18.0) g/dL Hct (42-52) % MCV (80-100) fL MCH (25-34) pg MCHC (32-36) g/dL RDW Std Deviation (36.4-46.3) fL RDW Coeff of Cherrie (11.5-14.5) % Plt Count (130-400) K/uL MPV (7.4-10.4) fL Immature Gran % (Auto) % Neut % (Auto) % Lymph % (Auto) % Camp % (Auto) % Eos % (Auto) % Baso % (Auto) % Immature Gran # (Auto) (0.00-0.02) K/uL Neut # (Auto) (1.4-6.5) K/uL Lymph # (Auto) (1.2-3.4) K/uL Camp # (Auto) (0.11-0.59) K/uL Eos # (Auto) (0-0.5) K/uL Baso # (Auto) (0-0.2) K/uL Toxic Granulation Dohle Bodies Sample Site POC pH (7.35-7.45) POC pCO2 (35-46) mmHg POC pO2 (80-95) mmHg POC HCO3 (19-24) ismael/L POC Total CO2 (24-31) mEq/l POC Base Excess (-9-1.8) ismael/L ABG pH (Temp Correct) (7.35-7.45) ABG pCO2 (Temp Corrct (35-46) mmHg POC ABG pO2 at Pt Temp POC ABG O2 Sat (90-95) % [place] Test O2 Delivery Device POC O2 Rate Minute Ventilation Tidal Volume PEEP Sodium (136-145) mmol/L Potassium (3.5-5.1) mmol/L Chloride (98-107) mmol/L Carbon Dioxide (21-32) mmol/L Anion Gap (3-11) BUN (7-18) mg/dl Creatinine (0.6-1.4) mg/dl Est Cr Clr Drug Dosing ml/min Est GFR ( Amer) Est GFR (Non-Af Amer) BUN/Creatinine Ratio (10-20) Glucose (70-99) mg/dl POC Glucose 127 H (70-99) Calcium (8.5-10.1) mg/dl Phosphorus (2.5-4.9) mg/dl Magnesium (1.8-2.4) mg/dl Iron 13 L (35-175) mcg/dl TIBC 116 L (250-450) mcg/dl Transferrin 89 L (200-360) mg/dl Ferritin 1021.9 H (8-388) ng/ml 11/04/18 11/04/18 11/04/18 Range/Units 10:26 05:18 04:39 WBC (4.8-10.8) K/uL RBC (4.7-6.1) M/uL Hgb 8.5 L (14.0-18.0) g/dL Hct 27.1 L (42-52) % MCV (80-100) fL MCH (25-34) pg MCHC (32-36) g/dL RDW Std Deviation (36.4-46.3) fL RDW Coeff of Cherrie (11.5-14.5) % Plt Count (130-400) K/uL MPV (7.4-10.4) fL Immature Gran % (Auto) % Neut % (Auto) % Lymph % (Auto) % Camp % (Auto) % Eos % (Auto) % Baso % (Auto) % Immature Gran # (Auto) (0.00-0.02) K/uL Neut # (Auto) (1.4-6.5) K/uL Lymph # (Auto) (1.2-3.4) K/uL Camp # (Auto) (0.11-0.59) K/uL Eos # (Auto) (0-0.5) K/uL Baso # (Auto) (0-0.2) K/uL Toxic Granulation Dohle Bodies Sample Site Art Line POC pH 7.35 (7.35-7.45) POC pCO2 52 H (35-46) mmHg POC pO2 72 L (80-95) mmHg POC HCO3 29 H (19-24) ismael/L POC Total CO2 30 (24-31) mEq/l POC Base Excess 3.0 H (-9-1.8) ismael/L ABG pH (Temp Correct) 7.357 (7.35-7.45) ABG pCO2 (Temp Corrct 51 H (35-46) mmHg POC ABG pO2 at Pt Temp 70 POC ABG O2 Sat 93.0 (90-95) % [place] Test NA O2 Delivery Device Ventilator POC O2 Rate 22 Minute Ventilation 40 Tidal Volume 500 PEEP 5 Sodium (136-145) mmol/L Potassium (3.5-5.1) mmol/L Chloride (98-107) mmol/L Carbon Dioxide (21-32) mmol/L Anion Gap (3-11) BUN (7-18) mg/dl Creatinine (0.6-1.4) mg/dl Est Cr Clr Drug Dosing ml/min Est GFR ( Amer) Est GFR (Non-Af Amer) BUN/Creatinine Ratio (10-20) Glucose (70-99) mg/dl POC Glucose 138 H (70-99) Calcium (8.5-10.1) mg/dl Phosphorus (2.5-4.9) mg/dl Magnesium (1.8-2.4) mg/dl Iron (35-175) mcg/dl TIBC (250-450) mcg/dl Transferrin (200-360) mg/dl Ferritin (8-388) ng/ml 11/04/18 11/04/18 11/03/18 Range/Units 04:35 04:35 23:25 WBC 3.68 L (4.8-10.8) K/uL RBC 2.79 L (4.7-6.1) M/uL Hgb 8.4 L (14.0-18.0) g/dL Hct 26.6 L (42-52) % MCV 95.3 (80-100) fL MCH 30.1 (25-34) pg MCHC 31.6 L (32-36) g/dL RDW Std Deviation 52.5 H (36.4-46.3) fL RDW Coeff of Cherrie 15.0 H (11.5-14.5) % Plt Count 111 L (130-400) K/uL MPV 9.5 (7.4-10.4) fL Immature Gran % (Auto) 0.5 % Neut % (Auto) 85.1 % Lymph % (Auto) 6.0 % Camp % (Auto) 8.4 % Eos % (Auto) 0.0 % Baso % (Auto) 0.0 % Immature Gran # (Auto) 0.02 (0.00-0.02) K/uL Neut # (Auto) 3.13 (1.4-6.5) K/uL Lymph # (Auto) 0.22 L (1.2-3.4) K/uL Camp # (Auto) 0.31 (0.11-0.59) K/uL Eos # (Auto) 0.00 (0-0.5) K/uL Baso # (Auto) 0.00 (0-0.2) K/uL Toxic Granulation 2+ Dohle Bodies 1+ Sample Site POC pH (7.35-7.45) POC pCO2 (35-46) mmHg POC pO2 (80-95) mmHg POC HCO3 (19-24) ismael/L POC Total CO2 (24-31) mEq/l POC Base Excess (-9-1.8) ismael/L ABG pH (Temp Correct) (7.35-7.45) ABG pCO2 (Temp Corrct (35-46) mmHg POC ABG pO2 at Pt Temp POC ABG O2 Sat (90-95) % [place] Test O2 Delivery Device POC O2 Rate Minute Ventilation Tidal Volume PEEP Sodium 142 (136-145) mmol/L Potassium 4.0 D (3.5-5.1) mmol/L Chloride 107 (98-107) mmol/L Carbon Dioxide 32 (21-32) mmol/L Anion Gap 3.0 (3-11) BUN 36 H D (7-18) mg/dl Creatinine 0.42 L (0.6-1.4) mg/dl Est Cr Clr Drug Dosing 147.6 ml/min Est GFR ( Amer) 141.6 Est GFR (Non-Af Amer) 122.2 BUN/Creatinine Ratio 87.4 H (10-20) Glucose 134 H (70-99) mg/dl POC Glucose 142 H (70-99) Calcium 7.4 L (8.5-10.1) mg/dl Phosphorus 2.8 (2.5-4.9) mg/dl Magnesium 2.4 (1.8-2.4) mg/dl Iron (35-175) mcg/dl TIBC (250-450) mcg/dl Transferrin (200-360) mg/dl Ferritin (8-388) ng/ml Medications Administered Current Inpatient Medications Acetaminophen (Tylenol) 650 mg IA Q4H PRN PRN Reason: mild pain or fever Stop: 12/03/18 06:56 Last Admin: 11/03/18 18:39 Dose: 650 mg Documented by: Albuterol (Duoneb) 3 ml INH Q6R LITO Stop: 12/03/18 06:59 Last Admin: 11/04/18 13:06 Dose: 3 ml Documented by: Enoxaparin Sodium (Lovenox) 40 mg SQ Q24H LITO Stop: 12/03/18 07:59 Last Admin: 11/04/18 07:58 Dose: 40 mg Documented by: Fentanyl Citrate (Fentanyl Citrate) 25 mcg IV ONE PRN PRN Reason: Pain Not Controlled by Drip Stop: 11/18/18 08:50 Cefepime HCl 2,000 mg/ Syringe 20 mls @ 5.5 mls/min IV Q12H LITO; Protocol Stop: 11/10/18 15:59 Last Admin: 11/04/18 03:56 Dose: 5.5 mls/min Documented by: Famotidine 20 mg/ Syringe 5 mls @ 2.5 mls/min IV BID LITO Stop: 12/03/18 08:59 Last Admin: 11/04/18 07:59 Dose: 2.5 mls/min Documented by: Fentanyl Citrate (Fentanyl Drip) 1,250 mcg in 250 mls @ 5 mls/hr IV .Q24H [facility]ITO; Protocol Stop: 11/18/18 08:50 Last Admin: 11/04/18 09:24 Dose: 25 mcg/hr, 5 mls/hr Documented by: Methylprednisolone 40 mg/ (Syringe) 0.64 mls @ 1.5 mls/min IV Q12H [facility]ITO Stop: 12/04/18 19:59 Ioversol (Optiray 320 125ml) 90 ml IV ONCE PRN PRN Reason: Interaction Checking Stop: 11/07/18 05:47 Last Admin: 11/03/18 05:49 Dose: 90 ml Documented by: Miscellaneous (Icu Protocol For Hyperglycemia) 1 ea N/A PRN PRN; Protocol PRN Reason: Hyperglycemia Protocol Stop: 11/05/18 06:56 Nutritional Formula (Peptamen Intense Vhp 1.0 [place]) 0 ml GT UD [facility]; Protocol Stop: 12/03/18 09:08 Last Admin: 11/03/18 12:48 Dose: 1,000 ml Documented by: PG Care Time/CCT Total # of Minutes Spent Total Time Spent: 55 Total Time Spent with Patient: Total time spent is greater than 50% in coordination of care (as documented) at patient's floor/unit and/or counseling patient: 55 Critical Care Time: Yes Total Critical Care Time: 55 Resident Activity Tracking Resident Involvement: Resident Care Provided Care Provided: Adult Hospital Medicine (ICU: End stage COPD,Bilateral PNA ) (1) Anemia Anemia type: unspecified type Qualified Code(s): D64.9 - Anemia, unspecified (2) Respiratory failure Chronicity: acute on chronic Respiratory failure complication: hypoxia and hypercapnia Qualified Code(s): J96.21 - Acute and chronic respiratory failure with hypoxia; J96.22 - Acute and chronic respiratory failure with hypercapnia
--- NOTE | 2018-11-04 14:03 | Family Medicine Progress Note ---
Date of Service November 04, 2018 Assessment & Plan (1) Acute on chronic respiratory failure with hypoxia and hypercapnia: 67y/o male with known end stage COPD on chronic oxygen 3L presented to the ED with cough, SOB, and increased oxygen requirement at home. He was initially placed on BiPAP and did not improve, now intubated. HCAP, respiratory failure, intubated -initially placed on azithromycin, cefepime and vancomycin - vanc DCd given negative MRSA. -IV solumedrol, duonebs Goals of care discussion -appreciate palliative recommendations/consultation - plan for ongoing agressive treatment for 24-48h. Family have stated that pt would not have wanted prolonged intubation or trach. FEN/GI: famotidine, Peptamen OGT DVT ppx: lovenox q24h CODE STATUS: DNR/DNI as per comb machine operator discussion with pt's advocates (family) DISPO: ICU (2) COPD exacerbation: (3) Pneumonia: (4) Admitted to intensive care unit: (5) Tobacco use disorder: Supervising Physician Co-Signing Physician Notes I personally examined the patient and verified all mitchell points of history and exam, discussed case, and agree with decision making with Dr Wallace. No meaningful HPI or review of systems. No family present. ICU input greatly appreciated. Patient sedated on ventilator Vitals noted, in general sedated on ventilator breathing unlabored on the vent. No focal neuro deficits. Skin shows no rashes, pallor, icterus. Acute hypoxic respiratory failure superimposed on chronic hypoxic and hypercapnic respiratory failurerelated to healthcare associated pneumonia, coming on the heels of a COPD exacerbation -Continue current care, appreciate ongoing discussions with family by ICU and palliative team -Otherwise as above Subjective Pt is lying in bed, sedated/intubated. No family at bedside, no meaningful history given sedation. Did d/w comb machine operator and palliative team members. Review of Systems Review of Systems: Unobtainable due to reduced consciousness Physical Exam Physical Exam: Vitals noted and within normal limits GENERAL: Sedated, intubated. HENT: Normocephalic, atraumatic. ET and OGT in place. NECK: trachea midline. RESPIRATORY: Clear to auscultation. ET tube in place. CARDIAC: Regular rate, normal rhythm. Extremities warm and well perfused, 2+ radial pulses bilaterally; ABDOMEN: Soft, non-distended. Bowel sounds are normal. LOWER EXTREMITIES: Inspection of calves reveal equal size bilaterally. No discoloration. NEURO: Sedated. SKIN: Rash c/w senile purpura. No jaundice noted. Exam as done by Vonnie Wallace MD, Author'S Agent. Results & Data Vital Signs (Past 12 Hours) Vital Signs Pulse Resp BP Pulse Ox 11/04/18 13:10 80 22 99 11/04/18 12:00 66 11/04/18 10:20 66 22 100 11/04/18 09:30 67 100 11/04/18 09:15 69 100 11/04/18 09:00 69 125/69 100 11/04/18 08:45 70 100 11/04/18 08:30 71 99 11/04/18 08:15 73 100 11/04/18 08:00 74 112/64 99 11/04/18 07:45 73 100 11/04/18 07:30 72 100 11/04/18 07:20 73 22 100 11/04/18 07:15 73 99 11/04/18 07:00 72 112/63 99 11/04/18 06:45 75 98 11/04/18 06:00 68 118/65 98 11/04/18 05:45 69 97 11/04/18 05:30 71 97 11/04/18 05:15 72 11/04/18 05:05 76 122/66 100 11/04/18 05:00 78 96 11/04/18 04:58 80 22 96 11/04/18 04:45 74 100 11/04/18 04:30 75 95 11/04/18 04:15 78 96 11/04/18 04:00 78 132/71 100 11/04/18 03:45 74 97 11/04/18 03:30 74 96 11/04/18 03:15 75 96 11/04/18 03:00 77 114/59 L 95 11/04/18 02:30 79 95 11/04/18 02:00 81 104/56 L 96 Laboratory Results 11/04/18 11/04/18 11/04/18 Range/Units 11:57 10:26 10:26 WBC (4.8-10.8) K/uL RBC (4.7-6.1) M/uL Hgb (14.0-18.0) g/dL Hct (42-52) % MCV (80-100) fL MCH (25-34) pg MCHC (32-36) g/dL RDW Std Deviation (36.4-46.3) fL RDW Coeff of Cherrie (11.5-14.5) % Plt Count (130-400) K/uL MPV (7.4-10.4) fL Immature Gran % (Auto) % Neut % (Auto) % Lymph % (Auto) % [place] % (Auto) % Eos % (Auto) % Baso % (Auto) % Immature Gran # (Auto) (0.00-0.02) K/uL Neut # (Auto) (1.4-6.5) K/uL Lymph # (Auto) (1.2-3.4) K/uL [place] # (Auto) (0.11-0.59) K/uL Eos # (Auto) (0-0.5) K/uL Baso # (Auto) (0-0.2) K/uL Toxic Granulation Dohle Bodies Sample Site POC pH (7.35-7.45) POC pCO2 (35-46) mmHg POC pO2 (80-95) mmHg POC HCO3 (19-24) ismael/L POC Total CO2 (24-31) mEq/l POC Base Excess (-9-1.8) ismael/L ABG pH (Temp Correct) (7.35-7.45) ABG pCO2 (Temp Corrct (35-46) mmHg POC ABG pO2 at Pt Temp POC ABG O2 Sat (90-95) % [place] Test O2 Delivery Device POC O2 Rate Minute Ventilation Tidal Volume PEEP Sodium (136-145) mmol/L Potassium (3.5-5.1) mmol/L Chloride (98-107) mmol/L Carbon Dioxide (21-32) mmol/L Anion Gap (3-11) BUN (7-18) mg/dl Creatinine (0.6-1.4) mg/dl Est Cr Clr Drug Dosing ml/min Est GFR ( Amer) Est GFR (Non-Af Amer) BUN/Creatinine Ratio (10-20) Glucose (70-99) mg/dl POC Glucose 127 H (70-99) Calcium (8.5-10.1) mg/dl Phosphorus (2.5-4.9) mg/dl Magnesium (1.8-2.4) mg/dl Iron 13 L (35-175) mcg/dl TIBC 116 L (250-450) mcg/dl Transferrin 89 L (200-360) mg/dl Ferritin 1021.9 H (8-388) ng/ml 11/04/18 11/04/18 11/04/18 Range/Units 10:26 05:18 04:39 WBC (4.8-10.8) K/uL RBC (4.7-6.1) M/uL Hgb 8.5 L (14.0-18.0) g/dL Hct 27.1 L (42-52) % MCV (80-100) fL MCH (25-34) pg MCHC (32-36) g/dL RDW Std Deviation (36.4-46.3) fL RDW Coeff of Cherrie (11.5-14.5) % Plt Count (130-400) K/uL MPV (7.4-10.4) fL Immature Gran % (Auto) % Neut % (Auto) % Lymph % (Auto) % [place] % (Auto) % Eos % (Auto) % Baso % (Auto) % Immature Gran # (Auto) (0.00-0.02) K/uL Neut # (Auto) (1.4-6.5) K/uL Lymph # (Auto) (1.2-3.4) K/uL [place] # (Auto) (0.11-0.59) K/uL Eos # (Auto) (0-0.5) K/uL Baso # (Auto) (0-0.2) K/uL Toxic Granulation Dohle Bodies Sample Site Art Line POC pH 7.35 (7.35-7.45) POC pCO2 52 H (35-46) mmHg POC pO2 72 L (80-95) mmHg POC HCO3 29 H (19-24) ismael/L POC Total CO2 30 (24-31) mEq/l POC Base Excess 3.0 H (-9-1.8) ismael/L ABG pH (Temp Correct) 7.357 (7.35-7.45) ABG pCO2 (Temp Corrct 51 H (35-46) mmHg POC ABG pO2 at Pt Temp 70 POC ABG O2 Sat 93.0 (90-95) % [place] Test NA O2 Delivery Device Ventilator POC O2 Rate 22 Minute Ventilation 40 Tidal Volume 500 PEEP 5 Sodium (136-145) mmol/L Potassium (3.5-5.1) mmol/L Chloride (98-107) mmol/L Carbon Dioxide (21-32) mmol/L Anion Gap (3-11) BUN (7-18) mg/dl Creatinine (0.6-1.4) mg/dl Est Cr Clr Drug Dosing ml/min Est GFR ( Amer) Est GFR (Non-Af Amer) BUN/Creatinine Ratio (10-20) Glucose (70-99) mg/dl POC Glucose 138 H (70-99) Calcium (8.5-10.1) mg/dl Phosphorus (2.5-4.9) mg/dl Magnesium (1.8-2.4) mg/dl Iron (35-175) mcg/dl TIBC (250-450) mcg/dl Transferrin (200-360) mg/dl Ferritin (8-388) ng/ml 11/04/18 11/04/18 11/03/18 Range/Units 04:35 04:35 23:25 WBC 3.68 L (4.8-10.8) K/uL RBC 2.79 L (4.7-6.1) M/uL Hgb 8.4 L (14.0-18.0) g/dL Hct 26.6 L (42-52) % MCV 95.3 (80-100) fL MCH 30.1 (25-34) pg MCHC 31.6 L (32-36) g/dL RDW Std Deviation 52.5 H (36.4-46.3) fL RDW Coeff of Cherrie 15.0 H (11.5-14.5) % Plt Count 111 L (130-400) K/uL MPV 9.5 (7.4-10.4) fL Immature Gran % (Auto) 0.5 % Neut % (Auto) 85.1 % Lymph % (Auto) 6.0 % [place] % (Auto) 8.4 % Eos % (Auto) 0.0 % Baso % (Auto) 0.0 % Immature Gran # (Auto) 0.02 (0.00-0.02) K/uL Neut # (Auto) 3.13 (1.4-6.5) K/uL Lymph # (Auto) 0.22 L (1.2-3.4) K/uL [place] # (Auto) 0.31 (0.11-0.59) K/uL Eos # (Auto) 0.00 (0-0.5) K/uL Baso # (Auto) 0.00 (0-0.2) K/uL Toxic Granulation 2+ Dohle Bodies 1+ Sample Site POC pH (7.35-7.45) POC pCO2 (35-46) mmHg POC pO2 (80-95) mmHg POC HCO3 (19-24) ismael/L POC Total CO2 (24-31) mEq/l POC Base Excess (-9-1.8) ismael/L ABG pH (Temp Correct) (7.35-7.45) ABG pCO2 (Temp Corrct (35-46) mmHg POC ABG pO2 at Pt Temp POC ABG O2 Sat (90-95) % [place] Test O2 Delivery Device POC O2 Rate Minute Ventilation Tidal Volume PEEP Sodium 142 (136-145) mmol/L Potassium 4.0 D (3.5-5.1) mmol/L Chloride 107 (98-107) mmol/L Carbon Dioxide 32 (21-32) mmol/L Anion Gap 3.0 (3-11) BUN 36 H D (7-18) mg/dl Creatinine 0.42 L (0.6-1.4) mg/dl Est Cr Clr Drug Dosing 147.6 ml/min Est GFR ( Amer) 141.6 Est GFR (Non-Af Amer) 122.2 BUN/Creatinine Ratio 87.4 H (10-20) Glucose 134 H (70-99) mg/dl POC Glucose 142 H (70-99) Calcium 7.4 L (8.5-10.1) mg/dl Phosphorus 2.8 (2.5-4.9) mg/dl Magnesium 2.4 (1.8-2.4) mg/dl Iron (35-175) mcg/dl TIBC (250-450) mcg/dl Transferrin (200-360) mg/dl Ferritin (8-388) ng/ml Medications Administered Current Inpatient Medications Acetaminophen (Tylenol) 650 mg MT Q4H PRN PRN Reason: mild pain or fever Stop: 12/03/18 06:56 Last Admin: 11/03/18 18:39 Dose: 650 mg Documented by: Albuterol (Duoneb) 3 ml INH Q6R LITO Stop: 12/03/18 06:59 Last Admin: 11/04/18 13:06 Dose: 3 ml Documented by: Enoxaparin Sodium (Lovenox) 40 mg SQ Q24H LITO Stop: 12/03/18 07:59 Last Admin: 11/04/18 07:58 Dose: 40 mg Documented by: Fentanyl Citrate (Fentanyl Citrate) 25 mcg IV ONE PRN PRN Reason: Pain Not Controlled by Drip Stop: 11/18/18 08:50 Cefepime HCl 2,000 mg/ Syringe 20 mls @ 5.5 mls/min IV Q12H LITO; Protocol Stop: 11/10/18 15:59 Last Admin: 11/04/18 03:56 Dose: 5.5 mls/min Documented by: Famotidine 20 mg/ Syringe 5 mls @ 2.5 mls/min IV BID LITO Stop: 12/03/18 08:59 Last Admin: 11/04/18 07:59 Dose: 2.5 mls/min Documented by: Fentanyl Citrate (Fentanyl Drip) 1,250 mcg in 250 mls @ 5 mls/hr IV .Q24H LITO; Protocol Stop: 11/18/18 08:50 Last Admin: 11/04/18 09:24 Dose: 25 mcg/hr, 5 mls/hr Documented by: Methylprednisolone 40 mg/ (Syringe) 0.64 mls @ 1.5 mls/min IV Q12H LITO Stop: 12/04/18 19:59 Ioversol (Optiray 320 125ml) 90 ml IV ONCE PRN PRN Reason: Interaction Checking Stop: 11/07/18 05:47 Last Admin: 11/03/18 05:49 Dose: 90 ml Documented by: Miscellaneous (Icu Protocol For Hyperglycemia) 1 ea N/A PRN PRN; Protocol PRN Reason: Hyperglycemia Protocol Stop: 11/05/18 06:56 Nutritional Formula (Peptamen Intense Vhp 1.0 [place]) 0 ml GT UD LITO; Protocol Stop: 12/03/18 09:08 Last Admin: 11/03/18 12:48 Dose: 1,000 ml Documented by: PG Care Time/CCT Total # of Minutes Spent Total Time Spent with Patient: Total time spent is greater than 50% in coordination of care (as documented) at patient's floor/unit and/or counseling patient: Resident Activity Tracking Resident Involvement: Resident Care Provided Care Provided: Adult Hospital Medicine (1) Pneumonia Laterality: unspecified laterality Lung location: unspecified part of lung Pneumonia type: due to unspecified organism Qualified Code(s): J18.9 - Pneumonia, unspecified organism
[2018-11-04] MEDS: PEPTAMEN INTENSE VHP 1.0 CAL 1,000 ML BAG GT SCH (16:00)
[2018-11-04] MEDS ORDERED: VANCOMYCIN TROUGH ONE (17:30)
[2018-11-05] MEDS: fentaNYL DRIP 1,250 MCG/250 ML BAG IV SCH ×3 (00:47→23:06)
[2018-11-05] MEDS: ALBUT/IPRATROP 3MG/0.5MG NEB 3 ML VIAL INH SCH ×4 (01:15→19:05)
[2018-11-05] MEDS: CEFEPIME 2,000 MG in SYRINGE 7.5 ML IV SCH ×2 (04:07→15:45)
[2018-11-05] MEDS: fentaNYL citrate 100 MCG/2 ML VIAL IV PRN ×2 (04:33→21:45)
[2018-11-05 04:59] LABS: Basophils # (auto) 0.01 K/uL (0-0.2); Basophils % (auto) 0.2 %; Hematocrit (blood only) 27.9 % (42-52); Hemoglobin 8.9 g/dL (14.0-18.0); Immature Granulocytes # (auto) 0.01 K/uL (0.00-0.02); Immature Granulocytes % (auto) 0.2 %; Lymphocytes # (auto) 0.33 K/uL (1.2-3.4); Lymphocytes % (auto) 5.1 %; Mean Corpuscular Hemoglobin 29.9 pg (25-34); Mean Corpuscular Hgb Conc 31.9 g/dL (32-36); Mean Corpuscular Volume 93.6 fL (80-100); Mean Platelet Volume 9.3 fL (7.4-10.4); Monocytes # (auto) 0.22 K/uL (0.11-0.59); Monocytes % (auto) 3.4 %; Neutrophils # (auto) 5.91 K/uL (1.4-6.5); Neutrophils % (auto) 91.1 %; Platelet Count 145 K/uL (130-400); RDW Standard Deviation 51.1 fL (36.4-46.3); Red Blood Count 2.98 M/uL (4.7-6.1); White Blood Count 6.48 K/uL (4.8-10.8)
[2018-11-05 05:15] LABS: BUN Creatinine Ratio 100.5 (10-20); Calcium 7.9 mg/dl (8.5-10.1); Creatinine Clr Calc Pharmacy 134.1 ml/min; Est GFR (African American) 132.9; Est GFR (Non-African American) 114.7; Magnesium 2.7 mg/dl (1.8-2.4); Potassium 4.6 mmol/L (3.5-5.1)
[2018-11-05 05:16] LABS: Phosphorus 3.1 mg/dl (2.5-4.9)
[2018-11-05 05:53] LABS: iSTAT Allen Test Pass; iSTAT Art Bld Gas pCO2 Correct 66 mmHg (35-46); iSTAT Arterial Blood Gas HCO3 32 meg/L (19-24); iSTAT Arterial Blood Gas pCO2 66 mmHg (35-46); iSTAT Arterial Blood Gas pH 7.29 (7.35-7.45); iSTAT Arterial Blood Gas pO2 74 mmHg (80-95); iSTAT Arterial Blood Gas pO2 C 72; iSTAT Carbon Dioxide 34 mEq/l (24-31); iSTAT Site Art Line
--- NOTE | 2018-11-05 06:26 | Critical Care Progress Note ---
Date of Service November 05, 2018 Assessment & Plan (1) Admitted to intensive care unit: Reason Critically Ill: 67-year-old male here for acute on chronic COPD exacerbation. 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 Cardiac: -Hemodynamically stable Respiratory: Acute on chronic COPD exacerbation Patient is a lengthy history of smoking, and is now entered end-stage COPD. Normally he is on chronic oxygen 3 L at home. Family reports patient has recently completed antibiotic and steroid taper from last hospital admission, family reports recently the patient has had worsening mental status and increased confusion. The patient is also experienced difficulty maintaining oxygen saturation as he is self titrated himself up to 5 L of oxygen. When EMS arrived to the patient's house he was satting 70% on 5 L O2, and nonrebreather mask was placed and the patient was emergently transferred to [facility]. Upon arrival he was evaluated, and the emergency department attendings did everything possible to avoid intubation. However the patient's mental status continued to decline, and his ABG became increasingly worse. After javy conversation with the family about intubation and how the patient would likely be difficult to wean, the patient was subsequently intubated. The ICU team was consulted for transfer to the ICU. Currently intubated, DC'd Versed started fentanyl for pain management and sedation -Sedation vacations ordered IV Solu-Medrol 40 mix every 12 hours Duo nebs every 6 hours Albuterol nebs every 2 as needed -Palliative consult placed -Per family patient would not want prolonged intubation or tracheostomy, will continue with 48 hours of aggressive therapy and reassess at that point. -Patient is now DNR -It is imperative the goals of care clarified given the fact that the patient self extubated himself once already. Should he self extubated again with the family want him to be reintubated or a trial of BiPAP or natural processes to occur. HCAP Pneumonia Patient's recent clinical history of worsening ability to oxygenate, poor mentation, and chronic cough are all indicative of pneumonia. It is highly unusual that the patient would develop a pneumonia imaging upon admission demonstrated diffuse groundglass opacities throughout all lung verma highly suggestive of pneumonia, official read is pending. There are no air-fluid levels present. Physical exam does not demonstrate significant wheezes, rales, rhonchi however. It is difficult to appreciate secondary to intubation. Given patient's frequent hospitalizations, and recent completion of antibiotics, will be treating this is H CAP. Patient does have an elevated procalcitonin to 1.13 lactate depressed to 0.58. However the patient does not have a white count currently, no fever, no chills and hypertensive on admission. -Blood cultures obtained follow-up results. White count trending down -Bronc washings demonstrate probable Haemophilus species -Trend CBC -Modified antibiotic therapy -DC'd azithromycin -Continue cefepime day 2 -dc'd Vancomycin -Else as above Acute on chronic respiratory failure with hypoxia and hypercapnia See above GI: -N.p.o. RENAL/LYTES: -No significant electrolyte derangement. -Replace lytes as needed. -BUN trending up however creatinine stable ?Secondary to tube feedings : - No concerns at this time. boyer in place ENDO: -No concerns at present HEME: Hemoglobin has been trending downward with no clear etiology 11.1 on admission now stable at 8.5 iron labs demonstrate decrease iron decreased TIBC decreased transferrin and extremely elevated ferritin with a normal MCV this is likely indicative of an inflammatory marker. In the remainder of his iron labs were depressed likely from anemia of chronic disease versus acute anemia. Unclear as to why his hemoglobin dropped so profoundly we will continue to trend. Hemoglobin is subsequently stabilized likely representing hemodilution secondary to fluid resuscitation. ID: HCAP pneumonia -See above -Monitor fever curve. INTEGUMENTARY: -No acute concerns at present LINES/IV ACCESS: -PIVs x 3 intact. DVT PROPHYLAXIS: -SCDs and Lovenox 40 mg every 6 hours Dispo: ICU Thank you for allowing us to be part of this patient's care. Please refer to Dr. Moreno's documentation for any further recommendations. (2) Moderate protein-energy malnutrition: (3) Acute on chronic respiratory failure with hypoxia and hypercapnia: (4) Goals of care, counseling/discussion: (5) Anemia: (6) Respiratory failure: (7) Acute encephalopathy: Supervising Physician Co-Signing Physician Notes Patient seen and examined with the resident physician Dr. Painting and I agree with his note aside for any additions/exceptions: She continues to be critically ill and requiring mechanical ventilation. He self extubated this afternoon after being off sedation and being on a spontaneous breathing trial. Unfortunately, he is not able to maintain saturations on his own and continued to be profoundly confused and thus I elected to emergently reintubate him. Continue cefepime for today. He is growing H influenza from the BAL washings. Likely we can de-escalate tomorrow to Rocephin. We can reevaluate his mental status and respiratory status tomorrow and perform another spontaneous breathing trial. He needs a bowel regimen while he is on the fentanyl and we have ordered this. We have also ordered for Precedex to be used for agitation. RAST goal of -1 or today. Reinstituted Lovenox as his hemoglobin is stabilized. I did di scuss with the family at bedside regarding the events of today and they are still in agreement about pursuing a time-limited trial and see how he does over the next day or 2 before making a decision about compassionately extubating versus continuing with aggressive care. Subjective Pt is laying in bed intubated in no acute distress. On sedation vacation, respo nds to verbal stimuli. Boyer in making urine, tolerating tube feeds. Did well per report, no acute concerns. Patient attempted to self extubate himself this morning during weaning from sedation and CPAP trial. Was successful at extubating himself, subsequently desaturated and was reintubated. Physical Exam Physical Exam: General: Elderly gentleman pale appearing, cachectic, intubated HEENT: Normocephalic atraumatic Neck: Normal to visual inspection, trachea midline, did not appreciate significant JVD Cardiac:Regular rate and rhythm, extremities warm well perfused, normal S1, normal S2, did not appreciate any gallops, negative pedal edema, Respiratory: Difficult exam secondary to intubation, ET tube in place, otherwise clear to auscultation bilaterally GI: hypoactive Bowel sounds present, nondistended MSK: Deferred Skin: Normal visual inspection Neuro: Sedated, responds to verbal stimuli Psych: Sedated Results & Data Vital Signs (Past 12 Hours) Vital Signs Pulse Resp BP Pulse Ox 11/05/18 05:45 79 22 92 11/05/18 04:15 83 91 11/05/18 04:00 84 129/65 90 11/05/18 03:45 85 90 09/17/19 03:30 89 90 11/05/18 03:15 87 22 91 11/05/18 03:00 88 118/55 L 90 11/05/18 02:56 89 11/05/18 02:45 87 90 11/05/18 02:30 86 88 L 11/05/18 02:15 83 90 11/05/18 02:00 84 120/59 L 90 11/05/18 01:45 85 90 11/05/18 01:30 83 92 11/05/18 01:18 82 22 94 11/05/18 01:15 73 92 11/05/18 01:00 73 122/64 92 11/05/18 00:45 76 92 11/05/18 00:31 78 90 11/05/18 00:29 77 124/65 90 11/05/18 00:15 79 90 11/05/18 00:00 78 124/65 94 11/04/18 23:45 79 95 11/04/18 23:30 78 95 11/04/18 23:15 78 95 11/04/18 23:00 78 129/66 96 11/04/18 22:45 81 11/04/18 22:35 80 23 95 11/04/18 22:30 80 97 11/04/18 22:15 81 96 11/04/18 22:00 86 129/60 96 11/04/18 21:45 73 95 11/04/18 21:30 75 95 11/04/18 21:15 77 95 11/04/18 21:00 76 124/62 96 11/04/18 20:45 77 97 11/04/18 20:30 79 97 11/04/18 20:15 79 99 11/04/18 20:00 80 120/59 L 99 11/04/18 19:45 79 100 11/04/18 19:30 73 22 100 11/04/18 19:15 71 100 11/04/18 19:00 70 135/66 99 11/04/18 18:30 72 99 Laboratory Results 11/05/18 11/05/18 11/05/18 Range/Units 05:39 04:46 04:45 WBC (4.8-10.8) K/uL RBC (4.7-6.1) M/uL Hgb (14.0-18.0) g/dL Hct (42-52) % MCV (80-100) fL MCH (25-34) pg MCHC (32-36) g/dL RDW Std Deviation (36.4-46.3) fL RDW Coeff of Cherrie (11.5-14.5) % Plt Count (130-400) K/uL MPV (7.4-10.4) fL Immature Gran % (Auto) % Neut % (Auto) % Lymph % (Auto) % Coffee % (Auto) % Eos % (Auto) % Baso % (Auto) % Immature Gran # (Auto) (0.00-0.02) K/uL Neut # (Auto) (1.4-6.5) K/uL Lymph # (Auto) (1.2-3.4) K/uL Coffee # (Auto) (0.11-0.59) K/uL Eos # (Auto) (0-0.5) K/uL Baso # (Auto) (0-0.2) K/uL Sample Site Art Line POC pH 7.29 L (7.35-7.45) POC pCO2 66 H (35-46) mmHg POC pO2 74 L (80-95) mmHg POC HCO3 32 H (19-24) ismael/L POC Total CO2 34 H (24-31) mEq/l POC Base Excess 5.0 H (-9-1.8) ismael/L ABG pH (Temp Correct) 7.290 L (7.35-7.45) ABG pCO2 (Temp Corrct 66 H (35-46) mmHg POC ABG pO2 at Pt Temp 72 POC ABG O2 Sat 92.0 (90-95) % [place] Test Pass O2 Delivery Device Ventilator POC O2 Rate 22 Minute Ventilation 9.3 Tidal Volume 450 PEEP 5 Sodium (136-145) mmol/L Potassium (3.5-5.1) mmol/L Chloride (98-107) mmol/L Carbon Dioxide (21-32) mmol/L Anion Gap (3-11) BUN (7-18) mg/dl Creatinine (0.6-1.4) mg/dl Est Cr Clr Drug Dosing ml/min Est GFR ( Amer) Est GFR (Non-Af Amer) BUN/Creatinine Ratio (10-20) Glucose (70-99) mg/dl POC Glucose 149 H (70-99) Calcium (8.5-10.1) mg/dl Phosphorus (2.5-4.9) mg/dl Magnesium (1.8-2.4) mg/dl Iron (35-175) mcg/dl TIBC (250-450) mcg/dl Transferrin (200-360) mg/dl Ferritin (8-388) ng/ml Procalcitonin 1.08 H (0-0.5) ng/ml 11/05/18 11/05/18 11/04/18 Range/Units 04:45 04:45 23:39 WBC 6.48 (4.8-10.8) K/uL RBC 2.98 L (4.7-6.1) M/uL Hgb 8.9 L (14.0-18.0) g/dL Hct 27.9 L (42-52) % MCV 93.6 (80-100) fL MCH 29.9 (25-34) pg MCHC 31.9 L (32-36) g/dL RDW Std Deviation 51.1 H (36.4-46.3) fL RDW Coeff of Cherrie 15.0 H (11.5-14.5) % Plt Count 145 (130-400) K/uL MPV 9.3 (7.4-10.4) fL Immature Gran % (Auto) 0.2 % Neut % (Auto) 91.1 % Lymph % (Auto) 5.1 % Coffee % (Auto) 3.4 % Eos % (Auto) 0.0 % Baso % (Auto) 0.2 % Immature Gran # (Auto) 0.01 (0.00-0.02) K/uL Neut # (Auto) 5.91 (1.4-6.5) K/uL Lymph # (Auto) 0.33 L (1.2-3.4) K/uL Coffee # (Auto) 0.22 (0.11-0.59) K/uL Eos # (Auto) 0.00 (0-0.5) K/uL Baso # (Auto) 0.01 (0-0.2) K/uL Sample Site POC pH (7.35-7.45) POC pCO2 (35-46) mmHg POC pO2 (80-95) mmHg POC HCO3 (19-24) ismael/L POC Total CO2 (24-31) mEq/l POC Base Excess (-9-1.8) ismael/L ABG pH (Temp Correct) (7.35-7.45) ABG pCO2 (Temp Corrct (35-46) mmHg POC ABG pO2 at Pt Temp POC ABG O2 Sat (90-95) % [place] Test O2 Delivery Device POC O2 Rate Minute Ventilation Tidal Volume PEEP Sodium 141 (136-145) mmol/L Potassium 4.6 (3.5-5.1) mmol/L Chloride 106 (98-107) mmol/L Carbon Dioxide 32 (21-32) mmol/L Anion Gap 3.0 (3-11) BUN 49 H (7-18) mg/dl Creatinine 0.49 L (0.6-1.4) mg/dl Est Cr Clr Drug Dosing 134.1 ml/min Est GFR ( Amer) 132.9 Est GFR (Non-Af Amer) 114.7 BUN/Creatinine Ratio 100.5 H (10-20) Glucose 145 H (70-99) mg/dl POC Glucose 148 H (70-99) Calcium 7.9 L (8.5-10.1) mg/dl Phosphorus 3.1 (2.5-4.9) mg/dl Magnesium 2.7 H (1.8-2.4) mg/dl Iron (35-175) mcg/dl TIBC (250-450) mcg/dl Transferrin (200-360) mg/dl Ferritin (8-388) ng/ml Procalcitonin (0-0.5) ng/ml 11/04/18 11/04/18 11/04/18 Range/Units 11:57 10:26 10:26 WBC (4.8-10.8) K/uL RBC (4.7-6.1) M/uL Hgb (14.0-18.0) g/dL Hct (42-52) % MCV (80-100) fL MCH (25-34) pg MCHC (32-36) g/dL RDW Std Deviation (36.4-46.3) fL RDW Coeff of Cherrie (11.5-14.5) % Plt Count (130-400) K/uL MPV (7.4-10.4) fL Immature Gran % (Auto) % Neut % (Auto) % Lymph % (Auto) % Coffee % (Auto) % Eos % (Auto) % Baso % (Auto) % Immature Gran # (Auto) (0.00-0.02) K/uL Neut # (Auto) (1.4-6.5) K/uL Lymph # (Auto) (1.2-3.4) K/uL Coffee # (Auto) (0.11-0.59) K/uL Eos # (Auto) (0-0.5) K/uL Baso # (Auto) (0-0.2) K/uL Sample Site POC pH (7.35-7.45) POC pCO2 (35-46) mmHg POC pO2 (80-95) mmHg POC HCO3 (19-24) ismael/L POC Total CO2 (24-31) mEq/l POC Base Excess (-9-1.8) ismael/L ABG pH (Temp Correct) (7.35-7.45) ABG pCO2 (Temp Corrct (35-46) mmHg POC ABG pO2 at Pt Temp POC ABG O2 Sat (90-95) % [place] Test O2 Delivery Device POC O2 Rate Minute Ventilation Tidal Volume PEEP Sodium (136-145) mmol/L Potassium (3.5-5.1) mmol/L Chloride (98-107) mmol/L Carbon Dioxide (21-32) mmol/L Anion Gap (3-11) BUN (7-18) mg/dl Creatinine (0.6-1.4) mg/dl Est Cr Clr Drug Dosing ml/min Est GFR ( Amer) Est GFR (Non-Af Amer) BUN/Creatinine Ratio (10-20) Glucose (70-99) mg/dl POC Glucose 127 H (70-99) Calcium (8.5-10.1) mg/dl Phosphorus (2.5-4.9) mg/dl Magnesium (1.8-2.4) mg/dl Iron 13 L (35-175) mcg/dl TIBC 116 L (250-450) mcg/dl Transferrin 89 L (200-360) mg/dl Ferritin 1021.9 H (8-388) ng/ml Procalcitonin (0-0.5) ng/ml 11/04/18 Range/Units 10:26 WBC (4.8-10.8) K/uL RBC (4.7-6.1) M/uL Hgb 8.5 L (14.0-18.0) g/dL Hct 27.1 L (42-52) % MCV (80-100) fL MCH (25-34) pg MCHC (32-36) g/dL RDW Std Deviation (36.4-46.3) fL RDW Coeff of Cherrie (11.5-14.5) % Plt Count (130-400) K/uL MPV (7.4-10.4) fL Immature Gran % (Auto) % Neut % (Auto) % Lymph % (Auto) % Coffee % (Auto) % Eos % (Auto) % Baso % (Auto) % Immature Gran # (Auto) (0.00-0.02) K/uL Neut # (Auto) (1.4-6.5) K/uL Lymph # (Auto) (1.2-3.4) K/uL Coffee # (Auto) (0.11-0.59) K/uL Eos # (Auto) (0-0.5) K/uL Baso # (Auto) (0-0.2) K/uL Sample Site POC pH (7.35-7.45) POC pCO2 (35-46) mmHg POC pO2 (80-95) mmHg POC HCO3 (19-24) ismael/L POC Total CO2 (24-31) mEq/l POC Base Excess (-9-1.8) ismael/L ABG pH (Temp Correct) (7.35-7.45) ABG pCO2 (Temp Corrct (35-46) mmHg POC ABG pO2 at Pt Temp POC ABG O2 Sat (90-95) % [place] Test O2 Delivery Device POC O2 Rate Minute Ventilation Tidal Volume PEEP Sodium (136-145) mmol/L Potassium (3.5-5.1) mmol/L Chloride (98-107) mmol/L Carbon Dioxide (21-32) mmol/L Anion Gap (3-11) BUN (7-18) mg/dl Creatinine (0.6-1.4) mg/dl Est Cr Clr Drug Dosing ml/min Est GFR ( Amer) Est GFR (Non-Af Amer) BUN/Creatinine Ratio (10-20) Glucose (70-99) mg/dl POC Glucose (70-99) Calcium (8.5-10.1) mg/dl Phosphorus (2.5-4.9) mg/dl Magnesium (1.8-2.4) mg/dl Iron (35-175) mcg/dl TIBC (250-450) mcg/dl Transferrin (200-360) mg/dl Ferritin (8-388) ng/ml Procalcitonin (0-0.5) ng/ml Medications Administered Current Inpatient Medications Acetaminophen (Tylenol) 650 mg MI Q4H PRN PRN Reason: mild pain or fever Stop: 12/03/18 06:56 Last Admin: 11/03/18 18:39 Dose: 650 mg Documented by: Albuterol (Duoneb) 3 ml INH Q6R [facility] Stop: 12/03/18 06:59 Last Admin: 11/05/18 07:42 Dose: 3 ml Documented by: Fentanyl Citrate (Fentanyl Citrate) 25 mcg IV ONE PRN PRN Reason: Pain Not Controlled by Drip Stop: 11/18/18 08:50 Last Admin: 11/05/18 04:33 Dose: 25 mcg Documented by: Cefepime HCl 2,000 mg/ Syringe 20 mls @ 5.5 mls/min IV Q12H [facility]; Protocol Stop: 11/10/18 15:59 Last Admin: 11/05/18 04:07 Dose: 5.5 mls/min Documented by: Famotidine 20 mg/ Syringe 5 mls @ 2.5 mls/min IV BID [facility] Stop: 12/03/18 08:59 Last Admin: 11/05/18 08:10 Dose: 2.5 mls/min Documented by: Fentanyl Citrate (Fentanyl Drip) 1,250 mcg in 250 mls @ 0 mls/hr IV .Q0M [facility]; Protocol Stop: 11/18/18 08:50 Last Titration: 11/05/18 05:40 Dose: 0 mcg/hr, 0 mls/hr Documented by: Methylprednisolone 40 mg/ (Syringe) 0.64 mls @ 1.5 mls/min IV Q12H [facility] Stop: 12/04/18 19:59 Last Admin: 11/05/18 08:10 Dose: 1.5 mls/min Documented by: Ioversol (Optiray 320 125ml) 90 ml IV ONCE PRN PRN Reason: Interaction Checking Stop: 11/07/18 05:47 Last Admin: 11/03/18 05:49 Dose: 90 ml Documented by: Nutritional Formula (Peptamen Intense Vhp 1.0 [place]) 0 ml GT UD [facility]; Protocol Stop: 12/03/18 09:08 Last Admin: 11/04/18 16:00 Dose: 1,000 ml Documented by: PG Care Time/CCT Total # of Minutes Spent Total Time Spent with Patient: Total time spent is greater than 50% in coordination of care (as documented) at patient's floor/unit and/or counseling patient: Critical Care Time: Yes Total Critical Care Time: 60 Resident Activity Tracking Resident Involvement: Resident Care Provided Care Provided: Adult Hospital Medicine (ICU COPD [facility] ) (1) Anemia Anemia type: unspecified type Qualified Code(s): D64.9 - Anemia, unspecified (2) Respiratory failure Chronicity: acute on chronic Respiratory failure complication: hypoxia and hypercapnia Qualified Code(s): J96.21 - Acute and chronic respiratory failure with hypoxia; J96.22 - Acute and chronic respiratory failure with hypercapnia
[2018-11-05] MEDS: FAMOTIDINE 20 MG in SYRINGE 3 ML IV SCH ×2 (08:10→20:27)
[2018-11-05] MEDS: methylPREDNISolone 40 MG in SYRINGE 0 ML IV SCH ×2 (08:10→20:28)
[2018-11-05] MEDS ORDERED: RAPID SEQUENCE INDUCTION BAG ONE (09:50)
[2018-11-05] MEDS ORDERED: fentaNYL citrate 100 MCG/2 ML VIAL IV ONE (10:00)
[2018-11-05] MEDS ORDERED: ETOMIDATE 2 MG/ML 20 ML VIAL IV ONE (10:00)
--- NOTE | 2018-11-05 10:20 | Procedure Note ---
Procedure Note Date of Service November 05, 2018 INTUBATION PROCEDURE NOTE: Dr. Sukhi Moreno No timeout or consent was obtained this procedure was emergent. Patient was evaluated and required intubation for hypoxemic and hypercapnic respiratory failure. Sedative agent used: 50 mcg of fentanyl and 20 mg of etomidate Paralysis agent used: None Emergent consent was implied given patients rapidly declining clinical status and need for airway protection. Number of attempts: 1 Grade view: Nonapplicable as I used a [facility] video laryngoscope The patient was prepared in the appropriate fashion. Sedation was achieved utilizing fentanyl and etomidate. The patient was easily ventilated using [id number] to achieve adequate oxygenation. A [7.5] Serbian endotracheal tube was placed under video laryngoscope guidance to 23 cm at the lip. The stylette was removed and balloon was inflated with 10mL of air. Appropriate Colorimetric change was appreciated. Bilateral breath sounds were heard without air sounds in the abdomen. Post Intubation Chest X-ray ordered Patient tolerated the procedure well and there were no immediate complications. Coding CPT Codes Resuscitation - Resuscitation: Endotracheal Intubation, emergency ([id number])
--- NOTE | 2018-11-05 10:30 | Palliative Care Progress Note ---
Date of Service November 05, 2018 Assessment & Plan (1) Goals of care, counseling/discussion: -Patient remains on ventilator on AC mode. Sedation has been turned off and they are planning to do a weaning trial once he is more awake. Patient is opening eyes and moving extremities. He is able to track with his eyes, but not yet following commands. -Oxygen saturation 90-92% with 40% FiO2. [employer] Worker is managing his care at this point. -Plan is to continue treatment for 24-48 hours and hopefully liberate from the ventilator. Patient's family is hoping he will be able to participate in conversation re: goals of care and whether or not he would want to be reintubated at this point. -In the setting of chronic illness and end-stage COPD, prognosis is poor. -Palliative care will continue to follow and assist with any medical decision making. (2) COPD exacerbation: (3) Acute on chronic respiratory failure with hypoxia and hypercapnia: (4) Pneumonia: Subjective Patient remains on ventilator. Awake with sedation turned off. No family at bedside. Review of Systems Review of Systems: Unobtainable due to endotracheal tube Physical Exam Constitutional: + ill appearing (chronically); no acute distress ENMT: external ear and nose normal, oropharynx normal Neck: normal visual inspection Respiratory: Auscultation: + diminished lung sounds and + rhonchi Cardiovascular: Rate/Rhythm: regular rate and regular rhythm Extremities: no edema Gastrointestinal (Abdomen): Inspection/Auscultation: abdomen normal to inspection and normal bowel sounds; abdomen not distended Percussion/Palpation: abdomen soft Skin: + pallor Neurologic: awake (intubated. not able to follow commands yet this morning but is KRUGER) Results & Data Vital Signs (Past 12 Hours) Vital Signs Pulse Resp BP Pulse Ox 11/05/18 09:15 94 H 9 L 93 11/05/18 08:00 88 24 140/72 98 11/05/18 07:45 79 24 94 11/05/18 07:00 80 22 139/72 94 11/05/18 06:30 76 92 11/05/18 06:15 78 92 11/05/18 06:00 76 122/64 91 11/05/18 05:45 80 22 91 11/05/18 05:31 82 125/64 92 11/05/18 05:30 83 92 11/05/18 05:15 87 93 09/17/19 05:00 96 H 90 11/05/18 04:45 84 93 11/05/18 04:30 95 H 95 11/05/18 04:15 83 91 11/05/18 04:00 84 129/65 90 11/05/18 03:45 85 90 11/05/18 03:30 89 90 11/05/18 03:15 87 22 91 11/05/18 03:00 88 118/55 L 90 11/05/18 02:56 89 11/05/18 02:45 87 90 11/05/18 02:30 86 88 L 11/05/18 02:15 83 90 11/05/18 02:00 84 120/59 L 90 11/05/18 01:45 85 90 11/05/18 01:30 83 92 11/05/18 01:18 82 22 94 11/05/18 01:15 73 92 11/05/18 01:00 73 122/64 92 11/05/18 00:45 76 92 11/05/18 00:31 78 90 11/05/18 00:29 77 124/65 90 11/05/18 00:15 79 90 11/05/18 00:00 78 124/65 94 11/04/18 23:45 79 95 11/04/18 23:30 78 95 11/04/18 23:15 78 95 11/04/18 23:00 78 129/66 96 11/04/18 22:45 81 11/04/18 22:35 80 23 95 11/04/18 22:30 80 97 Time Spent Midlevel 35 minutes with >50% of the time spent at bedside with patient and IDT discussing plan of care. (1) Pneumonia Laterality: unspecified laterality Lung location: unspecified part of lung Pneumonia type: due to unspecified organism Qualified Code(s): J18.9 - Pneumonia, unspecified organism
[2018-11-05] MEDS: ENOXAPARIN INJ 40 MG/0.4 ML SYR SQ SCH (10:44)
--- NOTE | 2018-11-05 10:45 | XRay Report ---
XR chest 1V portable CLINICAL HISTORY: 67 years-old Male presenting with s/p intubation. TECHNIQUE: Portable upright AP view of the chest was obtained. COMPARISON: 11/03/2018. FINDINGS: The tracheal tube terminates in the upper thoracic trachea proximal to 7 cm from the gina. A feedin g catheter descends below the diaphragm with the terminus likely looped back in the region of the gas troesophageal junction, incompletely visualized. Atherosclerosis of the aortic arch. Cardiac silhouet te normal in size. Extensive heterogeneity of lung parenchyma with patchy reticular and groundglass o pacities in a similar distribution as on prior exam though the density has decreased. Lungs are overa ll hyperinflated as on prior exam. No pleural effusion or pneumothorax is apparent. External leads pr oject over the right upper lung. Osseous structures normal. IMPRESSION: 1. Appropriately positioned endotracheal tube. 2. Feeding catheter may terminate within the region of the gastroesophageal junction, looped back up on itself. Consider repositioning. 3. Interval decrease in patchy pulmonary infiltrates on a background of severe emphysema. This is fa vored to represent multifocal pneumonia. Electronically signed by: Zeus Street M.D. 11/05/2018 10:43 AM
[2018-11-05] MEDS: DEXMEDETOMIDINE HCL 200 MCG in SODIUM CHLORIDE 0.9% 48 ML IV SCH ×2 (11:50→15:22)
[2018-11-05 11:55] LABS: iSTAT Art Bld Gas pCO2 Correct 60 mmHg (35-46); iSTAT Art Bld Gas pH Corrected 7.319 (7.35-7.45); iSTAT Arterial Blood Gas HCO3 30 meg/L (19-24); iSTAT Arterial Blood Gas pCO2 58 mmHg (35-46); iSTAT Arterial Blood Gas pH 7.33 (7.35-7.45); iSTAT Arterial Blood Gas pO2 155 mmHg (80-95); iSTAT Arterial Blood Gas pO2 C 158; iSTAT Carbon Dioxide 32 mEq/l (24-31); iSTAT Site Art Line
[2018-11-05] MEDS ORDERED: PROPOFOL IV EMULSION 10 MG/ML 100 ML VIAL IV ONE (15:48)
[2018-11-05] MEDS: PROPOFOL 1,000 MG/100 ML VIAL IV SCH (16:42)
[2018-11-05] MEDS: PEPTAMEN INTENSE VHP 1.0 CAL 1,000 ML BAG GT SCH (16:42)
--- NOTE | 2018-11-05 18:11 | Hospitalist Progress Note ---
Date of Service November 05, 2018 Assessment & Plan (1) Acute on chronic respiratory failure with hypoxia and hypercapnia: Managing as HCAP, continue current antibiotics and supportive care. Goals of care/duration of aggressive care being discussed with family, ICU team, and palliative. Given the end-stage nature of his COPD, this is certainly quite reasonable. (2) COPD exacerbation: (3) Pneumonia: (4) Admitted to intensive care unit: (5) Tobacco use disorder: Subjective No meaningful HPI or review of systems obtainable. ICU and palliative team input greatly appreciated. Review of Systems Review of Systems: Unobtainable due to cognitive status Physical Exam Physical Exam: In general he is sedated on the ventilator no distress. His breathing appears unlabored no on even rise and fall of his chest wall. He shows no focal neuro deficits. Skin shows no rashes no pallor or icterus. His endotracheal tube and feeding tube show no signs of local skin breakdown. Results & Data Vital Signs (Past 12 Hours) Vital Signs Pulse Resp BP Pulse Ox 11/05/18 16:00 78 11/05/18 14:00 74 24 120/60 92 11/05/18 13:45 81 24 93 11/05/18 13:00 74 24 126/62 92 11/05/18 12:00 81 24 146/68 H 92 11/05/18 11:45 83 24 93 11/05/18 11:00 80 24 141/71 H 92 11/05/18 10:30 80 24 133/66 94 11/05/18 10:13 85 24 141/69 H 95 11/05/18 10:05 85 24 129/66 97 11/05/18 10:03 85 126/63 97 11/05/18 10:00 88 24 138/67 97 11/05/18 09:58 94 H 12 132/66 98 11/05/18 09:55 94 H 12 140/67 98 11/05/18 09:51 108 H 12 128/87 98 11/05/18 09:15 94 H 9 L 93 11/05/18 09:00 87 24 89 L 11/05/18 08:00 88 24 140/72 98 11/05/18 07:45 79 24 94 11/05/18 07:00 80 22 139/72 94 11/05/18 06:30 76 92 11/05/18 06:15 78 92 PG Care Time/CCT Total # of Minutes Spent Total Time Spent with Patient: Total time spent is greater than 50% in coordination of care (as documented) at patient's floor/unit and/or counseling patient: (1) Pneumonia Laterality: unspecified laterality Lung location: unspecified part of lung Pneumonia type: due to unspecified organism Qualified Code(s): J18.9 - Pneumonia, unspecified organism
[2018-11-05] MEDS: DOCUSATE SODIUM SYRUP 100 MG/10 ML UDC PO SCH (20:28)
[2018-11-05] MEDS: SENNA 17.6 MG/10 ML UDP PO SCH (20:28)
[2018-11-06] MEDS: ALBUT/IPRATROP 3MG/0.5MG NEB 3 ML VIAL INH SCH ×4 (00:54→18:39)
[2018-11-06] MEDS: PROPOFOL 1,000 MG/100 ML VIAL IV SCH ×3 (02:53→23:47)
[2018-11-06] MEDS: CEFEPIME 2,000 MG in SYRINGE 7.5 ML IV SCH (03:48)
[2018-11-06 04:47] LABS: Basophils # (auto) 0.01 K/uL (0-0.2); Basophils % (auto) 0.2 %; Hematocrit (blood only) 26.3 % (42-52); Hemoglobin 8.2 g/dL (14.0-18.0); Immature Granulocytes # (auto) 0.02 K/uL (0.00-0.02); Immature Granulocytes % (auto) 0.4 %; Lymphocytes # (auto) 0.32 K/uL (1.2-3.4); Lymphocytes % (auto) 7.1 %; Mean Corpuscular Hemoglobin 29.3 pg (25-34); Mean Corpuscular Hgb Conc 31.2 g/dL (32-36); Mean Corpuscular Volume 93.9 fL (80-100); Mean Platelet Volume 9.1 fL (7.4-10.4); Monocytes # (auto) 0.22 K/uL (0.11-0.59); Monocytes % (auto) 4.9 %; Neutrophils # (auto) 3.91 K/uL (1.4-6.5); Neutrophils % (auto) 87.4 %; Platelet Count 146 K/uL (130-400); RDW Standard Deviation 51.5 fL (36.4-46.3); White Blood Count 4.48 K/uL (4.8-10.8)
[2018-11-06 05:08] LABS: Calcium 7.8 mg/dl (8.5-10.1); Creatinine Clr Calc Pharmacy 149.9 ml/min; Est GFR (African American) 138.9; Est GFR (Non-African American) 119.9; Magnesium 2.6 mg/dl (1.8-2.4); Phosphorus 3.3 mg/dl (2.5-4.9); Potassium 4.9 mmol/L (3.5-5.1)
[2018-11-06] MEDS: fentaNYL DRIP 1,250 MCG/250 ML BAG IV SCH ×4 (05:36→17:55)
[2018-11-06 05:54] LABS: iSTAT Art Bld Gas pCO2 Correct 65 mmHg (35-46); iSTAT Arterial Blood Gas HCO3 34 meg/L (19-24); iSTAT Arterial Blood Gas pCO2 65 mmHg (35-46); iSTAT Arterial Blood Gas pH 7.32 (7.35-7.45); iSTAT Arterial Blood Gas pO2 82 mmHg (80-95); iSTAT Arterial Blood Gas pO2 C 83; iSTAT Carbon Dioxide 36 mEq/l (24-31); iSTAT Site Art Line
--- NOTE | 2018-11-06 07:03 | XRay Report ---
XR chest 1V portable CLINICAL HISTORY: pneumonia COMPARISON STUDY: 07/05/2018 FINDINGS: The heart is normal in size. There is an endotracheal tube 7 cm above the gina. There is a nasogastric tube which passes into the stomach. There is severe underlying emphysema. There are tra ce pleural effusions. There is diffuse elevation of interstitium. Diagnostic considerations include c ongestive failure versus a bilateral pneumonitis.[ IMPRESSION: 1. No significant change from the prior study 2. Severe emphysema 3. Stable bilateral airspace opacities, pneumonia versus pulmonary edema 4. Small pleural effusions Electronically signed by: Roland Mcdonald M.D. 11/06/2018 7:02 AM
[2018-11-06] MEDS: FAMOTIDINE 20 MG in SYRINGE 3 ML IV SCH ×2 (08:43→20:47)
[2018-11-06] MEDS: methylPREDNISolone 40 MG in SYRINGE 0 ML IV SCH (08:43)
[2018-11-06] MEDS: DOCUSATE SODIUM SYRUP 100 MG/10 ML UDC PO SCH ×2 (08:43→20:47)
--- NOTE | 2018-11-06 09:05 | Critical Care Progress Note ---
Date of Service November 06, 2018 Assessment & Plan (1) Admitted to intensive care unit: Reason Critically Ill: 67-year-old male here for acute on chronic COPD exacerbation. 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 Cardiac: -Hemodynamically stable Respiratory: Acute on chronic COPD exacerbation Patient is a lengthy history of smoking, and is now entered end-stage COPD. Normally he is on chronic oxygen 3 L at home. Family reports patient has recently completed antibiotic and steroid taper from last hospital admission, family reports recently the patient has had worsening mental status and increased confusion. The patient is also experienced difficulty maintaining oxygen saturation as he is self titrated himself up to 5 L of oxygen. When EMS arrived to the patient's house he was satting 70% on 5 L O2, and nonrebreather mask was placed and the patient was emergently transferred to [facility]. Upon arrival he was evaluated, and the emergency department attendings did everything possible to avoid intubation. However the patient's mental status continued to decline, and his ABG became increasingly worse. After javy conversation with the family about intubation and how the patient would likely be difficult to wean, the patient was subsequently intubated. The ICU team was consulted for transfer to the ICU. Currently intubated, DC'd Versed started fentanyl for pain management and sedation -Sedation vacations ordered IV Solu-Medrol 40 mix every 12 hours Duo nebs every 6 hours Albuterol nebs every 2 as needed -Palliative consult placed -Per family patient would not want prolonged intubation or tracheostomy, however the are hopeful the patient will be extubated and be ruma to participate in the conversation -Patient is now DNR -It is imperative the goals of care clarified given the fact that the patient self extubated himself once already. Should he self extubated again with the family want him to be reintubated or a trial of BiPAP or natural processes to occur. HCAP Pneumonia Patient's recent clinical history of worsening ability to oxygenate, poor mentation, and chronic cough are all indicative of pneumonia. It is highly unusual that the patient would develop a pneumonia imaging upon admission demonstrated diffuse groundglass opacities throughout all lung verma highly suggestive of pneumonia, official read is pending. There are no air-fluid levels present. Physical exam does not demonstrate significant wheezes, rales, rhonchi however. It is difficult to appreciate secondary to intubation. Given patient's frequent hospitalizations, and recent completion of antibiotics, will be treating this is H CAP. Patient does have an elevated procalcitonin to 1.13 lactate depressed to 0.58. However the patient does not have a white count currently, no fever, no chills and hypertensive on admission. -Blood cultures obtained follow-up results. White count trending down -Bronc washings demonstrate probable Haemophilus Influenzae continue coverage with cefipme -Trend CBC -Modified antibiotic therapy -DC'd azithromycin -Continue cefepime day32 -dc'd Vancomycin -Else as above Acute on chronic respiratory failure with hypoxia and hypercapnia See above GI: -N.p.o. RENAL/LYTES: -No significant electrolyte derangement. -Replace lytes as needed. -BUN stable, cr stable. ? bun elevation 2/2 peptamin VHP : - No concerns at this time. boyer in place ENDO: -No concerns at present HEME: Hemoglobin has been trending downward with no clear etiology 11.1 on admission now stable at 8.5 iron labs demonstrate decrease iron decreased TIBC decreased t ransferrin and extremely elevated ferritin with a normal MCV this is likely indicative of an inflammatory marker. In the remainder of his iron labs were depressed likely from anemia of chronic disease versus acute anemia. Unclear as to why his hemoglobin dropped so profoundly we will continue to trend. Hemoglobin is subsequently stabilized likely representing hemodilution secondary to fluid resuscitation. ID: HCAP pneumonia -See above -Monitor fever curve. -afebrile without white count since admission INTEGUMENTARY: -No acute concerns at present LINES/IV ACCESS: -PIVs x 3 intact. DVT PROPHYLAXIS: -SCDs and Lovenox 40 mg Dispo: ICU Thank you for allowing us to be part of this patient's care. Please refer to Dr. Moreno's documentation for any further recommendations. (2) Acute encephalopathy: Supervising Physician Co-Signing Physician Notes Patient seen and examined with resident physician, Dr. Painting. I agree with his assessment and plan aside for any additions/exceptions noted: Patient continues to require ventilatory support. Spontaneous breathing trial attempted for 1 hour and he subsequently became very tachypneic, tachycardic and hypertensive. He was very agitated. He started desaturating to 85%. We had to reinstitute sedation with propofol and fentanyl. His sputum cultures have grown back Haemophilus influenza. Will de-escalate antibiotics to ampicillin. Switch IV Solu-Medrol to 40 mg prednisone daily. Prognosis remains very guarded. Appreciate palliative care input. Continue tube feeds. Continue DVT prophylaxis. Subjective PT remains intubated. Yesterday attempted self extubation with subsequent reintubation. Did well overnight, no acute events or concerns. Pt family would ideally like the pt to be weaned from vent and able to participate in goals of care discussion. Physical Exam Physical Exam: General: Elderly gentleman pale appearing, cachectic, intubated HEENT: Normocephalic atraumatic Neck: Normal to visual inspection, trachea midline, did not appreciate significant JVD Cardiac:Regular rate and rhythm, extremities warm well perfused, normal S1, normal S2, did not appreciate any gallops, negative pedal edema, Respiratory: Difficult exam secondary to intubation, ET tube in place, otherwise clear to auscultation bilaterally GI: hypoactive Bowel sounds present, nondistended MSK: Deferred Skin: Normal visual inspection Neuro: Sedated, responds to verbal stimuli Psych: Sedated Results & Data Vital Signs (Past 12 Hours) Vital Signs Pulse Resp BP Pulse Ox 11/06/18 07:13 63 26 H 98 11/06/18 05:54 26 H 11/06/18 05:32 64 24 95 11/06/18 04:01 62 114/60 93 11/06/18 04:00 63 92 11/06/18 03:45 62 93 11/06/18 03:30 60 93 11/06/18 03:15 62 93 11/06/18 03:11 64 91 11/06/18 03:10 69 90 11/06/18 03:09 76 11/06/18 03:00 62 134/66 94 11/06/18 02:45 61 93 11/06/18 02:30 62 95 11/06/18 02:15 62 95 11/06/18 02:10 61 24 94 11/06/18 02:01 62 134/69 95 11/06/18 02:00 61 95 11/06/18 01:45 60 97 11/06/18 01:30 60 97 11/06/18 01:15 61 97 11/06/18 01:01 62 139/71 100 11/06/18 01:00 61 97 11/06/18 00:45 60 95 11/06/18 00:30 61 95 11/06/18 00:15 60 95 11/06/18 00:00 62 131/64 94 11/05/18 23:50 61 24 94 11/05/18 23:45 63 94 11/05/18 23:30 62 94 11/05/18 23:15 65 94 11/05/18 23:02 74 89 L 11/05/18 23:00 63 93 11/05/18 22:45 70 94 11/05/18 22:30 66 93 11/05/18 22:15 65 94 11/05/18 22:00 74 124/62 84 L 11/05/18 21:45 80 99 11/05/18 21:30 65 98 11/05/18 21:15 62 92 11/05/18 21:00 65 100/54 L 88 L PG Care Time/CCT Total # of Minutes Spent Total Time Spent with Patient: Total time spent is greater than 50% in coordination of care (as documented) at patient's floor/unit and/or counseling patient: 60 min Critical Care Time: Yes Total Critical Care Time: 60 Resident Activity Tracking Resident Involvement: Resident Care Provided Care Provided: Adult Hospital Medicine (ICU: COPD, Bilat PNA, End of Life discussions )
--- NOTE | 2018-11-06 11:44 | Palliative Care Progress Note ---
Date of Service November 06, 2018 Assessment & Plan (1) Goals of care, counseling/discussion: This is a 67 year old male with PMH end-stage COPD, chronic respiratory failure on 3.5LNC at home, HLD, anxiety GERD, AAA, and others, presented to the hospital yesterday with increased SOB. Patient was just in hospital from 10/16- 10/21 with COPD exacerbation, was sent home with abx and a steroid taper. Steroid taper ended on Sunday, patient began to feel worse on Sunday. He returned to the hospital with SOB. CXR showed pneumonia. He was placed on Bipap, but unfortunately continued to decompensate and required intubation. Patient had an episode of hypotension as well, so an arterial line was placed for monitoring. He is not on pressors at this time. Question of sepsis. Bronchoscopy performed yesterday and washings sent for culture. Patient is on abx for pneumonia. ABGs improved on ventilator. PFTs in 2016 revealed FEV1 11%, indicating severe COPD and end-stage disease. This is now his second hospitalization. Palliative care consulted to discuss goals of care. -Met with patient and family in room 108. , Irma, daughter Jia, sister in law, and mother in law at the bedside. -Patient sedated on mechanical ventilator, current settings are: FiO2 0.40 RR 26 PEEP 5. -Yesterday, the patient traumatically self extubated himself, requiring the shoe cleaner and respiratory therapy to hand ventilate with an ambu bag as the patient became agitated, tachycardic, and tachypnic. The patient was reintubated. Family were present for this event. -A weaning trial was attempted today however, after 45 minutes became tachypnic and tachycardic. -The family understands that patient's lung disease is end stage, and that patient is at high risk for decompensation after extubation and understand their options are limited. -The patients and daughter did decide that they do not want him to have CPR in the event of cardiac arrest, patient now DNR. -After lengthy conversation, Irma stated she would NOT want the patient to receive a tracheostomy. -Irma called family in [place], who decided that they would not want to come to [place] prior to the patient's . -This decision is VERY difficult for the patients and she agreed that she knows she is doing this continued treatment for herself. -The patients daughter was very supportive and clear that he would not want this. -Multiple times throughout our visits throughout the day, the patient spontaneously woke up with widened eyes, and he would grab Irma's hand attempting to communicate. This became upsetting to the patient and to her because she was frustrated she could not understand. -I ended up speaking with the patients outside the room and she just wishes he could tell her his wishes. It appeared that he was trying to say 'I love you' to her and she said 'he never says that'. - and daughter both state that patient has made comments about living a good life and being ready to . -Plan is to continue care for 24-48 hours, hopefully extubate patient and allow him to participate in goals of care conversation; however, they did decide that they, at this time, will not reintubate once he is extubated if he is unable to communicate his wishes. -It is unlikely due to the extent of his disease that he will be able to maintain spontaneous breathing for any lengthy amount of time. -This family, specifically the patients , will require additional support throughout the next few days. -She advised she needs 'a few more days', which is reasonable given the circumstance of how young he is and she has seen him 'pull through' before. -Plan for terminal extubation if not improvement on Sunday when pt and daughter present and ready. -Please contact palliative care for any assistance with family discussions. (2) COPD exacerbation: (3) Acute on chronic respiratory failure with hypoxia and hypercapnia: (4) Pneumonia: Subjective Patient intubated, opens eyes intermittently and attempts to speak. Patient on sedation, Fentanyl and Propofol Multiple family members at bedside today. See A/P for further details. Review of Systems Review of Systems: Unobtainable due to endotracheal tube Physical Exam Constitutional: + acute distress and + ill appearing Eyes: PERRL, conjunctivae normal, anicteric sclerae Respiratory: + cough and + tachypneic Auscultation: + rhonchi intubated ETT #7.5 Cardiovascular: RRR, no murmur, no edema Gastrointestinal (Abdomen): normal bowel sounds, soft, nontender, no hepatosplenomegaly Skin: no rashes, warm and dry + crusts and + dry skin Psychiatric: Orientation: alert Eye Contact: + poor eye contact Genitourinary: indwelling boyer catheter Results & Data Vital Signs (Past 12 Hours) Vital Signs Pulse Resp BP Pulse Ox 11/06/18 09:43 102 H 25 H 90 11/06/18 09:00 89 89 L 11/06/18 08:15 82 11 L 96 11/06/18 08:01 64 126/71 95 11/06/18 08:00 67 94 11/06/18 07:13 63 26 H 98 11/06/18 07:00 63 144/64 H 98 11/06/18 05:54 26 H 11/06/18 05:32 64 24 95 11/06/18 04:01 62 114/60 93 11/06/18 04:00 63 92 11/06/18 03:45 62 93 11/06/18 03:30 60 93 11/06/18 03:15 62 93 11/06/18 03:11 64 91 11/06/18 03:10 69 90 11/06/18 03:09 76 11/06/18 03:00 62 134/66 94 11/06/18 02:45 61 93 11/06/18 02:30 62 95 11/06/18 02:15 62 95 11/06/18 02:10 61 24 94 11/06/18 02:01 62 134/69 95 11/06/18 02:00 61 95 11/06/18 01:45 60 97 11/06/18 01:30 60 97 11/06/18 01:15 61 97 11/06/18 01:01 62 139/71 100 11/06/18 01:00 61 97 11/06/18 00:45 60 95 11/06/18 00:30 61 95 11/06/18 00:15 60 95 11/06/18 00:00 62 131/64 94 11/05/18 23:50 61 24 94 11/05/18 23:45 63 94 PG Care Time/CCT Total # of Minutes Spent Total Time Spent with Patient: Total time spent is greater than 50% in coordination of care (as documented) at patient's floor/unit and/or counseling patient: 90 Time Spent Midlevel Total time spent 90 minutes with > 50% of that time spent assessing the patient, discussing goals of care and decision making on multiple occasions with multiple family members both in and out of the room. (1) Pneumonia Laterality: unspecified laterality Lung location: unspecified part of lung Pneumonia type: due to unspecified organism Qualified Code(s): J18.9 - Pneumonia, unspecified organism
[2018-11-06] MEDS ORDERED: POLYETHYLENE (MIRALAX) 17 GM PACK NG ONE (11:45)
[2018-11-06] MEDS: ENOXAPARIN INJ 40 MG/0.4 ML SYR SQ SCH (12:36)
[2018-11-06] MEDS: AMPICILLIN 2,000 MG in SODIUM CHLOR 0.9% AD-VAN 100 ML IV SCH ×2 (15:03→20:49)
--- NOTE | 2018-11-06 20:09 | Hospitalist Progress Note ---
Date of Service November 06, 2018 Assessment & Plan (1) Acute on chronic respiratory failure with hypoxia and hypercapnia: Managing as HCAP, continue current antibiotics and supportive care. Cautiously continue this level of care. ICU and palliative input appreciated. (2) COPD exacerbation: (3) Pneumonia: (4) Admitted to intensive care unit: (5) Tobacco use disorder: Subjective No meaningful HPI or review of systems obtainable. ICU and palliative team input greatly appreciated. Cautiously continuing current care. Review of Systems Review of Systems: Unobtainable due to cognitive status Physical Exam Physical Exam: Sedated on the ventilator no distress. Easy chest rise and fall on the ventilator. No focal neurologic deficits noted at rest, obviously exam fairly difficult due to state. No pallor or icterus. Results & Data Vital Signs (Past 12 Hours) Vital Signs Pulse Resp BP Pulse Ox 11/06/18 18:50 78 27 H 100 11/06/18 18:00 68 95 11/06/18 17:01 90 172/81 H 94 11/06/18 17:00 107 H 91 11/06/18 16:06 78 31 H 93 11/06/18 16:01 104 H 184/80 H 93 11/06/18 16:00 110 H 85 L 11/06/18 15:00 68 126/65 89 L 11/06/18 14:00 64 130/56 L 91 11/06/18 13:46 83 114/60 95 11/06/18 13:25 62 27 H 92 11/06/18 13:00 63 114/60 89 L 11/06/18 12:00 63 100/51 L 89 L 11/06/18 11:05 73 26 H 94 11/06/18 11:01 76 118/77 93 11/06/18 11:00 73 94 11/06/18 10:01 94 H 154/76 H 89 L 11/06/18 10:00 85 89 L 11/06/18 09:43 102 H 25 H 90 11/06/18 09:00 89 89 L 11/06/18 08:15 82 11 L 96 PG Care Time/CCT Total # of Minutes Spent Total Time Spent with Patient: Total time spent is greater than 50% in coordination of care (as documented) at patient's floor/unit and/or counseling patient: (1) Pneumonia Laterality: unspecified laterality Lung location: unspecified part of lung Pneumonia type: due to unspecified organism Qualified Code(s): J18.9 - Pneumonia, unspecified organism
[2018-11-06] MEDS: POLYETHYLENE (MIRALAX) 17 GM PACK GT SCH (20:47)
[2018-11-06] MEDS: SENNA 17.6 MG/10 ML UDP PO SCH (20:47)
[2018-11-06] MEDS ORDERED: POLYETHYLENE (MIRALAX) 17 GM PACK NG SCH (21:00)
[2018-11-06] MEDS ORDERED: POLYETHYLENE (MIRALAX) 17 GM PACK PO SCH (21:00)
[2018-11-06] MEDS: PEPTAMEN INTENSE VHP 1.0 CAL 1,000 ML BAG GT SCH (21:24)
[2018-11-07] MEDS: ALBUT/IPRATROP 3MG/0.5MG NEB 3 ML VIAL INH SCH ×4 (00:49→21:53)
[2018-11-07] MEDS: AMPICILLIN 2,000 MG in SODIUM CHLOR 0.9% AD-VAN 100 ML IV SCH ×4 (02:21→22:42)
[2018-11-07] MEDS: fentaNYL DRIP 1,250 MCG/250 ML BAG IV SCH ×3 (03:27→13:47)
[2018-11-07 04:15] LABS: Basophils # (auto) 0.01 K/uL (0-0.2); Basophils % (auto) 0.1 %; Hematocrit (blood only) 27.2 % (42-52); Hemoglobin 8.7 g/dL (14.0-18.0); Immature Granulocytes # (auto) 0.02 K/uL (0.00-0.02); Immature Granulocytes % (auto) 0.3 %; Lymphocytes # (auto) 1.19 K/uL (1.2-3.4); Lymphocytes % (auto) 15.4 %; Mean Corpuscular Hemoglobin 29.9 pg (25-34); Mean Corpuscular Volume 93.5 fL (80-100); Mean Platelet Volume 9.1 fL (7.4-10.4); Monocytes # (auto) 0.73 K/uL (0.11-0.59); Monocytes % (auto) 9.4 %; Neutrophils # (auto) 5.79 K/uL (1.4-6.5); Neutrophils % (auto) 74.8 %; Platelet Count 177 K/uL (130-400); RDW Coefficient of Variation 14.7 % (11.5-14.5); RDW Standard Deviation 50.4 fL (36.4-46.3); Red Blood Count 2.91 M/uL (4.7-6.1); White Blood Count 7.74 K/uL (4.8-10.8)
[2018-11-07 04:39] LABS: BUN Creatinine Ratio 84.1 (10-20); Calcium 7.9 mg/dl (8.5-10.1); Creatinine Clr Calc Pharmacy 154.1 ml/min; Est GFR (African American) 140.2; Magnesium 2.4 mg/dl (1.8-2.4); Potassium 4.2 mmol/L (3.5-5.1)
[2018-11-07 04:47] LABS: Phosphorus 1.9 mg/dl (2.5-4.9)
[2018-11-07 05:56] LABS: iSTAT Art Bld Gas pCO2 Correct 60 mmHg (35-46); iSTAT Art Bld Gas pH Corrected 7.404 (7.35-7.45); iSTAT Arterial Blood Gas HCO3 37 meg/L (19-24); iSTAT Arterial Blood Gas pCO2 60 mmHg (35-46); iSTAT Arterial Blood Gas pO2 76 mmHg (80-95); iSTAT Arterial Blood Gas pO2 C 75; iSTAT Carbon Dioxide 39 mEq/l (24-31); iSTAT Site Art Line
--- NOTE | 2018-11-07 07:21 | Critical Care Progress Note ---
Date of Service November 07, 2018 Assessment & Plan (1) Admitted to intensive care unit: Reason Critically Ill: 67-year-old male here for acute on chronic COPD exacerbation. 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 Cardiac: -Hemodynamically stable Respiratory: Acute on chronic COPD exacerbation Patient is a lengthy history of smoking, and is now entered end-stage COPD. Normally he is on chronic oxygen 3 L at home. Family reports patient has recently completed antibiotic and steroid taper from last hospital admission, family reports recently the patient has had worsening mental status and increased confusion. The patient is also experienced difficulty maintaining oxygen saturation as he is self titrated himself up to 5 L of oxygen. When EMS arrived to the patient's house he was satting 70% on 5 L O2, and nonrebreather mask was placed and the patient was emergently transferred to [facility]. Upon arrival he was evaluated, and the emergency department attendings did everything possible to avoid intubation. However the patient's mental status continued to decline, and his ABG became increasingly worse. After javy conversation with the family about intubation and how the patient would likely be difficult to wean, the patient was subsequently intubated. The ICU team was consulted for transfer to the ICU. Currently intubated, DC'd Versed started fentanyl for pain management and sedation -Sedation vacations ordered Prednisone GT 40 mg daily Duo nebs every 6 hours Albuterol nebs every 2 as needed -Palliative consult placed -Per family patient would not want prolonged intubation or tracheostomy, however the are hopeful the patient will be extubated and be ruma to participate in the conversation -Patient is now DNR -Goals of care need to be clarified -Continue restraints to prevent self extubation HCAP Pneumonia Patient's recent clinical history of worsening ability to oxygenate, poor mentation, and chronic cough are all indicative of pneumonia. It is highly unusual that the patient would develop a pneumonia imaging upon admission demonstrated diffuse groundglass opacities throughout all lung verma highly suggestive of pneumonia, official read is pending. There are no air-fluid levels present. Physical exam does not demonstrate significant wheezes, rales, rhonchi however. It is difficult to appreciate secondary to intubation. Given patient's frequent hospitalizations, and recent completion of antibiotics, will be treating this is H CAP. Patient does have an elevated procalcitonin to 1.13 lactate depressed to 0.58. However the patient does not have a white count currently, no fever, no chills and hypertensive on admission. -Blood cultures obtained follow-up results. White count trending down -Bronc washings demonstrate probable Haemophilus Influenzae continue coverage with cefipme -Trend CBC -Modified antibiotic therapy -DC'd azithromycin -Continue cefepime day4 -dc'd Vancomycin -Else as above Acute on chronic respiratory failure with hypoxia and hypercapnia See above GI: -N.p.o. RENAL/LYTES: -No significant electrolyte derangement. -Replace lytes as needed. -BUN improving, cr stable. ? bun elevation 2/2 peptamin VHP : - No concerns at this time. boyer in place ENDO: -No concerns at present HEME: Hemoglobin has been trending downward with no clear etiology 11.1 on admission now stable at 8.5 iron labs demonstrate decrease iron decreased TIBC decreased transferrin and extremely elevated ferritin with a normal MCV this is likely indicative of an inflammatory marker. In the remainder of his iron labs were depressed likely from anemia of chronic disease versus acute anemia. Unclear as to why his hemoglobin dropped so profoundly we will continue to trend. Hemoglobin is subsequently stabilized likely representing hemodilution secondary to fluid resuscitation. -H&H stable ID: HCAP pneumonia -See above -Monitor fever curve. -afebrile without white count since admission INTEGUMENTARY: -No acute concerns at present LINES/IV ACCESS: -PIVs x 3 intact. DVT PROPHYLAXIS: -SCDs and Lovenox 40 mg every 6 hours Dispo: ICU Thank you for allowing us to be part of this patient's care. Please refer to Dr. Moreno's documentation for any further recommendations. (2) Acute encephalopathy: (3) Moderate protein-energy malnutrition: (4) Acute on chronic respiratory failure with hypoxia and hypercapnia: (5) Goals of care, counseling/discussion: Supervising Physician Co-Signing Physician Notes Dr. Painting was the resident-physician during care of patient. I separately evaluated patient for mitchell portions of the history and the exam. I was present during the critical portion of medical decision making, and I discussed the case with the resident. I generally agree with the findings and plan except for any additions/exceptions noted. Patient failed spontaneous breathing trial again today. He had a high respiratory rate, hypertension and hypoxemia. He does not appear to be progressing along as expected. Patient's family is likely going to move towards compassionate extubation tomorrow once all family is available. Continue supportive management for now. Continue sedation. I have personally spent 50 minutes of critical care time in the direct management of this patient. This is a life/limb threatening event. This includes time spent evaluating patient, direct bedside care, chart review, placing orders, interpretation of diagnostic studies, discussion with consultants, patient, and/or family members regarding treatment decisions, as well as other required patient management activities. This time is exclusive of all separately billable procedures, and teaching time and separate from and in addition to any other critical care service time. Subjective patient continues to be intubated, responsive to stimulation.Will attempt to wean today with sedation vacation. Family still contemplating goals of her care.patient has an indwelling Boyer, tube feeds, sedated. No acute concerns Physical Exam Physical Exam: General: Elderly gentleman pale appearing, cachectic, intubated HEENT: Normocephalic atraumatic Neck: Normal to visual inspection, trachea midline, did not appreciate signi ficant JVD Cardiac:Regular rate and rhythm, extremities warm well perfused, normal S1, normal S2, did not appreciate any gallops, negative pedal edema, Respiratory: Difficult exam secondary to intubation, ET tube in place, otherwise clear to auscultation bilaterally GI: hypoactive Bowel sounds present, nondistended MSK: Deferred Skin: Normal visual inspection Neuro: Sedated, responds to verbal stimuli Psych: Sedated Results & Data Vital Signs (Past 12 Hours) Vital Signs Pulse Resp BP Pulse Ox 11/07/18 05:30 26 H 11/07/18 01:00 77 28 H 154/66 H 93 11/07/18 00:00 64 129/62 92 11/06/18 23:01 67 107/62 93 11/06/18 23:00 66 93 11/06/18 22:38 68 26 H 95 11/06/18 22:00 63 136/61 94 11/06/18 21:55 66 138/60 11/06/18 21:00 71 92 11/06/18 20:00 67 96 Laboratory Results 11/07/18 11/07/18 11/07/18 Range/Units 05:42 03:50 03:50 WBC 7.74 (4.8-10.8) K/uL RBC 2.91 L (4.7-6.1) M/uL Hgb 8.7 L (14.0-18.0) g/dL Hct 27.2 L (42-52) % MCV 93.5 (80-100) fL MCH 29.9 (25-34) pg MCHC 32.0 (32-36) g/dL RDW Std Deviation 50.4 H (36.4-46.3) fL RDW Coeff of Cherrie 14.7 H (11.5-14.5) % Plt Count 177 (130-400) K/uL MPV 9.1 (7.4-10.4) fL Immature Gran % (Auto) 0.3 % Neut % (Auto) 74.8 % Lymph % (Auto) 15.4 % [place] % (Auto) 9.4 % Eos % (Auto) 0.0 % Baso % (Auto) 0.1 % Immature Gran # (Auto) 0.02 (0.00-0.02) K/uL Neut # (Auto) 5.79 (1.4-6.5) K/uL Lymph # (Auto) 1.19 L (1.2-3.4) K/uL [place] # (Auto) 0.73 H (0.11-0.59) K/uL Eos # (Auto) 0.00 (0-0.5) K/uL Baso # (Auto) 0.01 (0-0.2) K/uL Sample Site Art Line POC pH 7.40 (7.35-7.45) POC pCO2 60 H (35-46) mmHg POC pO2 76 L (80-95) mmHg POC HCO3 37 H (19-24) ismael/L POC Total CO2 39 H (24-31) mEq/l POC Base Excess 13.0 H (-9-1.8) ismael/L ABG pH (Temp Correct) 7.404 (7.35-7.45) ABG pCO2 (Temp Corrct 60 H (35-46) mmHg POC ABG pO2 at Pt Temp 75 POC ABG O2 Sat 95.0 (90-95) % [place] Test NA O2 Delivery Device Ventilator POC O2 Rate 26 Minute Ventilation 9.4 Tidal Volume 450 PEEP 5 Sodium 141 (136-145) mmol/L Potassium 4.2 (3.5-5.1) mmol/L Chloride 103 (98-107) mmol/L Carbon Dioxide 35 H (21-32) mmol/L Anion Gap 3.0 (3-11) BUN 36 H (7-18) mg/dl Creatinine 0.43 L (0.6-1.4) mg/dl Est Cr Clr Drug Dosing 154.1 ml/min Est GFR ( Amer) 140.2 Est GFR (Non-Af Amer) 121.0 BUN/Creatinine Ratio 84.1 H (10-20) Glucose 99 (70-99) mg/dl Calcium 7.9 L (8.5-10.1) mg/dl Phosphorus 1.9 L D (2.5-4.9) mg/dl Magnesium 2.4 (1.8-2.4) mg/dl Medications Administered Current Inpatient Medications Acetaminophen (Tylenol) 650 mg TN Q4H PRN PRN Reason: mild pain or fever Stop: 12/03/18 06:56 Last Admin: 11/03/18 18:39 Dose: 650 mg Documented by: Albuterol (Duoneb) 3 ml INH Q6R [facility] Stop: 12/03/18 06:59 Last Admin: 11/07/18 09:11 Dose: 3 ml Documented by: Docusate Sodium (Colace) 100 mg PO BID [facility] Stop: 12/05/18 20:59 Last Admin: 11/07/18 09:52 Dose: 100 mg Documented by: Enoxaparin Sodium (Lovenox) 40 mg SQ Q24H [facility] Stop: 12/05/18 09:59 Last Admin: 11/07/18 09:52 Dose: 40 mg Documented by: Fentanyl Citrate (Fentanyl Citrate) 25 mcg IV ONE PRN PRN Reason: Pain Not Controlled by Drip Stop: 11/18/18 08:50 Last Admin: 11/05/18 21:45 Dose: 25 mcg Documented by: Famotidine 20 mg/ Syringe 5 mls @ 2.5 mls/min IV BID [facility] Stop: 12/03/18 08:59 Last Admin: 11/07/18 09:52 Dose: 2.5 mls/min Documented by: Fentanyl Citrate (Fentanyl Drip) 1,250 mcg in 250 mls @ 15 mls/hr IV .[id number] [facility]; Protocol Stop: 11/18/18 08:50 Last Titration: 11/07/18 11:35 Dose: 100 mcg/hr, 20 mls/hr Documented by: Propofol (Diprivan) 1,000 mg in 100 mls @ 3.798 mls/hr IV .Q24H [facility]; Protocol Stop: 11/08/18 16:29 Last Titration: 11/07/18 11:35 Dose: 15 mcg/kg/min, 5.7 mls/hr Documented by: Ampicillin Sodium 2,000 mg/ (Sodium Chloride) 100 mls @ 200 mls/hr IV Q6H [facility] Stop: 11/10/18 23:59 Last Infusion: 11/07/18 11:16 Dose: Infused Documented by: Nutritional Formula (Peptamen Intense Vhp 1.0 [place]) 0 ml GT UD [facility]; Protocol Stop: 12/03/18 09:08 Last Admin: 11/06/18 21:24 Dose: 50 ml Documented by: Polyethylene Glycol (Miralax Powder Packet) 17 gm GT BID [facility] Stop: 12/06/18 20:59 Last Admin: 11/07/18 09:52 Dose: 17 gm Documented by: Prednisone (Prednisone) 40 mg GT DAILY [facility] Stop: 12/07/18 08:59 Last Admin: 11/07/18 09:52 Dose: 40 mg Documented by: Sennosides (Senokot) 17.6 mg PO HS [facility] Stop: 12/05/18 20:59 Last Admin: 11/06/18 20:47 Dose: 17.6 mg Documented by: PG Care Time/CCT Total # of Minutes Spent Total Time Spent with Patient: Total time spent is greater than 50% in coordination of care (as documented) at patient's floor/unit and/or counseling patient: Critical Care Time: Yes Total Critical Care Time: 50 Resident Activity Tracking Resident Involvement: Resident Care Provided Care Provided: Adult Hospital Medicine (ICU: COPD, PNA, END of Life discussions )
[2018-11-07] MEDS: PROPOFOL 1,000 MG/100 ML VIAL IV SCH ×3 (07:57→13:48)
[2018-11-07] MEDS ORDERED: POLYETHYLENE (MIRALAX) 17 GM PACK NG SCH (09:00)
[2018-11-07] MEDS ORDERED: predniSONE 20 MG TAB GT SCH (09:00)
[2018-11-07] MEDS: POLYETHYLENE (MIRALAX) 17 GM PACK GT SCH (09:52)
[2018-11-07] MEDS: DOCUSATE SODIUM SYRUP 100 MG/10 ML UDC PO SCH (09:52)
[2018-11-07] MEDS: ENOXAPARIN INJ 40 MG/0.4 ML SYR SQ SCH (09:52)
[2018-11-07] MEDS: FAMOTIDINE 20 MG in SYRINGE 3 ML IV SCH (09:52)
--- NOTE | 2018-11-07 12:25 | Palliative Care Progress Note ---
Date of Service November 07, 2018 Assessment & Plan (1) Goals of care, counseling/discussion: This is a 67 year old male with PMH end-stage COPD, chronic respiratory failure on 3.5LNC at home, HLD, anxiety GERD, AAA, and others, presented to the hospital yesterday with increased SOB. Patient was just in hospital from 10/16- 10/21 with COPD exacerbation, was sent home with abx and a steroid taper. Steroid taper ended on Sunday, patient began to feel worse on Sunday. He returned to the hospital with SOB. CXR showed pneumonia. He was placed on Bipap, but unfortunately continued to decompensate and required intubation. Patient had an episode of hypotension as well, so an arterial line was placed for monitoring. He is not on pressors at this time. Question of sepsis. Bronchoscopy performed yesterday and washings sent for culture. Patient is on abx for pneumonia. ABGs improved on ventilator. PFTs in 2016 revealed FEV1 11%, indicating severe COPD and end-stage disease. This is now his second hospitalization. Palliative care consulted to discuss goals of care. -Met with patient discussed current concerns and any significant overnight events. -Patient sedated on mechanical ventilator, current settings are: FiO2 0.40 RR 26 PEEP 5. -Patient saturation decreased compared to yesterday, hovering 90%. -Sunday, the patient traumatically self extubated himself, requiring the belt maker helper and respiratory therapy to hand ventilate with an ambu bag as the patient became agitated, tachycardic, and tachypnic. The patient was reintubated. Family were present for this event. -A weaning trial was attempted today and yesterday however, after 30-45 minutes became tachypnic and tachycardic. -The family understands that patient's lung disease is end stage, and that patient is at high risk for decompensation after extubation and understand their options are limited. -The patients and daughter did decide that they do not want him to have CPR in the event of cardiac arrest, patient now DNR. -After lengthy conversation yesterday, Irma stated she would NOT want the patient to receive a tracheostomy. -Irma called family in [place], who decided that they would not want to come to [place] prior to the patient's . -This decision is VERY difficult for the patients and she agreed that she knows she is doing this continued treatment for herself. -The patients daughter was very supportive and clear that he would not want this. - and daughter both state that patient has made comments about living a good life and being ready to . -Plan is to continue care for another 24 hours, hopefully extubate patient and allow him to participate in goals of care conversation; however, they did decide that they, at this time, will not reintubate once he is extubated if he is unable to communicate his wishes. -It is unlikely due to the extent of his disease that he will be able to maintain spontaneous breathing for any lengthy amount of time. -Plan for terminal extubation if not improvement on Sunday when pt and daughter present and ready. -No acute symptom needs at this time. -Please contact palliative care for any assistance with family discussions. (2) COPD exacerbation: (3) Acute on chronic respiratory failure with hypoxia and hypercapnia: (4) Pneumonia: Subjective Patient intubated, opens eyes intermittently and attempts to speak, more calm than yesterday. Patient on sedation, Fentanyl and Propofol No family at bedside during my evaluation See A/P for further details. Physical Exam Constitutional: + acute distress and + ill appearing Eyes: PERRL, conjunctivae normal, anicteric sclerae Respiratory: + cough and + tachypneic Auscultation: + rhonchi Cardiovascular: RRR, no murmur, no edema Gastrointestinal (Abdomen): normal bowel sounds, soft, nontender, no hepatosplenomegaly Skin: no rashes, warm and dry + crusts and + dry skin Psychiatric: Orientation: alert Eye Contact: + poor eye contact Results & Data Vital Signs (Past 12 Hours) Vital Signs Pulse Resp BP Pulse Ox 11/07/18 11:25 109 H 26 H 85 L 11/07/18 09:16 61 26 H 92 11/07/18 05:30 26 H 11/07/18 01:00 77 28 H 154/66 H 93 PG Care Time/CCT Total # of Minutes Spent Total Time Spent with Patient: Total time spent is greater than 50% in coordination of care (as documented) at patient's floor/unit and/or counseling patient: 25 Time Spent Midlevel Total time spent 25 minutes with > 50% of that time spent assessing the patient and collaborating with IDT regarding plan of care. (1) Pneumonia Laterality: unspecified laterality Lung location: unspecified part of lung Pneumonia type: due to unspecified organism Qualified Code(s): J18.9 - Pneumonia, unspecified organism
[2018-11-07] MEDS ORDERED: GLYCOPYRROLATE 0.2 MG/ML VIAL IV PRN (17:08)
--- NOTE | 2018-11-07 19:21 | Hospitalist Progress Note ---
Date of Service November 07, 2018 Assessment & Plan (1) Acute on chronic respiratory failure with hypoxia and hypercapnia: Now extubated with a goal of comfort care. We discussed this at length and in depth. Answered all questions to the best my ability and to patient and family satisfaction. The current goal will be to get him out of the ICU with a comfort goal. In regards to the daughter's question in terms of treatment for the pneumonia, it does seem reasonable to continue antibiotics, and similarly as it relates to his COPD we will continue steroids and nebulizers, as in my opinion measures to promote better breathing certainly will keep someone more comfortable. Further we will add morphine and Ativan as needed pain/dyspnea/agitation. We will work towards a goal of home with hospice [facility]. Again empathy and support provided to family and patient. Case discussed with financial services assistant. (2) COPD exacerbation: (3) Pneumonia: (4) Admitted to intensive care unit: (5) Tobacco use disorder: Subjective Extubated. Patient able to communicate. Does appear to be somewhat confused, occasionally hallucinating. Family and had extensive discussions in regards to terminal extubation end-of-life care. After patient was extubated and able to communicate, family wanted to reiterate discussions with patient himself. Questionable how much true capacity had, given that at times he was hallucinating during the conversation, yet at the same time he did seem to reiterate goals that the family had as far as being comfortable and happy. Certainly in terms of the idea of going home on hospice he seemed to endorse agreement. Further with reiteration of discussions with the entire family, all were in agreement that comfort care was in his best interest. The daughter asked about finishing a course of antibiotics for the pneumonia, I discussed that while controversial, as far as how it pertains to true comfort care, it certainly always seems reasonable in my mind to do so, particularly because at times it may allow a little bit more time at home on hospice. All questions answered to the best my ability and to patient and family satisfaction, empathy and support provided. Patient himself is not extremely dyspneic. Review of Systems Review of Systems: All systems reviewed & are unremarkable except as noted in HPI & below Physical Exam Physical Exam: In general he is awake and alert, mildly confused. No distress. HEENT normal cephalic atraumatic mucous members are moist. Breathing predominantly unlabored, does occasionally have a little bit of labored breathing accessory muscles but generally does not appear overtly dyspneic. Neuro shows no focal deficits. His voice is somewhat hoarse. Results & Data Vital Signs (Past 12 Hours) Vital Signs Pulse Resp BP Pulse Ox 11/07/18 14:01 91 H 155/66 H 90 11/07/18 14:00 76 94 11/07/18 13:44 84 26 H 94 11/07/18 13:01 73 107/61 90 11/07/18 13:00 76 90 11/07/18 12:01 91 H 163/68 H 89 L 11/07/18 12:00 92 H 90 11/07/18 11:25 109 H 26 H 85 L 11/07/18 11:01 89 136/74 89 L 11/07/18 11:00 83 90 11/07/18 10:00 93 H 169/71 H 91 11/07/18 09:16 61 26 H 92 11/07/18 09:00 72 147/61 H 93 11/07/18 08:00 73 132/63 93 PG Care Time/CCT Total # of Minutes Spent Total Time Spent with Patient: Total time spent is greater than 50% in coordination of care (as documented) at patient's floor/unit and/or counseling patient: (1) Pneumonia Laterality: unspecified laterality Lung location: unspecified part of lung Pneumonia type: due to unspecified organism Qualified Code(s): J18.9 - Pneumoni a, unspecified organism
[2018-11-07] MEDS ORDERED: LORazepam 0.5 MG TAB SL PRN (21:02)
[2018-11-07] MEDS ORDERED: MoRPHine SULFATE 2 MG/ML CARP IV PRN (21:02)
[2018-11-07] MEDS ORDERED: methylPREDNISolone 40 MG in SYRINGE 0 ML IV SCH (21:15)
[2018-11-07] MEDS: methylPREDNISolone 40 MG in SYRINGE 0 ML IV SCH (22:14)
[2018-11-08] MEDS: ALBUT/IPRATROP 3MG/0.5MG NEB 3 ML VIAL INH SCH ×3 (04:37→13:55)
[2018-11-08] MEDS: AMPICILLIN 2,000 MG in SODIUM CHLOR 0.9% AD-VAN 100 ML IV SCH ×3 (06:02→15:05)
[2018-11-08] MEDS: methylPREDNISolone 40 MG in SYRINGE 0 ML IV SCH (07:43)
--- NOTE | 2018-11-08 12:31 | Palliative Care Progress Note ---
Date of Service November 08, 2018 Assessment & Plan (1) Goals of care, counseling/discussion: -Patient is awake, alert and oriented x3, but still mildly delirious. Answered questions appropriately, but then was talking about someone smoking outside of his room. -Daughter Jia, and [id number] at bedside. Daughter is very happy that patient is awake, communicative, and even able to eat. -Patient looks stable. He is at risk for decline/decompensation again. As of now, he is DNR/DNI. not at bedside to complete POLST. -Likely will see how patient does over the weekend and make discharge plans. Case management following. (2) COPD exacerbation: (3) Acute on chronic respiratory failure with hypoxia and hypercapnia: (4) Pneumonia: Subjective patient was terminally extubated yesterday evening and is now awake, alert and doing quite well. He denies any complaints. Is coughing and producing a lot of sputum. Review of Systems Constitutional: + weakness Ear, Nose, Mouth, Throat: no dysphagia Respiratory: + cough and + sputum production Cardiovascular: no chest pain and no edema Gastrointestinal: no abdominal pain Neurologic: + confusion (reported by family) Physical Exam Neurologic: moves all extremities and awake Psychiatric: Orientation: alert (periods of confusion), oriented to person, oriented to place and oriented to time Results & Data Vital Signs (Past 12 Hours) Vital Signs Pulse Resp Pulse Ox 11/08/18 07:28 92 H 18 94 Supervising Physician Co-Signing Physician Notes Patient seen and examined along with RAMIRO Alegria. Patient awake and alert, confused, patient's daughter and patient's [id number] at bedside. PE: Awake and alert, NAD HEENT: EOMI, [place] Respiratory: Poor air movement bilaterally, unlabored, increased work of breathing with speech CV: Regular rate Abdomen: Not distended Neuro: Awake and alert, confused at times Agree with above note, assessment and plan as per RAMIRO Alegria-we will continue to follow and assist family with medical decision making. Time Spent Midlevel 35 minutes with >50% of the time spent at bedside with patient and family discussing condition and GOC. (1) Pneumonia Laterality: unspecified laterality Lung location: unspecified part of lung Pneumonia type: due to unspecified organism Qualified Code(s): J18.9 - Pneumonia, unspecified organism
[2018-11-08] MEDS ORDERED: ALBUT/IPRATROP 3MG/0.5MG NEB 3 ML VIAL INH PRN (13:16)
[2018-11-08] MEDS: FAMOTIDINE 20 MG in SYRINGE 3 ML IV SCH (15:27)
[2018-11-08] MEDS: SENNA 17.6 MG/10 ML UDP PO SCH (15:27)
[2018-11-08] MEDS: DOCUSATE SODIUM SYRUP 100 MG/10 ML UDC PO SCH (15:27)
[2018-11-08] MEDS: POLYETHYLENE (MIRALAX) 17 GM PACK GT SCH (15:27)
[2018-11-08] MEDS ORDERED: IPRATROPIUM BROMIDE/ALBUTEROL respimat INH INH PRN (17:00)
[2018-11-08] MEDS ORDERED: IPRATROPIUM BROMIDE/ALBUTEROL respimat INH INH SCH (17:00)
--- NOTE | 2018-11-08 18:13 | Hospitalist Progress Note ---
Date of Service November 08, 2018 Assessment & Plan (1) Acute on chronic respiratory failure with hypoxia and hypercapnia: Now extubated with a goal of comfort care. Working towards home with hospice planning. Will transition all to oral/sublingual given that he is not having extensive needs, and the will then be able to have more of a measure of comfort and confidence that what she can do at home will be L to keep him comfortable. Continue supportive care. Educated family in regards to delirium, given that it may not improve quickly. Appreciate palliative input, hospice being arranged. Home once the family is ready. (2) COPD exacerbation: Continue steroids for a comfort goal (3) Pneumonia: Finish course of antibiotics for comfort goal (4) Admitted to intensive care unit: (5) Tobacco use disorder: Subjective Seems to be doing okay, no acute complaints. Extensive discussions with family, patient reasonably delirious so not able to have meaningful discussions with him. He does deny any significant pain or dyspnea. very much would like to take him home, but definitely does not feel ready yet. Extensive discussions on his current care, as well as the transition to home, as well as also discussed deliriums in depth. Review of Systems Review of Systems: Unobtainable due to cognitive status Seems to be negative as best can be ascertained Physical Exam Physical Exam: In general he is awake and alert, but talking about raining in the hallway. No distress. HEENT normocephalic atraumatic mucous membranes moist. Breathing unlabored no accessory muscle use good effort. Skin shows no rashes no pallor or icterus. Results & Data Vital Signs (Past 12 Hours) Vital Signs Pulse Resp Pulse Ox 11/08/18 07:28 92 H 18 94 PG Care Time/CCT Total # of Minutes Spent Total Time Spent with Patient: Total time spent is greater than 50% in coordination of care (as documented) at patient's floor/unit and/or counseling patient: (1) Pneumonia Laterality: unspecified laterality Lung location: unspecified part of lung Pneumonia type: due to unspecified organism Qualified Code(s): J18.9 - Pneumonia, unspecified organism
[2018-11-08] MEDS ORDERED: MoRPHine SULFATE 5 MG/0.25 ML UDP PO PRN (18:14)
[2018-11-08] MEDS: FLUTICASONE/SALMETEROL (ADVAIR) 500/50 INH 14 PUFF INH SCH (20:50)
[2018-11-08] MEDS: AMOXICILLIN 500 MG CAP PO SCH (20:52)
[2018-11-09] MEDS: FLUTICASONE/SALMETEROL (ADVAIR) 500/50 INH 14 PUFF INH SCH (07:35)
[2018-11-09] MEDS: AMOXICILLIN 500 MG CAP PO SCH ×2 (07:35→13:51)
[2018-11-09] MEDS ORDERED: predniSONE 20 MG TAB PO SCH (09:00)
[2018-11-09] MEDS ORDERED: TIOTROPIUM BROMIDE 5 PUFF/90 MCG INH INH SCH (09:00)
[2018-11-09] MEDS ORDERED: fentaNYL citrate 100 MCG/2 ML VIAL IV ONE (16:34)
[2018-11-09] MEDS ORDERED: ETOMIDATE 2 MG/ML 20 ML VIAL IV ONE (16:34)
--- NOTE | 2018-11-09 19:28 | Discharge Summary ---
Date of Service November 09, 2018 Principal Diagnosis Acute on chronic hypoxic and hypercapnic respiratory failure related to healthcare associated pneumonia superimposed on end-stage COPD Discharge Exam Pleasantly confused off and on. No distress. Breathing unlabored no accessory muscle use good effort. Appearing overall comfortable. Discharge Data Allergies Allergy/AdvReac Type Severity Reaction Status Date / Time propoxyphene AdvReac Intermediate hallucinati Verified 11/07/18 15:06 on house dust mite AdvReac Mild Sneezing Verified 11/07/18 15:06 methadone AdvReac Mild Anxiety Verified 11/07/18 15:06 ragweed pollen AdvReac Mild Sneezing Verified 11/07/18 15:06 Consultations 11/03/18 05:24 ED Decision to Admit Stat 11/03/18 05:31 Consult Filler Wiper Stat 11/03/18 06:57 Consult Case Management - Discharge Planning Routine Consult Filler Wiper Routine 11/03/18 11:00 Consult Palliative Care Routine 11/07/18 21:02 Consult Case Management - Discharge Planning Routine Ordered Studies 11/03/18 03:33 CT angio chest PE protocol Urgent 11/03/18 10:16 US point of care ultrasound Routine Hospital Course (1) Acute on chronic respiratory failure with hypoxia and hypercapnia: End-stage COPDhome with hospice care. Discussed extensively with family throughout the day, answered all questions to the best my ability and to their satisfaction. So far keeping him comfortable has been fairly easy. Delirium/metabolic encephalopathyhe seems to be safe as long as he is supervised, the family is aware of this. We have had extensive discussions on delirium, what they are, and the possibility that he may be delirious for a while versus whether or not it may improve once he gets to a familiar environment. They are aware of this. They are also aware that if they feel at all likely cannot take care of him we will take him back at any time if they need. (2) COPD exacerbation: Continue steroids for a comfort goal. Will titrate from 60 down to 10, but given the severity of his COPD and the fairly short prognosis making steroid problems very unlikely, once he reaches 10 mg on the taper we will keep that indefinitely (3) Pneumonia: Finish course of antibiotics for comfort goal (4) Admitted to intensive care unit: (5) Tobacco use disorder: Total Time Total Time Spent Total Time Spent (In Minutes): Greater than 30 Discharge Plan Discharge Items Patient Disposition: Hospice - Home Reason For Visit: RESPIRATORY FAILURE Discharge Diagnosis: end stage COPD Activity: Resume your previous activity Non-emergency contact: Primary Care Provider Call non-emergency contact if: you have any medication questions and your symptoms worsen Follow-up/Referrals: Lachelle Wong MD [Primary Care Provider] - Diet: Regular Addtl Attending Provider Instructions: we'll complete a course of amoxicillin for the pneumonia (the bacteria was a strain of hemophilus (a common pneumonia bacteria) that is quite sensitive to penicillins, so the amoxicillin will readily treat it) we'll keep him on steroids indefinitely to keep lungs open - we'll go from 60mg a day down to 10mg -- 60mg for 2 days, then 50mg for 2 days, then 40mg for 2 days, then 30mg for 2 days, then 20mg for 2 days, then 10mg indefinitely when he feels short of breath - you can turn up oxygen to see if it helps, give a puff of combivent or a duoneb to see if it helps, and if neither help or he really looks like he's struggling, then you'd give him a dose of the roxanol (morphine) under the tongue, or the ativan (lorazepam) under the tongue Pending Studies at Discharge: No Stand-Alone Forms: My [facility] Medications and DC Order Prescriptions: New amoxicillin 875 mg tablet 875 mg PO BID Qty: 14 RF: 0 prednisone 10 mg tablet 10 mg PO UD Qty: 100 RF: 0 ipratropium-albuterol 0.5 mg-3 mg(2.5 mg base)/3 mL solution for nebulization 3 ml INH QID PRN (Reason: wheezing) Qty: 180 RF: 0 morphine concentrate 100 mg/5 mL (20 mg/mL) solution 5 mg PO Q3H PRN (Reason: pain) Qty: 15 RF: 0 lorazepam 2 mg/mL concentrate 0.25 mg PO Q4 PRN (Reason: sob or restless) Qty: 30 RF: 0 Continued paroxetine HCl 30 mg tablet 30 mg PO DAILY Qty: 90 RF: 1 albuterol sulfate 90 mcg/actuation Hfa Aerosol Inhaler 2 puff INHALATION Q6H PRN (Reason: Wheezing) RF: 0 Spiriva with HandiHaler 18 mcg Capsule, W/Inhalation Device 1 cap INHALATION QAM RF: 0 Combivent Respimat 20-100 mcg/actuation Mist 1 puff INHALATION QID RF: 0 fluticasone propion-salmeterol [Advair Diskus] 500-50 mcg/dose Blister With Device 1 inh INHALATION BID RF: 0 Brovana 15 mcg/2 mL Solution For Nebulization 15 mcg INHALATION QID PRN (Reason: Shortness Of Breath Or Wheezing) RF: 0 Discontinued alprazolam 0.5 mg tablet 0.5 mg PO TID PRN (Reason: Anxiety) Qty: 90 RF: 0 montelukast [Singulair] 10 mg tablet 10 mg PO HS Qty: 90 RF: 3 mupirocin 2 % ointment 1 applic TOPICAL TID PRN (Reason: Dry Skin) Qty: 30 RF: 5 aspirin [Aspir-81] 81 mg Tablet,Delayed Release (Dr/Ec) 81 mg PO QAM RF: 0 esomeprazole magnesium [Nexium] 40 mg Capsule,Delayed Release(Dr/Ec) 40 mg PO QAM RF: 0 pseudoephedrine-guaifenesin [Mucinex D] 60-600 mg Tablet Extended Release 12 Hr 1 tab PO BID RF: 0 atorvastatin 40 mg Tablet 40 mg PO HS RF: 0 cetirizine 10 mg Tablet,Disintegrating 10 mg PO HS RF: 0 Discharge Orders: Discharge Order (Routine); Ordered 11/09/18 Ordered By: Glenn Cavanaugh Admission Data Admit Date/Time: 11/03/18 06:19 Attending Provider: Glenn Cavanaugh Admit Provider: Chago Duron Primary Care Provider: Lachelle Wong Other Providers: Antwan Díaz ; Andrea Feliz ; Chago Duron ; Rebecca Stout Other Interventions: Discharge Summary Assessment (RN) Last Done: 11/09/18 15:58 DC Date/Time DO NOT enter until pt leaves facility: 11/09/18 16:35
== END 2018-11-09 16:35 | disposition hospice, home (50) | DRG 208 ==
LOC: ED 02:25 → SUATTDRO 06:19 → 1E 06:19 → 4W 11-07 19:08